=== PATIENT | female | born 1970 | race Caucasian/White ===

== ENCOUNTER 2017-09-06 17:14 | Emergency (ER) | payer BC ==
--- OUTSIDE RECORDS SUMMARY | 2017-09-06 17:16 | XMS REPORT | Summary of Care ---
:1970 Author Name INEZ MAYA D.O. Address Unavailable Unavailable , Care Team Providers Name Role Phone VALDEZ DELACRUZ, NA LY Unavailable Unavailable Functional Status Name Dates Details Functional status health issues are not documented Status: Name Dates Details Cognitive status health issues are not documented Status: Problems Name Dates Details Malabsorption due to intolerance, not elsewhere classified (579.8, K90.49) Status: Active Malnutrition (263.9, E46) Status: Active Medications Name Dates Details Medications not documented Allergies and Adverse Reactions Name Dates Details Allergy history not documented Status: Procedures Procedure Dates Details [L] Vitamin D, 25-Hydroxy, Total - [facility] Date: 22-Jul-2017 [QL] COMPREHENSIVE METABOLIC PANEL W/O eGFR Date: 22-Jul-2017 [QLH] VITAMIN A (RETINOL) Date: 22-Jul-2017 [QLH] VITAMIN E (TOCOPHEROL) Date: 22-Jul-2017 Immunization Name Dates Details Immunizations not documented Social History Name Dates Details Unknown if ever smoked Vital Signs Date Test Result Details No Known Vitals to report Results Date Description Value Details [id number] [] CBC (without differential) WBC 11.0 {K/CMM} (Above high threshold) Range: 3.7-10.4 RBC 4.89 {M/CMM} Range: 4.20-5.40 Hgb 14.6 g/dl Range: 12.0-16.0 Hct 43.2 % Range: 36.0-48.0 MCV 88.4 fL Range: 80.0-98.0 MCH 29.9 pg Range: 27.0-31.0 MCHC 33.8 g/dl Range: 32.0-36.0 RDW 13.7 % Range: 11.5-14.5 Platelet 321 {K/CMM} Range: 133-450 Mean Platelet Volume 9.6 fL Range: 7.4-10.4 [id number] [QLH] PTH, INTACT (WITHOUT CALCIUM) Parathyroid Hormone Intact 37.7 pg/ml Range: 18.4-80.1 :01 [[facility]] CMP W/EGFR Sodium Level 141 {mEq/l} Range: 135-145 Potassium Level 4.3 {mEq/l} Range: 3.5-5.1 Chloride Level 108 {mEq/l} Range: 95-109 Carbon Dioxide 24 {mEq/l} Range: 24-32 AGAP 13.3 {mEq/l} Range: 10.0-20.0 Glucose Lvl 100 mg/dl (Above high Range: 70-99 threshold) Comments: Adult reference range values reflect the clinical guidelinesof the [place] [employer]. Creatinine Lvl 0.60 mg/dl Range: 0.50-1.40 Blood Urea Nitrogen 11 mg/dl Range: 7-22 BUN/Creatinine Ratio 18 Range: 6-25 Total Protein 7.3 g/dl Range: 6.4-8.4 Albumin Lvl 4.0 g/dl Range: 3.5-5.0 Globulin 3.3 g/dl Range: 2.7-4.2 A/G Ratio 1.2 Range: 0.7-1.6 Calcium Level Total 9.3 mg/dl Range: 8.5-10.5 ALT 91 u/l (Above high Range: 0-65 threshold) AST 54 u/l (Above high Range: 0-37 threshold) Bili Total 0.4 mg/dl Range: 0.2-1.3 Alk Phos 98 u/l Range: 39-136 eGFR 110 {ML/MIN/1.7} Comments: The eGFR is calculated using the CKD-EPI formula. In most young, healthyindividuals the eGFR will be >90 mL/min/1.73m2. The eGFR declines with age. AneGFR of 60-89 may be normal in some populations, particularly the elderly, forwhom the CKD-EPI formula has not been extensively validated. Use of the eGFR isnot recommended in the following populations:Individuals with unstable creatinine concentratio ns, including patients and those with serious co-morbid conditions.Patients with extremes in muscle mass or diet.The data above are obtained from the National Kidney Disease Education Program(NK DEP) which additionally recommends that when the eGFR is used in patientswith extremes of body mass index for purposes of drug dosing, the eGFR shouldbe multiplied by the estimated BMI. [[facility]] IRON, TOTAL Iron 66 ug/dL Range: 30-160 [[facility]] TSH, 3RD GENERATION TSH 0.860 {uIU/ml} Range: 0.360-3.740 [[facility]] VITAMIN B12 Vitamin B12 Level 304 pg/ml Range: 254-1320 [[facility]] FOLATE, SERUM Folate Level 41.6 ng/ml Range: >=3.0 [[facility]] LIPID PANEL Chol 254 mg/dl (Above high Range: <=199 threshold) Trig 478 mg/dl (Above high Range: <=149 threshold) HDL Cholesterol 40 mg/dl (Below low Range: >=61 threshold) CHD Risk 6.35 (Above high threshold) Range: 3.90-5.80 LDL See Note mg/dl Range: <=99 Comments: LDL cholesterol cannot be calculated due to very high triglycerides (>400mg/dL). Recommend Direct LDL if clinically indicated. VLDL See Note Comments: VLDL - Cholesterol level cannot be accurately calculated due to very hightriglycerides (>400 mg/dL). [[facility]] HEMOGLOBIN A1c Hemoglobin A1c 5.8 % (Above high threshold) Range: <=5.6 [[facility]] VITAMIN B1, WHOLE BLOOD Vitamin B1 Level 177.6 nmol/L Range: 66.5-200.0 Comments: This test was developed and its performance characteristicsdetermined by [facility]. It has not been cleared orapproved by the Food and Drug Administration.Performed At: [address] [id number] [place], [place] [id number] Mcmillan MD Ph:[phone] [H] Vit A Vitamin A Level 43.9 ug/dL Range: 33.1-100.0 Comments: Reference intervals for vitamin A determined from NationalHealth and Nutrition Examination Survey, 4108-3360.Individuals with vitamin A less than 20 ug/dL areconsidered vitamin A deficient and those wit h serumconcentrations less than 10 ug/dL are considered severelydeficient.This test was developed and its performance characteristicsdetermined by [facility]. It has not been cleared orapproved by the Food and Drug Administration.Performed At: [address] [id number] Mcmillan MD Ph:[phone] [id number] [H] Vitamin E Lvl Alpha-Tocopherol 20.6 mg/L Range: 7.0-25.1 Gamma-Tocopherol 2.8 mg/L Range: 0.5-5.5 Comments: Reference intervals for alpha and gamma-tocopheroldetermined from National Health and Nutrition ExaminationSurvey, 8400-3913. Individuals with alpha-tocopherol levelsless than 0.5 mg/L are considered vi tamin E deficient.This test was developed and its performance characteristicsdetermined by [facility]. It has not been cleared orapproved by the Food and Drug Administration.Performed At: [facility] [place], [place] [id number] Mcmillan MD Ph: [phone] [id number] [H] [facility] COMMENT Comments: Test Ordered: [id number] 25-Hydroxyvitamin D LCMS D2+N645-Yartict, Vitamin D 33 ng/mL ESReference Range:All Ages: Target levels 30 - [id number]-[id number], Vitamin D-2 <1.0 ng/mL [id number], Vitamin D-3 33 ng/mL ESPerformed At: [address] [id number] Mcmillan MD Ph:[phone] At: [facility] [address] [place] [id number] Miller MD Ph:[phone] Plan of Care Name Dates Details Planned Observations Planned Goals not documented Instructions Name Dates Details Instructions not documented Encounters Appointment; INEZ MAYA D.O. On: 22-Jul-2017 10:00 Encounter Diagnosis: Problem not documented
--- OUTSIDE RECORDS SUMMARY | 2017-09-06 17:16 | XMS REPORT ---
:1970 Author Organization [employer] Care Team Providers Name Role Phone Garcia, Na Provider Role Unavailable Allergies, Adverse Reactions, Alerts Substance Reaction Event Type N.K.D.A. Info Not Available Non Drug Allergy Problems Problem Type Condition Code Onset Dates Condition Status Problem Nicotine dependence F17.200 Active Assessment Obesity (BMI 35.0-39.9 without E66.9 Active comorbidity) Problem Obesity E66.9 Active Assessment Vitamin D deficiency E55.9 Active Problem Encounter for screening mammogram Z12.31 Active for malignant neoplasm of breast Problem Cigarette nicotine dependence F17.210 Active without complication Problem Effusion of right ankle M25.471 Active Problem Fatty liver K76.0 Active Problem Obesity (BMI 30-39.9) E66.9 Active Assessment Pain in right ankle and joints of M25.571 Active right foot Assessment Abnormal LFTs R94.5 Active Problem Vitamin D deficiency E55.9 Active Assessment Fatty liver K76.0 Active Problem Obesity (BMI 35.0-39.9 without E66.9 Active comorbidity) Problem Abnormal LFTs R94.5 Active Problem Adult general medical exam Z00.00 Active Problem Pain in right ankle and joints of M25.571 Active right foot Assessment Hypertriglyceridemia E78.1 Active Assessment Adult general medical exam Z00.00 Active Assessment Effusion of right ankle M25.471 Active Assessment Cigarette nicotine dependence F17.210 Active without complication Problem Hypertriglyceridemia E78.1 Active Problem Influenza vaccination administered Z23 Active at current visit Problem Depression F32.9 Active Problem Polycystic ovarian syndrome E28.2 Active Medications Medication Code Code Instructions Start End Status Dosage System Date Date Chantix [facility] 97639705206 1 MG po twice a Dec 08, Active 1 tab Continuing day 2017 Month Joshua Flonase [facility] 93445097505 50 MCG/ACT Active 2 spray in Nasally Once a each day nostril Singulair ND 80089966294 10 MG Orally Active 1 tablet Once a day in the evening Fish Oil ND 55748805601 1000 MG Orally Active 1 capsule Once a day Estradiol [facility] 09705620227 1 MG Orally Active 1 tablet Daily for Three Weeks, 1 Week off Results No Known Results Summary Purpose eClinicalWorks Submission
--- OUTSIDE RECORDS SUMMARY | 2017-09-06 17:17 | XMS REPORT ---
:1970 Author Organization [employer] Care Team Providers Name Role Phone Garcia, Na Provider Role Unavailable Allergies, Adverse Reactions, Alerts Substance Reaction Event Type N.K.D.A. Info Not Available Non Drug Allergy Problems Problem Type Condition Code Onset Dates Condition Status Problem Encounter for screening mammogram Z12.31 Active for malignant neoplasm of breast Problem Cigarette nicotine dependence F17.210 Active without complication Problem Effusion of right ankle M25.471 Active Problem Fatty liver K76.0 Active Assessment Obesity (BMI 35.0-39.9 without E66.9 Active comorbidity) Problem Obesity (BMI 30-39.9) E66.9 Active Problem Vitamin D deficiency E55.9 Active Problem Obesity (BMI 35.0-39.9 without E66.9 Active comorbidity) Problem Abnormal LFTs R94.5 Active Problem Adult general medical exam Z00.00 Active Problem Pain in right ankle and joints of M25.571 Active right foot Assessment Cigarette nicotine dependence F17.210 Active without complication Assessment Hypertriglyceridemia E78.1 Active Assessment Fatty liver K76.0 Active Assessment Abnormal LFTs R94.5 Active Problem Hypertriglyceridemia E78.1 Active Problem Influenza vaccination administered Z23 Active at current visit Problem Depression F32.9 Active Problem Nicotine dependence F17.200 Active Problem Polycystic ovarian syndrome E28.2 Active Problem Obesity E66.9 Active Medications Medication Code Code Instructions Start End Status Dosage System Date Flonase [facility] 31936696737 50 MCG/ACT Active 2 spray in Nasally Once a each day nostril Fish Oil [facility] 28437115665 1000 MG Orally Active 1 capsule Once a day Zetia [facility] 30052350206 10 MG Orally August 05, Active 1 tablet Once a day 2017 Singulair [facility] 86658011832 10 MG Orally Active 1 tablet in Once a day the evening Estradiol ND 54055169748 1 MG Orally Active 1 tablet Daily for Three Weeks, 1 Week off Chantix [facility] 54925808772 1 MG Active USE Continuing DIRECTED Month Joshua Chantix [facility] 00632329872 1 MG po twice a Active 1 tab Continuing day Month Joshua Results No Known Results Summary Purpose eClinicalWorks Submission
--- OUTSIDE RECORDS SUMMARY | 2017-09-06 17:17 | XMS REPORT ---
:1970 Author Organization e[employer]Works Care Team Providers Name Role Phone Garcia, Na Provider Role Unavailable Allergies No Known Allergies Problems Problem Type Condition Code Onset Dates Condition Status Problem Encounter for screening mammogram Z12.31 Active for malignant neoplasm of breast Problem Cigarette nicotine dependence F17.210 Active without complication Problem Effusion of right ankle M25.471 Active Problem Fatty liver K76.0 Active Problem Obesity (BMI 30-39.9) E66.9 Active Problem [...] Problem Obesity E66.9 Active Medications Medication Code System Code Instructions Start End Date Status Dosage Date Chantix [facility] 46555487041 1 MG po twice a Active 1 tab Continuing day Month Joshua Results No Known Results Summary Purpose eClinicalWorks Submission
[2017-09-06] MEDS ORDERED: IBUPROFEN 200 MG TAB PO ONE (17:49)
--- NOTE | 2017-09-06 18:23 | ER ---
Nurse's Notes [facility] Name: Luana Andre Age: 46 yrs Sex: Female : 1970 Arrival Date: 09/06/2017 Time: 17:17 Bed 30 Private MD: Marge Garcia Diagnosis: Pain in right foot;Other sprain of right foot;Osteoporosis without current pathological fracture Presentation: 09/06 17:19 Presenting complaint: Patient states: right foot pain after stepping onto a chair that sv folds. Transition of care: patient was not received from another setting of care. Onset of symptoms was September 06, 2017. Care prior to arrival: None. 17:19 Method Of Arrival: Wheelchair sv 17:19 Acuity: ANA 4 sv 18:45 Risk Assessment: Do you want to hurt yourself or someone else? Patient reports no mb3 desire to harm self or others. Initial Sepsis Screen: Does the patient meet any 2 criteria? No. Patient's initial sepsis screen is negative. Does the patient have a suspected source of infection? No. Patient's initial sepsis screen is negative. 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 - Social history:: Smoking status: Patient uses tobacco products, denies chronic smoking, but will smoke occasionally. - Ebola Screening: : No symptoms or risks identified at this time. - Family history:: not pertinent. Screenin:44 Abuse screen: Denies threats or abuse. Nutritional screening: No deficits noted. mb3 Tuberculosis screening: No symptoms or risk factors identified. Fall Risk None identified. Assessment: 18:42 General: Appears in no apparent distress. comfortable, Behavior is calm, cooperative, mb3 appropriate for age. Pain: Complains of pain in right foot. Neuro: No deficits noted. Cardiovascular: No deficits noted. Respiratory: No deficits noted. GI: No deficits noted. No signs and/or symptoms were reported involving the gastrointestinal system. : No deficits noted. No signs and/or symptoms were reported regarding the genitourinary system. Musculoskeletal: Reports pain in right foot. Injury Description: Crush injury sustained to right foot. 18:47 Reassessment: pt refused crutches and boot. stated she has both at home. mb3 Vital Signs: 17:21 BP 102 / 72; Pulse 96; Resp 18; Temp 98.1; Pulse Ox 96% ; Weight 94.35 kg; Height 5 ft. sv 3 in. (160.02 cm); Pain 4/10; 18:42 BP 118 / 86; Pulse 80; Resp 16; Pulse Ox 97% on R/A; mb3 17:21 Body Mass Index 36.85 (94.35 kg, 160.02 cm) sv ED Course: 17:17 Patient arrived in ED. sb2 17:17 Marge Garcia MD is Private Physician. sb2 17:20 Triage completed. sv 17:21 Arm band placed on right wrist. sv 17:29 Russell Seaman MD is Attending Physician. [facility] [place] 17:38 Prabhakar Peña RN is Primary Nurse. mb3 18:17 Foot Right 3 View XRAY In Process Unspecified. EDMS 18:22 Marge Garcia MD is Referral Physician. [facility] [place] 18:22 Mert Christensen MD is Referral Physician. [facility] [place] 18:45 Patient has correct armband on for positive identification. mb3 18:45 No provider procedures requiring assistance completed. Patient did not have IV access mb3 during this emergency room visit. Administered Medications: 17:48 Drug: Motrin 600 mg Route: PO; mb3 18:46 Follow up: Response: No adverse reaction mb3 18:41 Drug: [place] (7.5 mg-325 mg) 1 tabs Route: PO; mb3 18:47 Follow up: Response: Medication administered at discharge. mb3 Outcome: 18:22 Discharge ordered by . [facility] [place] 18:44 Discharged to home via wheelchair, with family. mb3 18:44 Condition: stable 18:44 Discharge instructions given to patient, family, Instructed on discharge instructions, follow up and referral plans. medication usage, crutch walking, Demonstrated understanding of instructions, follow-up care, medications, crutch walking, Prescriptions given X refused, stated she had some already at home 18:47 Patient left the ED. mb3 Signatures: Dispatcher [employer] Simran Sherman RN RN Russell Seaman MD MD cha Billeau, Sheri sb2 Prabhakar Peña RN RN mb3 Corrections: (The following items were deleted from the chart) 17:22 17:21 Pulse 96bpm; Resp 18bpm; Pulse Ox 96%; Temp 98.1F; 94.35 kg; Height 5 ft. 3 in.; sv BMI: 36.8; Pain 4/10; sv
--- NOTE | 2017-09-06 18:23 | EDPHYS ---
Physician Documentation [facility] Name: Luana Andre Age: 46 yrs Sex: Female : 1970 Arrival Date: 09/06/2017 Time: 17:17 Bed 30 Private MD: Marge Garcia ED Physician Russell Seaman HPI: 09/06 18:14 This 46 yrs old Female presents to ER via Wheelchair with complaints of Foot eric Injury. 18:14 The patient presents with decreased range of motion, pain, that is acute. The eric complaints affect the right foot. Context: The problem was sustained outdoors. Onset: The symptoms/episode began/occurred just prior to arrival. Modifying factors: The symptoms are alleviated by elevation of extremity, the symptoms are aggravated by weight bearing. Associated signs and symptoms: The patient has no apparent associated signs or symptoms. Severity of symptoms: At their worst the symptoms were mild, in the emergency department the symptoms are unchanged. The patient has not experienced similar symptoms in the past. 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 - Social history:: Smoking status: Patient uses tobacco products, denies chronic smoking, but will smoke occasionally. - Ebola Screening: : No symptoms or risks identified at this time. - Family history:: not pertinent. ROS: 18:14 Constitutional: Negative for fever, chills, and weight loss, Eyes: Negative for injury, eric pain, redness, and discharge, ENT: Negative for injury, pain, and discharge, Neck: Negative for injury, pain, and swelling, Cardiovascular: Negative for chest pain, palpitations, and edema, Respiratory: Negative for shortness of breath, cough, wheezing, and pleuritic chest pain, Abdomen/GI: Negative for abdominal pain, nausea, vomiting, diarrhea, and constipation, Back: Negative for injury and pain, : Negative for injury, bleeding, discharge, and swelling, Skin: Negative for injury, rash, and discoloration, Neuro: Negative for headache, weakness, numbness, tingling, and seizure, Psych: Negative for depression, anxiety, suicide ideation, homicidal ideation, and hallucinations, Allergy/Immunology: Negative for hives, rash, and allergies, Endocrine: Negative for neck swelling, polydipsia, polyuria, polyphagia, and marked weight changes, Hematologic/Lymphatic: Negative for swollen nodes, abnormal bleeding, and unusual bruising. 18:14 MS/extremity: Positive for pain, tenderness, of the dorsum of right foot. Exam: 18:14 Constitutional: This is a well developed, well nourished patient who is awake, alert, eric and in no acute distress. Head/Face: Normocephalic, atraumatic. Eyes: Pupils equal round and reactive to light, extra-ocular motions intact. Lids and lashes normal. Conjunctiva and sclera are non-icteric and not injected. Cornea within normal limits. Periorbital areas with no swelling, redness, or edema. ENT: Nares patent. No nasal discharge, no septal abnormalities noted. Tympanic membranes are normal and external auditory canals are clear. Oropharynx with no redness, swelling, or masses, exudates, or evidence of obstruction, uvula midline. Mucous membranes moist. Neck: Trachea midline, no thyromegaly or masses palpated, and no cervical lymphadenopathy. Supple, full range of motion without nuchal rigidity, or vertebral point tenderness. No Meningismus. Chest/axilla: Normal chest wall appearance and motion. Nontender with no deformity. No lesions are appreciated. Cardiovascular: Regular rate and rhythm with a normal S1 and S2. No gallops, murmurs, or rubs. Normal PMI, no JVD. No pulse deficits. Respiratory: Lungs have equal breath sounds bilaterally, clear to auscultation and percussion. No rales, rhonchi or wheezes noted. No increased work of breathing, no retractions or nasal flaring. Abdomen/GI: Soft, non-tender, with normal bowel sounds. No distension or tympany. No guarding or rebound. No evidence of tenderness throughout. Back: No spinal tenderness. No costovertebral tenderness. Full range of motion. Female : Normal external genitalia. Skin: Warm, dry with normal turgor. Normal color with no rashes, no lesions, and no evidence of cellulitis. Neuro: Awake and alert, GCS 15, oriented to person, place, time, and situation. Cranial nerves II-XII grossly intact. Motor strength 5/5 in all extremities. Sensory grossly intact. Cerebellar exam normal. Normal gait. Psych: Awake, alert, with orientation to person, place and time. Behavior, mood, and affect are within normal limits. 18:14 Musculoskeletal/extremity: Extremities: noted in the right foot: decreased ROM, pain. Vital Signs: 17:21 BP 102 / 72; Pulse 96; Resp 18; Temp 98.1; Pulse Ox 96% ; Weight 94.35 kg; Height 5 ft. sv 3 in. (160.02 cm); Pain 4/10; 18:42 BP 118 / 86; Pulse 80; Resp 16; Pulse Ox 97% on R/A; mb3 17:21 Body Mass Index 36.85 (94.35 kg, 160.02 cm) sv MDM: 17:29 Patient medically screened. [facility] 18:22 Data reviewed: vital signs, nurses notes, radiologic studies, plain films. [facility] 09/06 17:30 Order name: Foot Right 3 View XRAY [facility] 09/06 17:30 Order name: Ice pack; Complete Time: 17:58 [facility] Administered Medications: 17:48 Drug: Motrin 600 mg Route: PO; mb3 18:46 Follow up: Response: No adverse reaction 3 18:41 Drug: [place] (7.5 mg-325 mg) 1 tabs Route: PO; mb3 18:47 Follow up: Response: Medication administered at discharge. 3 Disposition: 09/06/17 18:22 Discharged to Home. Impression: Pain in right foot, Other sprain of right foot, Osteoporosis without current pathological fracture. - Condition is Stable. - Discharge Instructions: Foot Contusion, Foot Sprain, Foot Contusion, Zwna-ai-Clac. - Prescriptions for Tylenol- Codeine #3 300-30 mg Oral Tablet - take 2 tablet by ORAL route every 6 hours As needed; 30 tablet. - Medication Reconciliation Form, Thank You Letter, Antibiotic Education, Prescription Opioid Use form. - Follow up: Marge Garcia; When: 2 - 3 days; Reason: Recheck today's complaints, Continuance of care, Re-evaluation by your physician. Follow up: Mert Christensen; When: 2 - 3 days; Reason: Recheck today's complaints, Re-evaluation by your physician. - Problem is new. - Symptoms have improved. Signatures: Dispatcher [employer] Simran Sherman, RN RN Russell Early MD MD cha Barnett, Mark, RN RN mb3 Corrections: (The following items were deleted from the chart) 18:47 18:22 09/06/2017 18:22 Discharged to Home. Impression: Pain in right foot; Other sprain mb3 of right foot; Osteoporosis without current pathological fracture. Condition is Stable. Discharge Instructions: Foot Contusion, Foot Sprain, Foot Contusion, Mtey-as-Anvj. Prescriptions for Tylenol-Codeine #3 300-30 mg Oral Tablet - take 2 tablet by ORAL route every 6 hours As needed; 30 tablet. and Forms are Medication Reconciliation Form, Thank You Letter, Antibiotic Education, Prescription Opioid Use. Follow up: Marge Garcia; When: 2 - 3 days; Reason: Recheck today's complaints, Continuance of care, Re-evaluation by your physician. Follow up: Mert Christensen; When: 2 - 3 days; Reason: Recheck today's complaints, Re-evaluation by your physician. Problem is new. Symptoms have improved. eric
[2017-09-06] MEDS ORDERED: HYDROCODONE/APAP 7.5/325 MG TAB ONE (18:36)
[2017-09-06 18:51] VITALS: TEMP 98.1
[2017-09-06 18:53] VITALS: BP 118/86; O2SAT 97
--- NOTE | 2017-09-06 20:23 | RAD REPORT ---
EXAM DESCRIPTION: RAD - Foot Right 3 View - 09/06/2017 6:20 pm CLINICAL HISTORY: Right foot pain following trauma COMPARISON: August 2016 FINDINGS: Osteopenic changes are present in the foot progressive from the prior study. An acute frac ture is not identifiable. There is a large bone screw in place fusing the talus and calcaneus. Patien t has a large plantar spur. Tibiotalar joint space is narrowed with degenerative change present. Dege nerative change and bunion formation at the first MTP joint. No pathologic bone process. No air or foreign body in the soft tissues. IMPRESSION: No fracture or acute bone process. Postsurgical, degenerative and osteopenic changes in the foot are detailed above.
== END 2017-09-06 18:47 | disposition home or self-care (01) ==
LOC: ER 17:14
DX: S93.691A Other sprain of right foot, initial encounter (principal); M81.0 Age-related osteoporosis without current pathological fracture; Z72.0 Tobacco use
CPT/HCPCS: 99284

== ENCOUNTER 2017-11-13 18:16 | Emergency (ER) | payer BC ==
--- OUTSIDE RECORDS SUMMARY | 2017-11-13 18:18 | XMS REPORT ---
[...] Start End Status Dosage System Date Flonase [facility] 26444223496 50 MCG/ACT Active 2 spray in Nasally Once a each day nostril Fish Oil [facility] 55651452273 1000 MG Orally Active 1 capsule Once a day Zetia [facility] 34447732849 10 MG Orally August 05, Active 1 tablet Once a day 2017 Singulair [facility] 23125530544 10 MG Orally Active 1 tablet in Once a day the evening Estradiol ND 74882907134 1 MG Orally Active 1 tablet Daily for Three Weeks, 1 Week off Chantix [facility] 05796508442 1 MG Active USE Continuing DIRECTED Month Joshua Chantix [facility] 63321692961 1 MG po twice a Active 1 tab Continuing day Month Joshua Results No Known Results Summary Purpose eClinicalWorks Submission
--- OUTSIDE RECORDS SUMMARY | 2017-11-13 18:18 | XMS REPORT ---
[...] End Status Dosage System Date Date Chantix [facility] 08031566010 1 MG po twice a Dec 08, Active 1 tab Continuing day 2017 Month Joshua Flonase [facility] 75133110017 50 MCG/ACT Active 2 spray in Nasally Once a each day nostril Singulair ND 55502749971 10 MG Orally Active 1 tablet Once a day in the evening Fish Oil ND 11142617973 1000 MG Orally Active 1 capsule Once a day Estradiol [facility] 11791358991 1 MG Orally Active 1 tablet Daily for Three Weeks, 1 Week off Results No Known Results Summary Purpose eClinicalWorks Submission
--- OUTSIDE RECORDS SUMMARY | 2017-11-13 18:18 | XMS REPORT ---
[...] Start End Date Status Dosage Date Chantix [facility] 20548056855 1 MG po twice a Active 1 tab Continuing day Month Joshua Results No Known Results Summary Purpose eClinicalWorks Submission
[2017-11-13] MEDS ORDERED: NA CHLORIDE 0.9% 1,000 ML ONE (18:57)
[2017-11-13] MEDS ORDERED: DICYCLOMINE HCL 10 MG CAP ONE (18:57)
[2017-11-13 19:10] LABS: Urine Blood NEGATIVE (NEG); Urine Glucose NEGATIVE (NEG); Urine Protein NEGATIVE (NEG); Urine Specific Gravity 1.025 (1.005-1.030)
[2017-11-13 19:10] LABS: Absolute Lymphocytes (CBC) 4.4 K/uL (0.7-4.9); Absolute Monocytes 0.7 K/uL (0.1-1.3); Absolute Neutrophil 7.4 K/uL (1.8-8.0); Basophils % 1.2 % (0-1.3); Eosinophils % 2.1 % (0-4.4); Hematocrit 42.4 % (36.0-45.0); MCH 30.4 pg (27.0-35.0); MCV 88.3 fL (80-100); MPV 9.1 fL (7.6-11.3); Monocytes % 5.1 % (3.3-12.3)
[2017-11-13 19:32] LABS: ALT/SGPT 71 U/L (12-78); AST/SGOT 39 U/L (15-37); Albumin 3.6 g/dL (3.4-5.0); Alkaline Phosphatase 98 U/L (45-117); BUN Blood Urea Nitrogen 14 mg/dL (7-18); Bicarbonate 28 mmol/L (21-32); Bilirubin Direct < 0.1 mg/dL (0-0.2); Bilirubin Total 0.3 mg/dL (0.2-1.0); Glucose Level 146 mg/dL (74-106); Potassium 3.7 mmol/L (3.5-5.1); Protein, Total 7.3 g/dL (6.4-8.2); Sodium Level 140 mmol/L (136-145)
[2017-11-13 21:13] LABS: Urine Bacteria 20-50 /HPF (<20); Urine Culture Reflex Order REFLEXED; Urine Mucus 1+ /HPF (NONE SEEN); Urine RBC <5 /HPF (NONE SEEN)
--- NOTE | 2017-11-13 21:54 | RAD REPORT ---
EXAM DESCRIPTION: CT - Abdomen Pelvis W Contrast - 11/13/2017 9:12 pm CLINICAL HISTORY: Abdominal pain. For 2 days COMPARISON: 2012 TECHNIQUE: Computed axial tomography of the abdomen and pelvis was obtained. 100 cc Isovue-300 is ad ministered intravenously. Oral contrast was given. All CT scans are performed using dose optimization technique as appropriate and may include automated exposure control or mA/KV adjustment according to patient size. FINDINGS: Fatty infiltration liver is present Spleen, pancreas, adrenals and kidneys appear unremarkable. The appendix is not seen. There is no evidence of diverticulitis A hysterectomy has been performed. Short segment narrowing involves proximal sigmoid colon Tiny umbilical hernia seen IMPRESSION: Short segment narrowing involving the proximal sigmoid colon may be secondary to spasm. A small mass can also have this appearance and follow up is recommended Fatty infiltration of liver
--- NOTE | 2017-11-13 21:58 | ER ---
Nurse's Notes [facility] Name: Luana Andre Age: 47 yrs Sex: Female : 1970 Arrival Date: 11/13/2017 Time: 18:17 Bed 28 Private MD: Diagnosis: Generalized abdominal pain Presentation: 11/13 18:24 Presenting complaint: Patient states: generalized abd pain x 2-3 days ago. pt reports aa5 nausea, denies vomiting, denies diarrhea. Transition of care: patient was not received from another setting of care. Onset of symptoms was October 2017. Risk Assessment: Do you want to hurt yourself or someone else? Patient reports no desire to harm self or others. Initial Sepsis Screen: Does the patient meet any 2 criteria? No. Patient's initial sepsis screen is negative. Does the patient have a suspected source of infection? No. Patient's initial sepsis screen is negative. Care prior to arrival: None. 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 - Social history:: Smoking status: Patient uses tobacco products, denies chronic smoking, but will smoke occasionally. - Ebola Screening: : No symptoms or risks identified at this time. Screenin:13 Abuse screen: Denies threats or abuse. Denies injuries from another. Nutritional mg2 screening: No deficits noted. Tuberculosis screening: No symptoms or risk factors identified. Fall Risk IV access (20 points). Assessment: 19:12 General: Appears in no apparent distress. comfortable, Behavior is calm, cooperative. mg2 Pain: Complains of pain in abdomen Pain does not radiate. Pain currently is 4 out of 10 on a pain scale. Quality of pain is described as aching, Pain began gradually. Neuro: Level of Consciousness is awake, alert, obeys commands, Oriented to person, place, time, situation. Cardiovascular: Capillary refill < 3 seconds Patient's skin is warm and dry. Respiratory: Airway is patent Respiratory effort is even, unlabored, Respiratory pattern is regular, symmetrical. GI: Abd is soft and non tender X 4 quads. : Urine is clear. EENT: No signs and/or symptoms were reported regarding the EENT system. Derm: Skin is intact, Skin is pink, warm \T\ dry. normal. Musculoskeletal: Circulation, motion, and sensation intact. 19:42 Reassessment: Patient appears in no apparent distress at this time. Patient and/or mg2 family updated on plan of care and expected duration. Pain level reassessed. Patient is alert, oriented x 3, equal unlabored respirations, skin warm/dry/pink. 21:00 Reassessment: patient is being sent to ct scan now. mg2 Vital Signs: 18:25 BP 115 / 76; Pulse 96; Resp 16 S; Temp 97.0(TE); Pulse Ox 97% on R/A; Weight 94.35 kg aa5 (R); Height 5 ft. 4 in. (162.56 cm) (R); Pain 4/10; 19:47 BP 97 / 67; Pulse 90; Resp 18; Pulse Ox 98% on R/A; mg2 21:36 BP 107 / 67; Pulse 89; Resp 18; Pulse Ox 97% ; mg2 18:25 Body Mass Index 35.70 (94.35 kg, 162.56 cm) aa5 ED Course: 18:17 Patient arrived in ED. ds1 18:25 Triage completed. aa5 18:25 Arm band placed on. aa5 18:35 Mes[facility]C [facility]. snw 18:35 Karl Bullock MD is Attending Physician. snw 18:47 Froylan Rivera RN is Primary Nurse. mg2 18:58 Inserted saline lock: 20 gauge in left antecubital area, using aseptic technique. Blood mt collected. 19:13 No provider procedures requiring assistance completed. IV discontinued, intact, mg2 bleeding controlled, No redness/swelling at site. Pressure dressing applied. 19:13 Inserted saline lock: 22 gauge in right antecubital area, using aseptic technique. mg2 19:14 Patient has correct armband on for positive identification. mg2 21:[address] via stretcher. nj 21:12 CT Abd/Pelvis - W/Contrast In Process Unspecified. EDMS 22:15 IV discontinued, intact, bleeding controlled, No redness/swelling at site. Pressure mg2 dressing applied. Administered Medications: 19:04 Drug: Bentyl 20 mg Route: PO; mg2 21:09 Follow up: Response: No adverse reaction; Marked relief of symptoms mg2 19:11 Drug: NS 0.9% 1000 ml Route: IV; Rate: 1 bolus; Site: right antecubital; mg2 21:09 Follow up: Response: No adverse reaction; IV Status: Completed infusion mg2 Outcome: 21:57 Discharge ordered by MD. melvin 22:15 Discharged to home ambulatory. mg2 22:15 Condition: stable 22:15 Discharge instructions given to patient, Instructed on discharge instructions, follow up and referral plans. medication usage, Demonstrated understanding of instructions, follow-up care, medications, Prescriptions given X 2. 22:16 Patient left the ED. mg2 Signatures: Dispatcher [employer] EDMS Mesha Amanda, BIG MACHINE CONSULTANT-C BIG MACHINE CONSULTANT-Csnw Makenna Burns ds1 Leta Charles RN RN aa5 [facility] Froylan Rivera RN RN mg2
--- NOTE | 2017-11-13 21:58 | EDPHYS ---
Physician Documentation [facility] Name: Luana Andre Age: 47 yrs Sex: Female : 1970 Arrival Date: 11/13/2017 Time: 18:17 Bed 28 Private MD: ED Physician Karl Bullock HPI: 11/13 18:47 This 47 yrs old Female presents to ER via Ambulatory with complaints of snw Abdominal Pain. 18:47 The patient presents with abdominal pain that is diffuse. Onset: The symptoms/episode snw began/occurred gradually, 3 day(s) ago, and became persistent. Associated signs and symptoms: Pertinent positives: "twisting pressure like my guts are going to fall out". The symptoms are described as crampy. Severity of pain: At its worst the pain was moderate. The patient has not experienced similar symptoms in the past. The patient has not recently seen a physician. 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 - Social history:: Smoking status: Patient uses tobacco products, denies chronic smoking, but will smoke occasionally. - Ebola Screening: : No symptoms or risks identified at this time. ROS: 18:46 Constitutional: Negative for fever, chills, and weight loss, Eyes: Negative for injury, snw pain, redness, and discharge, ENT: Negative for injury, pain, and discharge, Neck: Negative for injury, pain, and swelling, Cardiovascular: Negative for chest pain, palpitations, and edema, Respiratory: Negative for shortness of breath, cough, wheezing, and pleuritic chest pain, Back: Negative for injury and pain, : Negative for injury, bleeding, discharge, and swelling, MS/Extremity: Negative for injury and deformity, Skin: Negative for injury, rash, and discoloration, Neuro: Negative for headache, weakness, numbness, tingling, and seizure. 18:46 Abdomen/GI: Positive for abdominal pain, Negative for nausea, vomiting, and diarrhea. Exam: 18:46 Constitutional: This is a well developed, well nourished patient who is awake, alert, snw and in no acute distress. Head/Face: Normocephalic, atraumatic. Eyes: Pupils equal round and reactive to light, extra-ocular motions intact. Lids and lashes normal. Conjunctiva and sclera are non-icteric and not injected. Cornea within normal limits. Periorbital areas with no swelling, redness, or edema. ENT: Nares patent. No nasal discharge, no septal abnormalities noted. Tympanic membranes are normal and external auditory canals are clear. Oropharynx with no redness, swelling, or masses, exudates, or evidence of obstruction, uvula midline. Mucous membranes moist. Neck: Trachea midline, no thyromegaly or masses palpated, and no cervical lymphadenopathy. Supple, full range of motion without nuchal rigidity, or vertebral point tenderness. No Meningismus. Chest/axilla: Normal chest wall appearance and motion. Nontender with no deformity. No lesions are appreciated. Cardiovascular: Regular rate and rhythm with a normal S1 and S2. No gallops, murmurs, or rubs. Normal PMI, no JVD. No pulse deficits. Respiratory: Lungs have equal breath sounds bilaterally, clear to auscultation and percussion. No rales, rhonchi or wheezes noted. No increased work of breathing, no retractions or nasal flaring. Back: No spinal tenderness. No costovertebral tenderness. Full range of motion. Skin: Warm, dry with normal turgor. Normal color with no rashes, no lesions, and no evidence of cellulitis. MS/ Extremity: Pulses equal, no cyanosis. Neurovascular intact. Full, normal range of motion. Neuro: Awake and alert, GCS 15, oriented to person, place, time, and situation. Cranial nerves II-XII grossly intact. Motor strength 5/5 in all extremities. Sensory grossly intact. Cerebellar exam normal. Normal gait. Psych: Awake, alert, with orientation to person, place and time. Behavior, mood, and affect are within normal limits. 18:46 Abdomen/GI: Inspection: abdomen appears normal, Bowel sounds: normal, Palpation: nontender, in all quadrants. Vital Signs: 18:25 BP 115 / 76; Pulse 96; Resp 16 S; Temp 97.0(TE); Pulse Ox 97% on R/A; Weight 94.35 kg aa5 (R); Height 5 ft. 4 in. (162.56 cm) (R); Pain 4/10; 19:47 BP 97 / 67; Pulse 90; Resp 18; Pulse Ox 98% on R/A; mg2 21:36 BP 107 / 67; Pulse 89; Resp 18; Pulse Ox 97% ; mg2 18:25 Body Mass Index 35.70 (94.35 kg, 162.56 cm) aa5 MDM: 18:35 Patient medically screened. snw 22:04 Data reviewed: vital signs, nurses notes. Data interpreted: Pulse oximetry: on room air snw is 97 %. Interpretation: normal. Counseling: I had a detailed discussion with the patient and/or guardian regarding: the historical points, exam findings, and any diagnostic results supporting the discharge/admit diagnosis, lab results, radiology results, to return to the emergency department if symptoms worsen or persist or if there are any questions or concerns that arise at home. Special discussion: Based on the history and exam findings, there is no indication for further emergent testing or inpatient evaluation. I discussed with the patient/guardian the need to see the maintenance controller for further evaluation of the symptoms. I discussed with the patient/guardian the need to see the primary care provider for further evaluation of the symptoms. ED course: discussed with pt the need to f/u GI and impression of CT per Dr. Kay. She voices understanding and states she will definitely follow up. 11/13 18:38 Order name: Urine Dipstick--Ancillary (enter results); Complete Time: 19:12 eb 11/13 18:38 Order name: Urine --Ancillary (enter results); Complete Time: 19:12 eb 11/13 18:40 Order name: Urine Microscopic Only; Complete Time: 21:20 snw 11/13 18:46 Order name: Basic Metabolic Panel; Complete Time: 19:49 snw 11/13 18:46 Order name: CBC with Diff; Complete Time: 19:22 snw 11/13 18:46 Order name: Hepatic Function; Complete Time: 19:49 snw 11/13 18:46 Order name: Labs collected and sent; Complete Time: 18:58 snw 11/13 19:23 Order name: CT Abd/Pelvis - W/Contrast; Complete Time: 21:57 snw 11/13 21:14 Order name: Urine Culture EDOH Administered Medications: 19:04 Drug: Bentyl 20 mg Route: PO; mg2 21:09 Follow up: Response: No adverse reaction; Marked relief of symptoms mg2 19:11 Drug: NS 0.9% 1000 ml Route: IV; Rate: 1 bolus; Site: right antecubital; mg2 21:09 Follow up: Response: No adverse reaction; IV Status: Completed infusion mg2 Disposition: 11/14 09:21 Co-signature as Attending Physician, Karl Bullock MD I agree with the assessment and kdr plan of care. Disposition: 11/13/17 21:57 Discharged to Home. Impression: Generalized abdominal pain. - Condition is Stable. - Discharge Instructions: Abdominal Pain, Adult, Constipation, Adult, Rehydration, Adult. - Prescriptions for Bentyl 20 mg Oral Tablet - take 1 tablet by ORAL route every 6 hours As needed; 20 tablet. Miralax 17 gram/dose Oral - take 1 packet by ORAL route once daily dilute powder in 8 ounces of water or juice; 1 box. - Medication Reconciliation Form, Thank You Letter, Antibiotic Education, Prescription Opioid Use form. - Follow up: Private Physician; When: 2 - 3 days; Reason: Recheck today's complaints, Continuance of care, Re-evaluation by your physician. Follow up: Emergency Department; When: As needed; Reason: Worsening of condition. Signatures: Dispatcher [employer] [facility] Karl Bullock MD MD [facility] Mesha Amanda, CARTON MAKING MACHINE OPERATOR-C CARTON MAKING MACHINE OPERATOR-Csnw Leta Charles, RN RN aa5 Froylan Rivera RN RN mg2 Corrections: (The following items were deleted from the chart) 11/13 22:16 21:57 11/13/2017 21:57 Discharged to Home. Impression: Generalized abdominal pain. mg2 Condition is Stable. Forms are Medication Reconciliation Form, Thank You Letter, Antibiotic Education, Prescription Opioid Use. Follow up: Private Physician; When: 2 - 3 days; Reason: Recheck today's complaints, Continuance of care, Re-evaluation by your physician. Follow up: Emergency Department; When: As needed; Reason: Worsening of condition. snw
[2017-11-13 22:23] VITALS: TEMP 97
[2017-11-13 22:26] VITALS: BP 107/67; O2SAT 97
== END 2017-11-13 22:16 | disposition home or self-care (01) ==
LOC: ER 18:16
DX: R10.84 Generalized abdominal pain (principal); Z72.0 Tobacco use; Z88.5 Allergy status to narcotic agent
CPT/HCPCS: 36415; 74177; 80048; 80076; 81003; 81015; 81025; 85025; 87086; 87088; 96360; 96361; 99284; J7030; Q9967

== ENCOUNTER 2018-04-03 13:59 | Emergency (ER) | payer BC ==
--- OUTSIDE RECORDS SUMMARY | 2018-04-03 14:02 | XMS REPORT ---
[...] End Status Dosage System Date Date Chantix [facility] 28199624523 1 MG po twice a Dec 08, Active 1 tab Continuing day 2017 Month Joshua Flonase [facility] 11831123025 50 MCG/ACT Active 2 spray in Nasally Once a each day nostril Singulair ND 01235835378 10 MG Orally Active 1 tablet Once a day in the evening Fish Oil ND 32760194068 1000 MG Orally Active 1 capsule Once a day Estradiol [facility] 99746180977 1 MG Orally Active 1 tablet Daily for Three Weeks, 1 Week off Results No Known Results Summary Purpose eClinicalWorks Submission
--- OUTSIDE RECORDS SUMMARY | 2018-04-03 14:03 | XMS REPORT ---
[...] Start End Date Status Dosage Date Chantix [facility] 08197706026 1 MG po twice a Active 1 tab Continuing day Month Joshua Results No Known Results Summary Purpose eClinicalWorks Submission
--- OUTSIDE RECORDS SUMMARY | 2018-04-03 14:03 | XMS REPORT ---
[...] Start End Status Dosage System Date Flonase [facility] 33191773275 50 MCG/ACT Active 2 spray in Nasally Once a each day nostril Fish Oil [facility] 93161683212 1000 MG Orally Active 1 capsule Once a day Zetia [facility] 20451768367 10 MG Orally August 05, Active 1 tablet Once a day [address] [facility] 30535904429 10 MG Orally Active 1 tablet in Once a day the evening Estradiol ND 39385224705 1 MG Orally Active 1 tablet Daily for Three Weeks, 1 Week off Chantix [facility] 38188191197 1 MG Active USE Continuing DIRECTED Month Joshua Chantix [facility] 00678643925 1 MG po twice a Active 1 tab Continuing day Month Joshua Results No Known Results Summary Purpose eClinicalWorks Submission
--- NOTE | 2018-04-03 15:13 | RAD REPORT ---
EXAM DESCRIPTION: US - Extremity Venous Uni Ltd - 04/03/2018 2:59 pm CLINICAL HISTORY: Left leg pain COMPARISON: None. TECHNIQUE: Real-time sonographic evaluation of the left lower extremity deep venous system was perfo rmed. FINDINGS: Normal compressibility, flow augmentation, phasic flow and spontaneous flow are identified in the left lower extremity common femoral, superficial femoral, popliteal and posterior tibial vein s. No intraluminal filling defects seen. IMPRESSION: No DVT in the left lower extremity.
--- NOTE | 2018-04-03 15:55 | ER ---
Nurse's Notes [facility] Name: Luana Andre Age: 47 yrs Sex: Female : 1970 Arrival Date: 04/03/2018 Time: 14:03 Bed 25 Private MD: Marge Garcia Diagnosis: Paresthesia of skin Presentation: 04/03 14:27 Presenting complaint: Patient states: left thigh pain x 3 weeks, recent gastric sleeve sv sx on 02/20/19. Transition of care: patient was not received from another setting of care. Onset of symptoms was February 2018. Care prior to arrival: None. 14:27 Method Of Arrival: Ambulatory sv 14:27 Acuity: ANA 3 sv 15:00 Risk Assessment: Do you want to hurt yourself or someone else? Patient reports no ca1 desire to harm self or others. 15:00 Initial Sepsis Screen: Does the patient meet any 2 criteria? No. Patient's initial ca1 sepsis screen is negative. Does the patient have a suspected source of infection? No. Patient's initial sepsis screen is negative. Triage Assessment: 14:29 General: Appears in no apparent distress. uncomfortable, Behavior is calm, cooperative, sv appropriate for age. Pain: Complains of pain in left leg Pain currently is 7 out of 10 on a pain scale. Neuro: Level of Consciousness is awake, alert, obeys commands, Oriented to person, place, time, situation, Gait is steady. Respiratory: Respiratory effort is even, unlabored, Respiratory pattern is regular, symmetrical. 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 - Social history:: Smoking status: Patient uses tobacco products, smokes one-half pack cigarettes per day. - Ebola Screening: : No symptoms or risks identified at this time. Screenin:00 Abuse screen: Denies threats or abuse. Denies injuries from another. Nutritional ca1 screening: No deficits noted. Tuberculosis screening: No symptoms or risk factors identified. Fall Risk None identified. Assessment: 15:00 General: Appears in no apparent distress. comfortable, Behavior is calm, cooperative, ca1 appropriate for age. Pain: Complains of pain in left leg Pain currently is 6 out of 10 on a pain scale. Neuro: Level of Consciousness is awake, alert, obeys commands, Oriented to person, place, time, situation. Cardiovascular: Heart tones S1 S2 Capillary refill < 3 seconds Patient's skin is warm and dry. Respiratory: Airway is patent Trachea midline Respiratory effort is even, unlabored, Respiratory pattern is regular, symmetrical, Breath sounds are clear bilaterally. GI: No signs and/or symptoms were reported involving the gastrointestinal system. : No signs and/or symptoms were reported regarding the genitourinary system. EENT: No signs and/or symptoms were reported regarding the EENT system. Derm: Skin is intact, is healthy with good turgor, Skin is pink, warm \T\ dry. Musculoskeletal: Circulation, motion, and sensation intact. Range of motion: limited in left leg. 15:50 Reassessment: Patient appears in no apparent distress at this time. Patient and/or ca1 family updated on plan of care and expected duration. Pain level reassessed. Patient is alert, oriented x 3, equal unlabored respirations, skin warm/dry/pink. Dr. Bullock at bedside. Vital Signs: 14:29 BP 120 / 68; Pulse 79; Resp 18; Temp 97.5; Pulse Ox 98% ; Weight 83.91 kg; Height 5 ft. sv 3 in. (160.02 cm); Pain 7/10; 15:00 BP 122 / 71; Pulse 81; Resp 18; Pulse Ox 100% on R/A; ca1 15:50 BP 121 / 75; Pulse 78; Resp 18; Pulse Ox 99% on R/A; ca1 14:29 Body Mass Index 32.77 (83.91 kg, 160.02 cm) sv ED Course: 14:03 Patient arrived in ED. sb2 14:04 Marge Garcia MD is Private Physician. sb2 14:28 Triage completed. sv 14:29 Arm band placed on Patient placed in waiting room, Patient notified of wait time. sv 14:59 US Extremity Venous Unilateral Ltd In Process Unspecified. EDMS 15:00 Patient has correct armband on for positive identification. Placed in gown. Bed in low ca1 position. Call light in reach. Side rails up X 1. Pulse ox on. NIBP on. Warm blanket given. 15:05 Karl Bullock MD is Attending Physician. kdr 15:25 Francie Walker, RN is Primary Nurse. ca1 15:53 Marge Garcia MD is Referral Physician. kdr 16:13 No provider procedures requiring assistance completed. Patient did not have IV access ca1 during this emergency room visit. Administered Medications: 16:01 Not Given (Physician Discretion): Neurontin 300 mg PO once ca1 16:03 Drug: neurontin 400 mg PO 1 caps Route: PO; ca1 16:05 Follow up: Response: Medication administered at discharge. ca1 Outcome: 15:53 Discharge ordered by . kdr 16:13 Discharged to home ambulatory. ca1 16:13 Condition: stable 16:13 Discharge instructions given to patient, Instructed on discharge instructions, follow up and referral plans. medication usage, Demonstrated understanding of instructions, follow-up care, medications, Prescriptions given X 1. 16:14 Patient left the ED. ca1 Signatures: Dispatcher [employer] Simran Sherman RN RN Karl Bullock MD MD [facility] Cherry Dominguez sb2 Francie Walker RN RN ca1
--- NOTE | 2018-04-03 15:55 | EDPHYS ---
Physician Documentation [facility] Name: Luana Andre Age: 47 yrs Sex: Female : 1970 Arrival Date: 04/03/2018 Time: 14:03 Bed 25 Private MD: Marge Garcia ED Physician Karl Bullock HPI: 04/03 15:43 This 47 yrs old Female presents to ER via Ambulatory with complaints of Thigh kdr Pain - surgery on 02/20. 15:43 The patient presents with pain, that is chronic. The complaints affect the lateral kdr aspect of left thigh. Context: The problem was sustained at home, resulted from an unknown cause, the patient can fully bear weight, the patient is able to ambulate, Problem is a result from a previous injury: No. Onset: The symptoms/episode began/occurred gradually, 3 week(s) ago. Modifying factors: The symptoms are alleviated by nothing. the symptoms are aggravated by nothing. Associated signs and symptoms: The patient has no apparent associated signs or symptoms. Treatment prior to arrival includes: no previous treatment. Severity of symptoms: At their worst the symptoms were moderate, in the emergency department the symptoms are unchanged. The patient has not experienced similar symptoms in the past. Had gastric sleeve placed a short time ago - pain has developed since then. 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 - Social history:: Smoking status: Patient uses tobacco products, smokes one-half pack cigarettes per day. - Ebola Screening: : No symptoms or risks identified at this time. ROS: 15:43 Constitutional: Negative for fever, chills, and weight loss, Eyes: Negative for injury, kdr pain, redness, and discharge, Neck: Negative for injury, pain, and swelling, Cardiovascular: Negative for chest pain, palpitations, and edema, Respiratory: Negative for shortness of breath, cough, wheezing, and pleuritic chest pain, Abdomen/GI: Negative for abdominal pain, nausea, vomiting, diarrhea, and constipation, Back: Negative for injury and pain, : Negative for injury, bleeding, discharge, and swelling, MS/Extremity: Negative for injury and deformity, Skin: Negative for injury, rash, and discoloration - has subjective pain to the lateral aspect of the left thigh from hip to knee. Started as a much smaller area in the same general location Neuro: Negative for headache, weakness, numbness, tingling, and seizure activity. Psych: Negative for depression, anxiety, suicide ideation, homicidal ideation, and hallucinations, Allergy/Immunology: Negative for hives, rash, and allergies, Endocrine: Negative for neck swelling, polydipsia, polyuria, polyphagia, and marked weight changes, Hematologic/Lymphatic: Negative for swollen nodes, abnormal bleeding, and unusual bruising. Exam: 15:43 Constitutional: This is a well developed, well nourished patient who is awake, alert, kdr and in no acute distress. Head/Face: Normocephalic, atraumatic. Eyes: Pupils equal round and reactive to light, extra-ocular motions intact. Lids and lashes normal. Conjunctiva and sclera are non-icteric and not injected. Cornea within normal limits. Periorbital areas with no swelling, redness, or edema. Neck: Trachea midline, no thyromegaly or masses palpated, and no cervical lymphadenopathy. Supple, full range of motion without nuchal rigidity, or vertebral point tenderness. No Meningismus. Chest/axilla: Normal chest wall appearance and motion. Nontender with no deformity. No lesions are appreciated. Cardiovascular: Regular rate and rhythm with a normal S1 and S2. No gallops, murmurs, or rubs. Normal PMI, no JVD. No pulse deficits. Respiratory: Lungs have equal breath sounds bilaterally, clear to auscultation and percussion. No rales, rhonchi or wheezes noted. No increased work of breathing, no retractions or nasal flaring. Abdomen/GI: Soft, non-tender, with normal bowel sounds. No distension or tympany. No guarding or rebound. No evidence of tenderness throughout. Back: No spinal tenderness. No costovertebral tenderness. Full range of motion. Skin: Warm, dry with normal turgor. Normal color with no rashes, no lesions, and no evidence of cellulitis. MS/ Extremity: Pulses equal, no cyanosis. Neurovascular intact. Full, normal range of motion. Neuro: Awake and alert, GCS 15, oriented to person, place, time, and situation. Cranial nerves II-XII grossly intact. Motor strength 5/5 in all extremities. Sensory grossly intact. Cerebellar exam normal. Normal gait. Psych: Awake, alert, with orientation to person, place and time. Behavior, mood, and affect are within normal limits. 15:43 Musculoskeletal/extremity: Subjective pain to the left lateral thigh. No physical sign of an abnormality. Vital Signs: 14:29 BP 120 / 68; Pulse 79; Resp 18; Temp 97.5; Pulse Ox 98% ; Weight 83.91 kg; Height 5 ft. sv 3 in. (160.02 cm); Pain 7/10; 15:00 BP 122 / 71; Pulse 81; Resp 18; Pulse Ox 100% on R/A; ca1 15:50 BP 121 / 75; Pulse 78; Resp 18; Pulse Ox 99% on R/A; ca1 14:29 Body Mass Index 32.77 (83.91 kg, 160.02 cm) sv MDM: 15:43 Data reviewed: vital signs, nurses notes, radiologic studies. Counseling: I had a kdr detailed discussion with the patient and/or guardian regarding: the historical points, exam findings, and any diagnostic results supporting the discharge/admit diagnosis, radiology results, the need for outpatient follow up. 15:53 Patient medically screened. kdr 04/03 14:30 Order name: US Extremity Venous Unilateral Ltd sv Administered Medications: 16:01 Not Given (Physician Discretion): Neurontin 300 mg PO once ca1 16:03 Drug: neurontin 400 mg PO 1 caps Route: PO; ca1 16:05 Follow up: Response: Medication administered at discharge. ca1 Disposition: 04/03/18 15:53 Discharged to Home. Impression: Paresthesia of skin. - Condition is Stable. - Discharge Instructions: Paresthesia, Nhal-mo-Gsmw. - Prescriptions for Neurontin 300 mg Oral Capsule - take 1 capsule by ORAL route every 8 hours; 30 capsule. - Medication Reconciliation Form, Thank You Letter form. - Follow up: Marge Garcia MD; When: 2 - 3 days; Reason: If symptoms return, Further diagnostic work-up, Recheck today's complaints, Continuance of care, Re-evaluation by your physician. - Problem is an ongoing problem. - Symptoms are unchanged. Signatures: Dispatcher [employer] Simran Sherman RN RN Karl Bullock MD MD kdr Francie Walker RN RN ca1 Corrections: (The following items were deleted from the chart) 16:14 15:53 04/03/2018 15:53 Discharged to Home. Impression: Paresthesia of skin. Condition ca1 is Stable. Forms are Medication Reconciliation Form, Thank You Letter, Antibiotic Education, Prescription Opioid Use. Follow up: Marge Garcia; When: 2 - 3 days; Reason: If symptoms return, Further diagnostic work-up, Recheck today's complaints, Continuance of care, Re-evaluation by your physician. Problem is an ongoing problem. Symptoms are unchanged. kdr
[2018-04-03] MEDS ORDERED: GABAPENTIN 400 MG CAP ONE (16:08)
[2018-04-03 16:24] VITALS: TEMP 97.5
[2018-04-03 16:33] VITALS: BP 121/75; O2SAT 99
== END 2018-04-03 16:14 | disposition home or self-care (01) ==
LOC: ER 13:59
DX: R20.2 Paresthesia of skin (principal); F17.210 Nicotine dependence, cigarettes, uncomplicated; Z88.5 Allergy status to narcotic agent
CPT/HCPCS: 93971; 99284

== ENCOUNTER 2018-04-09 16:08 | Emergency (ER) | payer BC ==
--- OUTSIDE RECORDS SUMMARY | 2018-04-09 16:11 | XMS REPORT ---
[...] End Date Status Dosage Date Chantix [facility] 60558020588 1 MG po twice a Active 1 tab Continuing day Month Joshua Results No Known Results Summary Purpose eClinicalWorks Submission
--- OUTSIDE RECORDS SUMMARY | 2018-04-09 16:11 | XMS REPORT ---
[...] End Status Dosage System Date Flonase [facility] 40019062619 50 MCG/ACT Active 2 spray in Nasally Once a each day nostril Fish Oil [facility] 85469035564 1000 MG Orally Active 1 capsule Once a day Zetia [facility] 06679368984 10 MG Orally August 05, Active 1 tablet Once a day 2017 Singulair [facility] 54259995633 10 MG Orally Active 1 tablet in Once a day the evening Estradiol ND 52433633957 1 MG Orally Active 1 tablet Daily for Three Weeks, 1 Week off Chantix [facility] 19844126192 1 MG Active USE Continuing DIRECTED Month Joshua Chantix [facility] 60962330338 1 MG po twice a Active 1 tab Continuing day Month Joshua Results No Known Results Summary Purpose eClinicalWorks Submission
--- OUTSIDE RECORDS SUMMARY | 2018-04-09 16:11 | XMS REPORT ---
[...] End Status Dosage System Date Date Chantix [facility] 21730940897 1 MG po twice a Dec 08, Active 1 tab Continuing day 2017 Month Johsua Flonase [facility] 11676133854 50 MCG/ACT Active 2 spray in Nasally Once a each day nostril Singulair ND 10235453637 10 MG Orally Active 1 tablet Once a day in the evening Fish Oil ND 01764854338 1000 MG Orally Active 1 capsule Once a day Estradiol [facility] 59249146939 1 MG Orally Active 1 tablet Daily for Three Weeks, 1 Week off Results No Known Results Summary Purpose eClinicalWorks Submission
[2018-04-09 17:22] LABS: Urine Blood NEGATIVE (NEG); Urine Glucose NEGATIVE (NEG); Urine Protein NEGATIVE (NEG); Urine Specific Gravity 1.025 (1.005-1.030)
[2018-04-09] MEDS ORDERED: KETOROLAC 30 MG/ML INJ ONE (17:39)
[2018-04-09] MEDS ORDERED: CYCLOBENZAPRINE 10 MG TAB ONE (17:39)
--- NOTE | 2018-04-09 18:20 | EDPHYS ---
Physician Documentation [facility] Name: Luana Andre Age: 47 yrs Sex: Female : 1970 Arrival Date: 04/09/2018 Time: 16:10 Bed 13 Private MD: Marge Garcia ED Physician Karl Bullock HPI: 04/09 17:00 This 47 yrs old Female presents to ER via Ambulatory with complaints of Left pm1 Leg Pain. 17:00 The patient presents with pain. pm1 17:00 The complaints affect the lateral aspect of left thigh. Context: The problem was pm1 sustained at home, resulted from an unknown cause, the patient can fully bear weight, the patient is able to ambulate, Problem is a result from a previous injury: No. Associated signs and symptoms: Pertinent negatives calf tenderness, fever, numbness, swelling, tingling. Treatment prior to arrival includes: prescription medications, gabapentin. Severity of symptoms: in the emergency department the symptoms are unchanged. The patient has been recently seen at the [facility] Emergency Department, last week, for similar complaints an ultrasound was performed, was given a prescription for pain medications. Patient with surgery on 02/20 for gastric sleeve. Patient reports complaints of left leg pain. Seen here last week and had ultrasound of LE and R/O DVT. Patient discharged to home with gabapentin for possible sciatica. Patient reports no improvement with medication. 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 - Social history:: Smoking status: Patient uses tobacco products, smokes one-half pack cigarettes per day. - Ebola Screening: : Patient denies travel to an Ebola-affected area in the 21 days before illness onset. ROS: 17:00 Constitutional: Negative for fever, chills, and weight loss, Eyes: Negative for injury, pm1 pain, redness, and discharge, ENT: Negative for injury, pain, and discharge, Neck: Negative for injury, pain, and swelling, Cardiovascular: Negative for chest pain, palpitations, and edema, Respiratory: Negative for shortness of breath, cough, wheezing, and pleuritic chest pain, Abdomen/GI: Negative for abdominal pain, nausea, vomiting, diarrhea, and constipation, Back: Negative for injury and pain, : Negative for injury, bleeding, discharge, and swelling. 17:00 Skin: Negative for injury, rash, and discoloration, Neuro: Negative for headache, weakness, numbness, tingling, and seizure. 17:00 MS/extremity: Positive for pain, of the lateral aspect of left thigh, Negative for decreased range of motion, deformity. Exam: 17:00 Constitutional: This is a well developed, well nourished patient who is awake, alert, pm1 and in no acute distress. Head/Face: Normocephalic, atraumatic. Neck: Trachea midline, no thyromegaly or masses palpated, and no cervical lymphadenopathy. Supple, full range of motion without nuchal rigidity, or vertebral point tenderness. No Meningismus. Chest/axilla: Normal chest wall appearance and motion. Nontender with no deformity. No lesions are appreciated. Cardiovascular: Regular rate and rhythm with a normal S1 and S2. No gallops, murmurs, or rubs. Normal PMI, no JVD. No pulse deficits. Respiratory: Lungs have equal breath sounds bilaterally, clear to auscultation and percussion. No rales, rhonchi or wheezes noted. No increased work of breathing, no retractions or nasal flaring. Abdomen/GI: Soft, non-tender, with normal bowel sounds. No distension or tympany. No guarding or rebound. No evidence of tenderness throughout. Back: No spinal tenderness. No costovertebral tenderness. Full range of motion. Skin: Warm, dry with normal turgor. Normal color with no rashes, no lesions, and no evidence of cellulitis. 17:00 Musculoskeletal/extremity: Extremities: grossly normal except: noted in the distal lateral aspect of left thigh: muscle spasm, ROM: intact in all extremities, Circulation is intact in all extremities. Pulses: Sensation intact. DVT Exam: no swelling, negative Homans' sign noted on exam, no appreciated bluish discoloration, no erythema, no increased warmth. Vital Signs: 16:14 BP 90 / 61; Pulse 97; Resp 17; Temp 98.0(O); Pulse Ox 98% on R/A; Pain 7/10; tw2 17:12 BP 101 / 63; Pulse 89; Resp 18; Pulse Ox 100% on R/A; rb1 18:10 BP 103 / 64; Pulse 88; Resp 19; Pulse Ox 99% on R/A; Pain 5/10; rb1 16:14 "if touched" tw2 MDM: 16:36 Patient medically screened. pm1 18:19 Data reviewed: vital signs. Data interpreted: Pulse oximetry: on room air is 98 %. pm1 Interpretation: normal. Counseling: I had a detailed discussion with the patient and/or guardian regarding: the historical points, exam findings, and any diagnostic results supporting the discharge/admit diagnosis, the need for outpatient follow up, to return to the emergency department if symptoms worsen or persist or if there are any questions or concerns that arise at home. 04/09 16:52 Order name: Urine Dipstick--Ancillary (enter results); Complete Time: 17:24 em1 04/09 16:52 Order name: Urine --Ancillary (enter results); Complete Time: 17:24 em1 04/09 16:52 Order name: Urine Dipstick-Ancillary (obtain specimen); Complete Time: 16:53 em1 04/09 16:52 Order name: Urine Test (obtain specimen); Complete Time: 16:53 em1 Administered Medications: 17:34 Drug: Flexeril 10 mg Route: PO; rb1 18:10 Follow up: Response: No adverse reaction; Pain is decreased rb1 17:34 Drug: TORadol 60 mg Route: IM; Site: left gluteus; rb1 18:00 Follow up: Response: No adverse reaction; Pain is decreased rb1 Disposition: 04/10 07:00 Co-signature as Attending Physician, Karl Bullock MD I agree with the assessment and kdr plan of care. Disposition: 04/09/18 18:19 Discharged to Home. Impression: Other muscle spasm. - Condition is Stable. - Discharge Instructions: Muscle Cramps and Spasms, Heat Therapy. - Prescriptions for Cyclobenzaprine 10 mg Oral Tablet - take 1 tablet by ORAL route every 8 hours As needed; 30 tablet. Diclofenac Sodium 75 mg Oral Tablet Sustained Release - take 1 tablet by ORAL route 2 times per day; 30 tablet. - Medication Reconciliation Form, Thank You Letter, Antibiotic Education, Prescription Opioid Use form. - Follow up: Emergency Department; When: As needed; Reason: Worsening of condition. Follow up: Private Physician; When: 2 - 3 days; Reason: Recheck today's complaints, Continuance of care, Re-evaluation by your physician. - Problem is new. - Symptoms have improved. Signatures: Dispatcher [employer] EDMS Karl Bullock MD MD kdr Martinez, Eric em1 Itzel Temple, RN RN rb1 Triston Whatley NP SCRAP CARRIER pm1 Katey Lozano RN RN tw2 Corrections: (The following items were deleted from the chart) 04/09 18:44 18:19 04/09/2018 18:19 Discharged to Home. Impression: Other muscle spasm. Condition is rb1 Stable. Forms are Medication Reconciliation Form, Thank You Letter, Antibiotic Education, Prescription Opioid Use. Follow up: Emergency Department; When: As needed; Reason: Worsening of condition. Follow up: Private Physician; When: 2 - 3 days; Reason: Recheck today's complaints, Continuance of care, Re-evaluation by your physician. Problem is new. Symptoms have improved. pm1
--- NOTE | 2018-04-09 18:20 | ER ---
Nurse's Notes [facility] Name: Luana Andre Age: 47 yrs Sex: Female : 1970 Arrival Date: 04/09/2018 Time: 16:10 Bed 13 Private MD: Marge Garcia Diagnosis: Other muscle spasm Presentation: 04/09 16:12 Presenting complaint: Patient states: i came in last week ago with LEFT leg pain, i had tw2 surgery end of January a gastric bypass so they want to see if i had blood clots, i did not have blood clots, i got nerve medication it hasnt helped, i have a throbbing pain mostly on the outside of my LEFT thigh, some sore spots and some. Transition of care: patient was not received from another setting of care. Onset of symptoms was April 09, 2018. Risk Assessment: Do you want to hurt yourself or someone else? Patient reports no desire to harm self or others. Initial Sepsis Screen: Does the patient meet any 2 criteria? No. Patient's initial sepsis screen is negative. Does the patient have a suspected source of infection? No. Patient's initial sepsis screen is negative. Care prior to arrival: None. 16:12 Method Of Arrival: Ambulatory tw2 16:12 Acuity: ANA 3 tw2 Triage Assessment: 16:16 General: Appears in no apparent distress. Behavior is calm, cooperative, appropriate tw2 for age. Pain: Complains of pain in left leg. 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 - Social history:: Smoking status: Patient uses tobacco products, smokes one-half pack cigarettes per day. - Ebola Screening: : Patient denies travel to an Ebola-affected area in the 21 days before illness onset. Screenin:35 Abuse screen: Denies threats or abuse. Nutritional screening: No deficits noted. rb1 Tuberculosis screening: No symptoms or risk factors identified. Fall Risk None identified. Assessment: 16:35 General: Appears in no apparent distress. comfortable, Behavior is calm, cooperative. rb1 Pain: Complains of pain in lateral aspect of left thigh Pain currently is 4 out of 10 on a pain scale. Pain began x 1 week. Neuro: Level of Consciousness is awake, alert, obeys commands, Oriented to person, place, time, situation. Neuro: Reports numbness in lateral aspect of left thigh thigh feels bruised, but no visible bruising noted.. Cardiovascular: Capillary refill < 3 seconds is brisk in bilateral toes. Respiratory: Airway is patent Respiratory effort is even, unlabored, Respiratory pattern is regular, symmetrical. GI: No signs and/or symptoms were reported involving the gastrointestinal system. : No signs and/or symptoms were reported regarding the genitourinary system. Derm: Skin is pink, warm \\T\\ dry. Musculoskeletal: Range of motion: intact in all extremities. 17:30 Reassessment: Patient appears in no apparent distress at this time. No changes from rb1 previously documented assessment. 18:15 Reassessment: Patient appears in no apparent distress at this time. Patient and/or rb1 family updated on plan of care and expected duration. Pain level reassessed. Patient is alert, oriented x 3, equal unlabored respirations, skin warm/dry/pink. Vital Signs: 16:14 BP 90 / 61; Pulse 97; Resp 17; Temp 98.0(O); Pulse Ox 98% on R/A; Pain 7/10; tw2 17:12 BP 101 / 63; Pulse 89; Resp 18; Pulse Ox 100% on R/A; rb1 18:10 BP 103 / 64; Pulse 88; Resp 19; Pulse Ox 99% on R/A; Pain 5/10; rb1 16:14 "if touched" tw2 ED Course: 16:10 Patient arrived in ED. sb2 16:11 Marge Garcia MD is Private Physician. sb2 16:14 Triage completed. tw2 16:16 Arm band placed on. tw2 16:35 [facility] pm1 16:35 Karl Bullock MD is Attending Physician. pm1 16:44 Itzel Temple, DYANA is Primary Nurse. rb1 16:50 Patient has correct armband on for positive identification. Bed in low position. Call mh5 light in reach. Side rails up X 1. Warm blanket given. Pulse ox on. NIBP on. 16:50 Urine collected: clean catch specimen, cloudy. 5 18:25 No provider procedures requiring assistance completed. Patient did not have IV access rb1 during this emergency room visit. Administered Medications: 17:34 Drug: Flexeril 10 mg Route: PO; rb1 18:10 Follow up: Response: No adverse reaction; Pain is decreased rb1 17:34 Drug: TORadol 60 mg Route: IM; Site: left gluteus; rb1 18:00 Follow up: Response: No adverse reaction; Pain is decreased [facility] Outcome: 18:19 Discharge ordered by MD. pm1 18:25 Discharged to home ambulatory. rb1 18:25 Condition: stable 18:25 Discharge instructions given to patient, Instructed on discharge instructions, follow up and referral plans. medication usage, Demonstrated understanding of instructions, follow-up care, medications, Prescriptions given X 2. 18:25 Patient left the ED. rb1 Signatures: Itzel Temple RN RN rb1 Triston Whatley, [employer] pm1 Katey Lozano RN RN 2 Erica De La O 5 Cherry Dominguez 2 Corrections: (The following items were deleted from the chart) 19:16 18:44 Patient left the ED. rb1 rb1
[2018-04-09 20:40] VITALS: TEMP 98
[2018-04-09 20:43] VITALS: BP 103/64; O2SAT 99
== END 2018-04-09 18:44 | disposition home or self-care (01) ==
LOC: ER 16:08
DX: M62.838 Other muscle spasm (principal); F17.210 Nicotine dependence, cigarettes, uncomplicated; Z88.5 Allergy status to narcotic agent
CPT/HCPCS: 81003; 81025; 96372; 99284

== ENCOUNTER 2021-04-16 09:48 | Emergency (ER) | payer BC ==
--- OUTSIDE RECORDS SUMMARY | 2021-04-16 09:53 | XMS REPORT | Continuity of Care Document ---
:1970 Author Organization [facility] t Address [address] [place] [address] Care Team Providers Name Role Phone Pcp, Does Not Have A Primary Care Physician Zach Garcia Attending Clinician Unavailable FELIPE Attending Clinician Unavailable Nurse, Db Urgent Care Attending Clinician Unavailable Felipe NOLAN Attending Clinician Doctor Unassigned, Name Attending Clinician Unavailable Ezequiel TURPIN, T Attending Clinician Unavailable Only, Db Test Attending Clinician Unavailable Ebrahim RAMIRO Attending Clinician EBRAHIM Attending Clinician Unavailable ZULMA Attending Clinician Unavailable TARA Attending Clinician Unavailable ALAYNA Attending Clinician Unavailable Payers Payer Name Policy Type Policy Number Effective Date Expiration Date S malcom [facility] - [id number] 2012 00:00:00 OUT OF STATE Problems Condition Condition Condition Status Onset Resolution Last Treating Co mments Source Name Details Category Date Date Treatment Clinician Date History of History of Problem Resolve Univers gastroesop gastroesop d it y of hageal hageal [place] reflux reflux Physici (GERD) (GERD) ans Malabsorpt Malabsorpt Problem Active U nivers ion due to ion due to [place] of intoler[place], not e, not Physici elsewhere elsewhere ans classified classified History of History of Problem Resolve Univers malnutriti malnutriti d it y of on on [place] Physici ans Leg pain Leg pain Problem Active Unive rs ity of [place] Physici ans GERD GERD Problem Active Univers (gastroeso (gastroeso it y of phageal phageal [place] reflux reflux Physici disease) disease) ans Follow up Follow up Problem Active Uni vers ity of [place] Physici ans Abdominal Abdominal Problem Active Uni vers pain pain ity of [place] Physic ans Malnutriti Malnutriti Problem Active U nivers on on ity of [place] Physic ans Vitamin D Vitamin D Problem Active Uni vers deficiency deficiency it y of [place] Physici ans Allergies, Adverse Reactions, Alerts Allergy Allergy Status Severity Reaction(s) Onset Inactive Treating Comm ents Source Name Type Date Date Clinician CODEINE DRUG Active Unknown-Cmnt Uni vers INGREDI 2-21 ity of 00:00: [place] 00 Medical Branch ROBITUSS DRUG Active Unknown-Cmnt Un meri IN COUGH 2- ity of CALMERS 00:00: [place] 00 Medical Branch Codeine Propensi Active Unknown - Univ ers ty to See comments 2-21 ity of adverse 00:00: [place] reaction 00 Medical s Branch Robituss Propensi Active Unknown - Uni vers in Cough ty to See comments 2-21 it y of Cal[place] adverse 00:00: [place] reaction 00 Medical s Branch NO KNOWN Drug Active Univers ALLERGIE Class ity of S [facility] Social History Social Habit Start Date Stop Date Quantity Comments Source Exposure to Yes [facility] SARS-CoV-2 (event) Medica l Branch Tobacco use and 2021-04-16 2021-04-16 Never used [facility] exposure 00:00:00 00:00:00 [facility] Sex Ass[birth year] At [birth year] [facility] 00:00:00 00:00:00 [facility] Smoking Status Start Date Stop Date Source Unknown if ever smoked [facility] Never smoker [facility] Medications Ordered Filled Start Stop Current Ordering Indication Dosage Frequency Signature Comments Components Source Medication Medication Date Date Medication? Clinician (SIG) Name Name No known No Univers medications 2- ity of 09:24: [place] 52 Medical Branch No known No Univers medications - ity of 17:53: [place] 19 [facility] Branch No known No Univers medications - ity of 17:53: [place] 19 [facility] No known No Univers medications 2- ity of 17:53: [place] 19 [facility] Branch Pantoprazol Pantoprazol Yes INEZ 1 QD TAKE 1 Univers e Sodium 40 e Sodium 40 2-14 FELINSKI TABLET ity of MG Oral MG Oral 00:00: D.O. DAILY [place] Tablet Tablet 00 Physici Delayed Delayed ans Release Release Pantoprazol Pantoprazol Yes INEZ 1 QD TAKE 1 Univers e Sodium 40 e Sodium 40 7-05 FELINSKI TABLET ity of MG Oral MG Oral 00:00: D.O. DAILY. [place] Tablet Tablet Physici Delayed Delayed ans Release Release Gabapentin Gabapentin Yes INEZ Q0.3333D TAKE 1 Univers 300 MG Oral 300 MG Oral 2-12 FELINSKI CAPSULE 3 ity of Capsule Capsule 00:00: D.O. TIMES [place] 00 DAILY. Physici ans Pantoprazol Pantoprazol Yes INEZ 1 QD TAKE 1 Univers e Sodium 40 e Sodium 40 1-28 FELINSKI TABLET ity of MG Oral MG Oral 00:00: D.O. DAILY. [place] Tablet Tablet Physici Delayed Delayed ans Release Release Ketoconazol Ketoconazol 2017-02 Yes Na Garcia as [facility] Fluticasone Fluticasone Yes Na Garcia [address] [facility] Propionate Propionate EACH Luisa es - NOSTRIL Memoria ONCE A DAY l NASALLY [facility] Singulair Singulair Yes Na Garcia [address] [facility] Fish Oil Fish Oil Yes Na Garcia [address] [facility] Estradiol Estradiol Yes Na Garcia [address] [facility] Pantoprazol Pantoprazol Yes Na Garcia [address] [facility] e Sodium e Sodium [facility] Chantix Chantix 2018- No Na Garcia [address] Continuing Continuing 10-15 Lisa kes - Month Joshua Month Joshua 00:00 Gerber kayy :00 l [facility] Immunizations Ordered Filled Immunization Date Status Comments Sour e Immunization Name Name Tdap Tdap 2019-07-[address] [facility] Vital Signs Vital Name Observation Time Observation Value Comments Source Systolic blood 2021-04-16 15:22:00 100 mm[Hg] Univer sity of pressure [facility] Branch Diastolic blood 2021-04-16 15:22:00 69 mm[Hg] Unive rsity of pressure [facility] Branch Heart rate 2021-04-16 15:22:00 82 /min Universi ty of [facility] Body temperature 2021-04-16 15:22:00 36.78 [facility] Univ ersity of [facility] Branch Respiratory rate 2021-04-16 15:22:00 17 /min Univ ersity of [facility] Body height 2021-04-16 15:22:00 160 cm Universi ty of [facility] Body weight 2021-04-16 15:22:00 75.496 kg Universi ty of [facility] Branch BMI 2021-04-16 15:22:00 29.48 kg/m2 Universi ty of [facility] Oxygen saturation in 2021-04-16 15:22:00 99 /min University of Arterial blood by [facility] Pulse oximetry Branch Systolic blood 2019-04-09 09:32:00 99 mm[Hg] Univer sity of pressure [place] Physician s Diastolic blood 2019-04-09 09:32:00 60 mm[Hg] Unive rsity of pressure [place] Physician s Body height 2019-04-09 09:32:00 63 [in_us] Universi ty of [place] Physician s Weight 2019-04-09 09:32:00 158.9 [lb_av] Univers ity of [place] Physician s Body mass index 2019-04-09 09:32:00 28.15 kg/m2 Unive rsity of (BMI) [Ratio] [place] Physicia ns Body temperature 2019-04-09 09:32:00 97.9 [degF] Univ ersity of [place] Physician s Heart Rate 2019-04-09 09:32:00 70 /min Universi ty of [place] Physician s BP Systolic 2017-10-31 13:40:00 114 mm[Hg] Universi ty of [place] Physician s BP Diastolic 2017-10-31 13:40:00 67 mm[Hg] Universi ty of [place] Physician s Height 2017-10-31 13:40:00 63 [in_us] Universi ty of [place] Physician s Weight 2017-10-31 13:40:00 210.4 [lb_av] Univers ity of [place] Physician s Body Mass Index 2017-10-31 13:40:00 37.27 [facility]/m[facility] 2017-10-31 13:40:00 98.2 [degF] [facility] Physician s Heart Rate 2017-10-31 13:40:00 104 /min [facility] Physician s Procedures Procedure Date / Time Performing Clinician Source Performed CONSENT/REFUSAL FOR 2021-04-16 15:11:52 Doctor Unassigned, Unive [facility] [place] [facility] DIAGNOSIS AND TREATMENT [facility] ASSIGNMENT OF BENEFITS 2021-04-16 15:11:43 Doctor Unassigned, [facility] [place] [facility] COVID-19 (MOLECULAR 2021-03-28 23:53:00 [facility] TESTING Medical Branch NUCLEIC ACID AMPLIFICATION) LAB ONLY COVID 2021-03-28 23:53:00 Tristen [facility] INTERPRETATION Medical Branch [Q] QUESTASSURED 25-OH 2019-08-02 00:00:00 Unive [facility] [place] [facility] VIT D, (D2,D3), LC/MS/MS Physici ans [QL] CBC (INCLUDES 2019-08-02 00:00:00 [facility] DIFF/PLT) Physicians [QL] CMP W/EGFR 2019-08-02 00:00:00 [facility] Physicians [QL] FOLATE, SERUM 2019-08-02 00:00:00 [facility] Physicians [QL] HEMOGLOBIN A1c 2019-08-02 00:00:00 [facility] Physicians [QL] IRON AND TOTAL IRON 2019-08-02 00:00:00 Uni [facility] BINDING CAPACITY Physicians [QL] LIPID PANEL 2019-08-02 00:00:00 [facility] Physicians [QL] PTH, INTACT (WITHOUT 2019-08-02 00:[facility] [QL] TSH, 3RD GENERATION 2019-08-02 00:00:00 Uni [facility] Physicians [QL] VITAMIN A (RETINOL) 2019-08-02 00:00:00 Uni [facility] Physicians [QL] VITAMIN B1, WHOLE 2019-08-02 00:00:00 Unive [facility] [place] [facility] BLOOD Physicians [QL] VITAMIN B12 2019-08-02 00:00:00 [facility] Physicians [QL] VITAMIN E 2019-08-02 00:00:00 [place] [facility] (TOCOPHEROL) Physicians NM Gallbladder scan HIDA 2019-05-26 00:00:00 Uni [facility] with meds [id number] Physicians [LH] CBC (without 2019-04-14 00:00:00 [facility] differential) Physicians [QL] COMPREHENSIVE 2019-04-14 00:00:00 [facility] METABOLIC PANEL W/O eGFR Physici ans [QLH] FOLATE, SERUM 2019-04-14 00:00:00 [facility] Physicians [QLH] HEMOGLOBIN A1c 2019-04-14 00:00:00 Univers ity [facility] Physicians [QLH] IRON AND TOTAL IRON 2019-04-14 00:00:00 Un [facility] BINDING CAPACITY Physicians [QLH] LIPID PANEL 2019-04-14 00:00:00 [facility] Physicians [QLH] PTH, INTACT 2019-04-14 00:00:00 [facility] (WITHOUT CALCIUM) Physicians [QLH] TSH, 3RD GENERATION 2019-04-14 00:00:00 Un [facility] Physicians [QLH] VITAMIN A (RETINOL) 2019-04-14 00:00:00 Un [facility] Physicians [QLH] VITAMIN B1, WHOLE 2019-04-14 00:00:00 [facility] BLOOD Physicians [QLH] VITAMIN B12 2019-04-14 00:00:00 [facility] Physicians [QLH] VITAMIN D, 2019-04-14 00:00:00 [facility] 25-HYDROXY, LC/MS/MS Physicians [QLH] VITAMIN E 2019-04-14 00:00:00 [facility] (TOCOPHEROL) Physicians [L] CBC (without 2019-04-14 00:00:00 [facility] differential) Physicians [QL] FOLATE, SERUM 2019-04-14 00:00:00 [facility] Physicians [QL] HEMOGLOBIN A1c 2019-04-14 00:00:00 [facility] Physicians [QL] IRON AND TOTAL IRON 2019-04-14 00:00:00 Uni [facility] BINDING CAPACITY Physicians [QL] LIPID PANEL 2019-04-14 00:00:00 [facility] Physicians [QL] PTH, INTACT (WITHOUT 2019-04-14 00:00:00 Un [facility] CALCIUM) Physicians [QL] TSH, 3RD GENERATION 2019-04-14 00:00[facility]00 [facility] [[facility]] VITAMIN A (RETINOL) 2019-04-14 00:00:00 [facility] [QL] VITAMIN B1, WHOLE 2019-04-14 00:00:00 [facility] BLO[facility] [QL] VITAMIN B12 2019-04-14 00:00:00 [facility] Physicians [QL] VITAMIN D, 2019-04-14 00:00:00 [facility] 25-HYDROXY, LC/MS/MS Physicians [QL] VITAMIN E 2019-04-14 00:00:00 [facility] (TOCOPHEROL) Physicians US Abdomen RUQ [id number] 2019-04-09 00:00:00 [facility] GI Stomach UGI w/KUB air 2018-08-28 00:00:00 Uni [facility] cont and Esophagus Ba Physicians swallow [id number] [LH] CBC (without 2018-06-26 00:00:00 [facility] differential) Physicians [QL] COMPREHENSIVE 2018-06-26 00:00:00 [facility] METABOLIC PANEL W/O eGFR Physici ans [QLH] FOLATE, SERUM 2018-06-26 00:00:00 [facility] Physicians [QLH] HEMOGLOBIN A1c 2018-06-26 00:00:00 [facility] Physicians [QLH] IRON AND TOTAL IRON 2018-06-26 00:00:00 Un [facility] BINDING CAPACITY Physicians [QLH] LIPID PANEL 2018-06-26 00:00:00 [facility] Physicians [QLH] PTH, INTACT 2018-06-26 00:00:00 [facility] (WITHOUT CALCIUM) Physicians [QLH] TSH, 3RD GENERATION 2018-06-26 00:00:00 Un [facility] Physicians [QLH] VITAMIN A (RETINOL) 2018-06-26 00:00:00 [facility] [QL[facility]] VITAMIN B1, WHOLE 2018-06-26 00:00:00 [facility]LO[facility] [QLH] VITAMIN B12 2018-06-26 00:00:00 [facility] Physicians [QLH] VITAMIN D, 2018-06-26 00:00:00 [facility] 25-HYDROXY, LC/MS/MS Physicians [QLH] VITAMIN E 2018-06-26 00:00:00 [facility] (TOCOPHEROL) Physicians [QLH] Helicobacter pylori 2017-08-29 00:00:00 Un [facility] Breath Test Physicians [L] Vitamin D, 2017-07-22 00:00:00 [facility] 25-Hydroxy, Total - Physicians Esoterix [LH] CBC (without 2017-07-22 00:00:00 [facility] differential) Physicians [QL] COMPREHENSIVE 2017-07-22 00:00:00 [facility] METABOLIC PANEL W/O eGFR Physici ans [QLH] FOLATE, SERUM 2017-07-22 00:00:00 [facility] Physicians [QLH] HEMOGLOBIN A1c 2017-07-22 00:00:00 [facility] Physicians [QL] IRON, TOTAL 2017-07-22 00:00:00 [facility] Physicians [QL] LIPID PANEL 2017-07-22 00:00:00 [facility] Physicians [QL] PTH, INTACT 2017-07-22 00:00:00 [facility] (WITHOUT CALCIUM) Physicians [QL] TSH, 3RD GENERATION 2017-07-22 00:00:00 Un [facility] Physicians [QL] VITAMIN A (RETINOL) 2017-07-22 00:00:00 [facility] Physicians [QL] VITAMIN B1, WHOLE 2017-07-22 00:00:00 [facility] BLOOD Physicians [QL] VITAMIN B12 2017-07-22 00:00:00 [facility] Physicians [QL] VITAMIN E 2017-07-22 00:00:00 [facility] (TOCOPHEROL) Physicians Plan of Care Planned Activity Planned Date Details Comments Source Diagnostic Test 2019-08-02 [Q] QUESTASSURED 25-OH Un [facility] Pending 00:00:00 VIT D, (D2,D3), Physicians LC/MS/MS [code = [Q] QUESTASSURED 25-OH VIT D, (D2,D3), LC/MS/MS] Diagnostic Test 2019-08-02 [QL] CBC (INCLUDES [facility] Pending 00:00:00 DIFF/PLT) [code = [QL] Physi cians CBC (INCLUDES DIFF/PLT)] Diagnostic Test 2019-08-02 [QL] CMP W/EGFR [code [facility] 00:00[facility]00 = [QL] CMP W/EGFR] Physician s Diagnostic Test 2019-08-02 [QL] FOLATE, SERUM [facility] Pending 00:00:00 [code = [QL] FOLATE, Physici ans SERUM] Diagnostic Test 2019-08-02 [QL] HEMOGLOBIN A1c Unive [facility] Pending 00:00:00 [code = [QL] Physicians HEMOGLOBIN A1c] Diagnostic Test 2019-08-02 [QL] IRON AND TOTAL Unive [facility] Pending 00:00:00 IRON BINDING CAPACITY Physic ians [code = [QL] IRON AND TOTAL IRON BINDING CAPACITY] Diagnostic Test 2019-08-02 [QL] LIPID PANEL [code Un [facility] Pending 00:00:00 = [QL] LIPID PANEL] Physicia ns Diagnostic Test 2019-08-02 [QL] PTH, INTACT [facility] Pending 00:00:00 (WITHOUT CALCIUM) Physicians [code = [QL] PTH, INTACT (WITHOUT CALCIUM)] Diagnostic Test 2019-08-02 [QL] TSH, 3RD [facility] Pending 00:00:00 GENERATION [code = Physician s [QL] TSH, 3RD GENERATION] Diagnostic Test 2019-08-02 [QL] VITAMIN A [facility] Pending 00:00:00 (RETINOL) [code = [QL] Physi cians VITAMIN A (RETINOL)] Diagnostic Test 2019-08-02 [QL] VITAMIN B1, WHOLE Un [facility] Pending 00:00:00 BLOOD [code = [QL] Physician s VITAMIN B1, WHOLE BLOOD] Diagnostic Test 2019-08-02 [QL] VITAMIN B12 [code Un [facility] Pending 00:00:00 = [QL] VITAMIN B12] Physicia ns Diagnostic Test 2019-08-02 [QL] VITAMIN E [facility] Pending 00:00:00 (TOCOPHEROL) [code = Physici ans [QL] VITAMIN E (TOCOPHEROL)] Diagnostic Test 2019-04-14 [LH] CBC (without [facility] 00:00:00 differential) [code = Physic ians [LH] CBC (without differential)] Diagnostic Test 2019-04-14 [QL] COMPREHENSIVE [facility] Pending 00:00:00 METABOLIC PANEL W/O Physicia ns eGFR [code = [QL] COMPREHENSIVE METABOLIC PANEL W/O eGFR] Diagnostic Test 2019-04-14 [QLH] FOLATE, SERUM Unive [facility] Pending 00:00:00 [code = [QLH] FOLATE, Physic ians SERUM] Diagnostic Test 2019-04-14 [QLH] HEMOGLOBIN A1c Univ [facility] Pending 00:00:00 [code = [QLH] Physicians HEMOGLOBIN A1c] Diagnostic Test 2019-04-14 [QLH] IRON AND TOTAL Univ [facility] Pending 00:00:00 IRON BINDING CAPACITY Physic ians [code = [QLH] IRON AND TOTAL IRON BINDING CAPACITY] Diagnostic Test 2019-04-14 [QLH] LIPID PANEL [facility] Pending 00:00:00 [code = [QLH] LIPID Physicia ns PANEL] Diagnostic Test 2019-04-14 [QLH] PTH, INTACT [facility] Pending 00:00:00 (WITHOUT CALCIUM) Physicians [code = [QLH] PTH, INTACT (WITHOUT CALCIUM)] Diagnostic Test 2019-04-14 [QLH] TSH, [address] [place] [address] Pending 00:00:00 GENERATION [code = Physician s [QLH] TSH, 3RD GENERATION] Diagnostic Test 2019-04-14 [QLH] VITAMIN A [facility] Pending 00:00:00 (RETINOL) [code = Physicians [QLH] VITAMIN A (RETINOL)] Diagnostic Test 2019-04-14 [QLH] VITAMIN B1, [facility] Pending 00:00:00 WHOLE BLOOD [code = Physicia ns [QLH] VITAMIN B1, WHOLE BLOOD] Diagnostic Test 2019-04-14 [QLH] VITAMIN B12 [facility] Pending 00:00:00 [code = [QLH] VITAMIN Physic ians B12] Diagnostic Test 2019-04-14 [QLH] VITAMIN D, [facility] Pending 00:00:00 25-HYDROXY, LC/MS/MS Physici ans [code = [QLH] VITAMIN D, 25-HYDROXY, LC/MS/MS] Diagnostic Test 2019-04-14 [QLH] VITAMIN E [facility] Pending 00:00:00 (TOCOPHEROL) [code = Physici ans [QLH] VITAMIN E (TOCOPHEROL)] Encounters Start End Encounter Admission Attending Care Care Encounter Source Date/Time Date/Time Type Type Clinicians Facility Department ID 2021-03-21 Outpatient Garcia, Na STLMLC STLC [id number] 13:28:15 [id number] 2021-03-21 Outpatient Garcia, Na STLMLC STLMLC [id number] 13:27:43 [id number] [facility] 2021-03-21 Outpatient Garcia, Na STLMLC STLMLC [id number] 12:18:30 [id number] [facility] 2021-03-21 Outpatient Garcia, Na STLMLC STLMLC [id number] 11:39:28 [id number] [facility] 2021-03-21 Outpatient Garcia, Na STLMLC STLC [id number] 11:38:53 [id number] [facility] 2021-03-21 Outpatient Garcia, Na STLC STLC [id number] 11:18:32 [id number] [facility] 2021-04-16 2021-04-16 [facility] [id number] Univers 09:15:00 09:25:09 [facility] 2021-04-16 2021-04-16 Nurse Nurse, [facility] [id number] Univers 09:15:00 09:25:09 [id number] [id number] Zheng as NBA?BLEA [phone] [address] MEDICAL OFFICE BUILDING 2021-04-16 2021-04-16 Outpatient R [facility] [id number] Univers 09:15:00 09:15:00 [id number] ity [facility] 2021-04-16 2021-04-16 Orders Doctor HANNA [id number] Univers 00:00:00 00:00:00 Only Unassigned, GONZÁLEZ [id number] ity of [place] [id number] Zheng as [phone] [facility] 009 Branch 2021-03-29 2021-03-29 Letter HANNA Nieves [id number] Univers 00:00:00 00:00:00 (Out) Lida Ruffin GONZÁLEZ [id number] it y of [facility] [id number] Zheng as [id number] [facility] 019 Branch 2021-03-28 2021-03-28 Laboratory Only, Ang Db Test [facility] 1.2.8 40.114 [id number] Univers 17:30:00 17:45:02 Only [facility] [id number] ity of [place] [id number] Zheng as NBA?BLEA [phone] [address] MEDICAL OFFICE BUILDING 2021-03-28 2021-03-28 Outpatient R TRISTEN [facility] [id number] Univers 17:30:00 17:45:02 RANMARIA T ity [facility] 2021-03-28 2021-03-28 Outpatient R [facility] [id number] Univers 17:30:00 17:30:00 [id number] ity [facility] 2021-03-28 2021-03-28 Letter Doctor FERREIRA [id number] Univers 00:00:00 00:00:00 (Out) Unassigned, GONZÁLEZ [id number] ity of [place] [facility] [id number] Zheng as [phone] [facility] 044 Branch 2020-09-20 2020-09-20 Outpatient STLMLC [facility]LMLC [id number] [facility] 00[facility]:00 kes - [facility] l Outpati ent Clinics 2019-10-15 2019-10-15 [facility] [id number] 09:40:00 09:40:00 [facility] Medicine l Medicine Outpati ent Clinics 2019-09-29 2019-09-29 [facility] [id number] 04:03:00 04:03:[address] [facility] ent [employer] 2019-09-22 2019-09-22 [facility] [id number] 17:16:00 17:16:[address] [facility] [employer] 2019-07-30 2019-07-30 [facility] [id number] 10:40:00 10:40:[address] [facility] [employer] 2019-04-09 2019-04-09 Staci MAYA, TIA General [id number] Univers 09:15:00 09:15:00 t; INEZ, Surgery - Vivek D.O. [facility] Medical Physici D.O. [facility] 2019-03-05 2019-03-05 Staci MAYA, TIA UTP [id number] Univers 09:15:00 09:15:00 t; araceli WILEY D.O. [place] INEZ Physici D.O. [facility] 2018-11-27 2018-11-27 Staci MAYA, TIA UTP [id number] Univers 09:15:00 09:15:00 t; araceli WILEY D.O. [place] Sindi WILEY.O. [facility] 2018-11-13 2018-11-13 Outpatient [facility] ALEX [id number] [facility] 10:55:00 10:55:00 2018-11-13 2018-11-13 Staci MAYA, TIA UTP [id number] Univers 08:00:00 08:00:00 t; INEZaraceli D.O. [place] INEZ Physicjack Gallo.OLon ans 2018-08-28 2018-08-28 Staci MAYA, TIA Minimally [id number] Univers 09:15:00 09:15:00 t; INEZ, Invasive jajay barry MAYA D.O. [facility] Physici D.OLon ([facility]) ans 2018-06-26 2018-06-26 Staci MAYA, TIA [place] [id number] Univers 09:00:00 09:00:00 t; INEZ, Surgery araceli MAYA D.O. Specialty [facility] INEZ, Physici D.O. ans 2018-04-10 2018-04-10 Appointevelyn MAYA, [facility] General [id number] Univers 09:30:00 09:30:00 t; INEZ, Surgery araceli o Sabino Le.O. [place] INEZ, Physici D.O. ans 2018-03-06 2018-03-06 Staci MAYA, UTP UTP [id number] Univers 09:00:00 09:00:00 t; INEZaraceli D.O. [place] INEZ, Physici D.O. ans 2018-02-20 2018-02-20 Staci MAYA, UTP UTP [id number] Univers 08:00:00 08:00:00 t; INEZaraceli D.O. [place] INEZ, Physici D.O. ans 2018-02-06 2018-02-06 Staci MAYA, UTP UTP [id number] Univers 07:30:00 07:30:00 t; INEZaraceli D.O. [place] INEZ, Physici D.O. ans 2018-01-02 2018-01-02 Staci MAYA, UTP UTP [id number] Univers 09:00:00 09:00:00 t; INEZaraceli D.O. [place] INEZ, Physici D.O. ans 2017-11-28 2017-11-28 Staci MAYA, UTP UTP [id number] Univers 09:30:00 09:30:00 t; INEZaraceli D.O. [place] INEZ, Physici D.O. ans 2017-10-31 2017-10-31 AppointTIA Andersone [id number] Univers 13:30:00 13:30:00 t; ASHLEY PACHECO, Surgery ity of ASHLEY, FURNITURE INSTALLER Specialty [place] FURNITURE INSTALLER Physici ans 2017-10-10 2017-10-10 Appointevelyn [facility] UTP [id number] Univers 10:30:00 10:30:00 t; NASIR Saini, ity of [place], NASIR, Physi ci RD ans 2017-09-26 2017-09-26 Staci MAYA, [facility] [id number] Univers 10:00:00 10:00:00 t; araceli WILEY D.O. [place] INEZ Physicjack HolguinOLon ans 2017-09-04 2017-09-04 Outpatient Yann Pacekellyargelia [id number] [facility] [address] 12:58:00 12:58:00 t [facility] 2017-08-29 2017-08-29 Staci MAYA [facility] General [id number] Univers 10:00:00 10:00:00 t; INEZ, Surgery Sabino Moralez.O. [place] Sindi WILEYOLon ans 2017-08-05 2017-08-05 Outpatient Yann Yannt [id number] 09:30:00 09:30:00 [facility] 2017-08-01 2017-08-01 Staci MAYA [facility] [id number] Univers 10:30:00 10:30:00 t; araceli WILEY D.O. [place] INEZ Physicjack Gallo.O. ans 2017-07-22 2017-07-22 Appointevelyn MAYA, [facility] General [id number] Univers 10:00:00 10:00:00 t; INEZ, Surgery Sabino Moralez.O. [place] INEZ Physicjack D.O. ans 2017-06-11 2017-06-11 Outpatient Yann Yannt [id number] 08:30:00 08:30:00 [facility] Results Test Description Test Time Test Comments Results Result Sour e Comments NM Gallbladder 2019-06-26 NUCLEAR MEDICINE [facility] with 9 [place] [id number] 12:21:00 R10.9 - Physicians R10.9COMPARISON: Right upper quadrant ultrasound 04/16/2019TECHNIQUE: Following the intravenous administration of 5.3 mCi ofTechnetium-99m Choletec, dynamic images of the abdomen were obtained in theanterior projection for 60 minutes. Next, after intravenous administration of1.5 mcg of CCK, dynamic images were obtained of the abdomen for additional 30minutes. A region of interest was drawn around the gallbladder and ejectionfraction was calculated.FINDINGS:T here is normal extraction of radiotracer by the hepatic parenchyma with normalclearance. The intrahepatic biliary duct, common bile duct, gallbladder andsmall bowel are all visualized within first 60 minutes.Gallbladder ejection fraction is normal at 30minutes, measuring 55%. (Normal isgreater than 35%)During the CCK injection/meal, the patient experienced no symptoms.IMPRESSION: Normal HIDA scan and gallbladder ejection fraction.--Read by: Juan José Flynn MDDictated Date/time: 07/23/19 12:20Electronically Signed by: Juna José Flynn MD 07/23/2011:22FINAL REPORT GI Esophagus 2018-09-25 EXAM: Upper GI series [facility] barium swallow 3 air [place] [id number] 08:47:00 DX, Barium swallow Physic ians DXDATE: 10/16/2018 8:47 CDT.INDICATION: K21.9 Gastro-esophageal reflux disease without esophagitis.COMPARISO N: None available.TECHNIQUE: Upper GI and barium swallow were performed using double contrasttechnique orally.FLUOROSCOPY:Ti me: 2.7 min.Exposures: 2.FINDINGS:Preliminar y radiograph: Pain, curvilinear surgical material outlines theexpected level of the stomach, compatible with history of sleeve gastrectomy.Swallowin g: Normal. No penetration or aspiration.Esophagus: * Motility: Normal.* Anatomy: No filling defects, mucosal irregularities, obstructions orextrinsic compressions identified.Hiatal hernia: A small hiatal hernia spontaneously reduces during the exam(image 55).Gastroesophageal reflux: Esophageal reflux is mild in degree but at leastmoderate in extent, migrating is far superior as at least the arnol.Stomach: Unremarkable postoperative appearance.Duodenum: Normal.IMPRESSION:1. Status post sleeve gastrectomy.2. A small hiatal hernia spontaneously reduces during the exam.3. Esophageal reflux is mild in degree but at least moderate in extent.--Read by: Chelsea Almodovar MDDictated Date/time: 10/16/18 11:40Electronically Signed by: Chelsea Almodovar MD 10/17/1911:50FINAL REPORT GI Stomach UGI 2018-09-25 EXAM: Upper GI series [facility] of air contrast 3 air contrast w ANMOL figueroa (barium) with 08:47:00 DX, Barium swallow Kaminiy deniz KUB [id number] DXDATE: 10/16/2018 8:47 CDT.INDICATION: K21.9 Gastro-esophageal reflux disease without esophagitis.COMPARISO N: None available.TECHNIQUE: Upper GI and barium swallow were performed using double contrasttechnique orally.FLUOROSCOPY:Ti me: 2.7 min.Exposures: 2.FINDINGS:Preliminar y radiograph: Pain, curvilinear surgical material outlines theexpected level of the stomach, compatible with history of sleeve gastrectomy.Swallowin g: Normal. No penetration or aspiration.Esophagus: * Motility: Normal.* Anatomy: No filling defects, mucosal irregularities, obstructions orextrinsic compressions identified.Hiatal hernia: A small hiatal hernia spontaneously reduces during the exam(image 55).Gastroesophageal reflux: Esophageal reflux is mild in degree but at leastmoderate in extent, migrating is far superior as at least the arnol.Stomach: Unremarkable postoperative appearance.Duodenum: Normal.IMPRESSION:1. Status post sleeve gastrectomy.2. A small hiatal hernia spontaneously reduces during the exam.3. Esophageal reflux is mild in degree but at least moderate in extent.--Read by: Chelsea Almodovar MDDictated Date/time: 10/16/18 11:40Electronically Signed by: Chelsea Almodovar MD 10/17/1911:50FINAL REPORT [LH] CBC (without differential) 2018-06-26 09:44:01 Test Item Value Reference Range Interpretation Comme nts WBC (test code = 6690-2) 9.8 {K/CMM} 3.7-10.4 RBC (test code = 789-8) 4.72 {M/CMM} 4.20-5.40 Hgb (test code = 718-7) 14.7 g/dl 12.0-16.0 Hct (test code = 75070-7) 43.5 % 36.0-48.0 MCV (test code = 787-2) 92.1 fL 80.0-98.0 MCH; Above High Threshold (test code = 785-6) 31.1 pg 27.0-31. 0 MCHC (test code = 786-4) 33.8 g/dl 32.0-36.0 RDW (test code = 788-0) 13.6 % 11.5-14.5 Platelet (test code = 39028-0) 243 {K/CMM} 133-450 Mean Platelet Volume (test code = 99815-1) 10.0 fL 7.4-10.4 [facility]] HEMOGLOBIN [id number] 09:44:01 Test Item Value Reference Range Interpretation Comments Hemoglobin A1c; Above High Threshold 5.7 % <=5.6 (test code = 4548-4) [facility]] PTH, INTACT (WITHOUT CALCIUM)2018-06-26 09:44:01 Test Item Value Reference Range Interpretation Comments Parathyroid Hormone Intact (test 25.9 pg/ml 18.4-80.1 code = 2731-8) [facility]] CMP [id number] 09:44:01 Test Item Value Reference Range Interpretation Comments Sodium Level 143 {mEq/l} 135-145 (test code = 2951-2) Potassium Level 4.2 {mEq/l} 3.5-5.1 (test code = 2823-3) Chloride Level; 110 {mEq/l} 95-109 Above High Threshold (test code = 5-0) Carbon Dioxide 25 {mEq/l} 24-32 (test code = 2027-9) AGAP (test code = 12.2 {mEq/l} 10.0-20.0 32058-8) Glucose Lvl (test 79 mg/dl 70-99 Adult refe rence range code = 2345-7) values reflec t the clinical guidel inesof the [place] Diabet es Association. Creatinine Lvl 0.70 mg/dl 0.50-1.40 (test code = 2160-0) Blood Urea 13 mg/dl 7-22 Nitrogen (test code = 3094-0) BUN/Creatinine 19 6-25 Ratio (test code = 3097-3) Total Protein 6.9 g/dl 6.4-8.4 (test code = 2885-2) Albumin Lvl (test 3.8 g/dl 3.5-5.0 code = 1751-7) Globulin (test 3.1 g/dl 2.7-4.2 code = 00006-8) A/G Ratio (test 1.2 0.7-1.6 code = 1759-0) Calcium Level 9.2 mg/dl 8.5-10.5 Total (test code = 03156-9) ALT (test code = 28 u/l 0-65 1743-4) AST (test code = 15 u/l 0-37 11657-2) Alk Phos (test 94 u/l 39-136 code = 1783-0) Bili Total (test 0.4 mg/dl 0.2-1.3 code = 1975-2) eGFR (test code = 104 The eGFR i s calculated 30285-9) {ML/MIN/1.7} using the CKD-E PI formula. In mos t young, healthyindividu als the eGFR will be >9 0 mL/min/1.73m2. The eGFR declines with a ge. AneGFR of 60-89 may be normal in some population s, particularly th e elderly, forwhom the CKD -EPI formula has not been extensively teodora idated. Use of the eGFR isnot recommended in the following populations:Ind ividuals with unstable c reatinine concentrations, including patient s and those with seri ous co-morbid conditions.Patsy ents with extremes in mus lina mass or diet.The berta a above are obtained fr om the National Kidney Disease Education Progr am(NKDEP) which nate lilly recommends that when the eGFR is used in patientswith ex tremes of body mass index for purposes of maddy g dosing, the eGFR should be multiplied by t he estimated BMI. [facility]] IRON AND TOTAL IRON BINDING CAPACITY 2018-06-26 09:44:01 Test Item Value Reference Range Interpretation Comments Iron (test code = 2498-4) 105 ug/dL 30-160 % Satur Fe (test code = 2502-3) 31 % 12-57 TIBC (test code = 2500-7) 344 ug/dL 228-428 UIBC (test code = UIBC) 239 ug/dL 110-370 [facility]] LIPID [id number] 09:44:01 Test Item Value Reference Range Interpretation Comments Chol; Above High Threshold (test 226 mg/dl <=199 code = 2093-3) Trig; Above High Threshold (test 350 mg/dl <=149 code = 2571-8) HDL Cholesterol; Below Low 43 mg/dl >=61 Threshold (test code = 2085-9) LDL; Above High Threshold (test 113 mg/dl <=99 code = 12432-8) CHD Risk (test code = 02098-3) 5.26 3.90-5.80 VLDL (test code = VLDL) 70 [facility]] TSH, 3RD [id number] 09:44:01 Test Item Value Reference Range Interpretation Comments TSH (test code = 73269-2) 0.693 {uIU/ml} 0.360-3.740 [facility]] VITAMIN [id number] 09:44:01 Test Item Value Reference Range Interpretation Comments Vitamin B12 Level (test code = 288 pg/ml 254-1320 2132-9) [facility]] FOLATE, [id number] 09:44:01 Test Item Value Reference Range Interpretation Comments Folate Level (test code = 2284-8) 36.5 ng/ml >=3.0 [facility]] VITAMIN D, 25-HYDROXY, LC/[id number] 09:44:01 Test Item Value Reference Range Interpretation Comments Vitamin D, 25-OH, 43.9 ng/ml 30.0-100.0 Reference range is based Total (test code on recommen dations in the = Vitamin D, EndocrineSociet y Clinical 25-OH, Total) Practice Guide line (J Clin Endocrinol Nqccp4236;96:19 11-1930) [facility][] Vit [id number] 09:44:01 Test Item Value Reference Range Interpretation Comments Vitamin A 65.0 ug/dL 20.1-62.0 Reference inter vals for vitamin Level (test A determined fr om code = LabCorpinternal studies. Vitamin A Individuals wit h vitamin A less Level) than 20ug/dL ar e considered vitamin A defic ient and those withserum dorinda ntrations less than 10 ug/dL a re consideredsever naomie deficient.This test was developed and i ts performance characteristics determined by [facility]. It has not been cleared orappro candace by the Food and Drug Administration. Performed At: [facility] [id number] ra Stuart NOLAN Ph:[phone] [facility][H] Vitamin E [id number] 09:44:01 Test Item Value Reference Range Interpretation Comments Alpha-Tocoph 18.8 mg/L 7.0-25.1 This test was d eveloped and its servando (test performance code = characteristics determined by Alpha-Tocoph [facility]. It has not been cleared servando) orapproved by [facility] Food and Drug Administration. Gamma-Tocoph 1.7 mg/L 0.5-5.5 This test was d eveloped and its servando (test performance code = characteristics determined by Gamma-Tocoph [facility]. It has not been cleared servando) orapproved by [facility] Food and Drug Administration. Reference intervals for a lpha and gamma-tocophero ldetermined from National Health and Nutrition ExaminationSurv ey, 8591-0517. Individuals wit h alpha-tocophero l levelsless than 5.0 mg/L are co nsidered vitamin E deficient.Per formed At: [facility] [id number] ra Stuart NOLAN Ph:[phone] [facility]] VITAMIN B1, WHOLE [id number] 09:44:01 Test Item Value Reference Range Interpretation Comments Vitamin B1 153.5 66.5-200.0 This test was d eveloped and its Level (test nmol/L performance code = characteristics determined by Vitamin B1 [facility]. It has not been Level) cleared orappro candace by the Food and Drug Administration. Performed At: [facility] [id number] ra Stuart NOLAN Ph:[phone] [facility][H] [facility] [id number] 12:50:01 Test Item Value Reference Range Interpretation Comments [facility] (test COMMENT Test Orde red: 161608 code = [facility]) 25-Hydr oxyvitamin D LCMS D2+E818-Glrhnvq , Vitamin D 33 ng/mL ESRe ference Range:All Ages: Target levels 30 - 70994-Rzhfnbz, Vitamin D-2 <1.0 ng/mL ES25 -Hydroxy, Vitamin D-3 33 ng/mL ESPerformed At: BN [facility] [id number] [facility] [place], [place] [id number] k Timothy Mcmillan MD Ph:[phone] rformed At: ES [facility] Tbytvtwonirss[address] [place] [id number] tabitha Miller MD Ph:[phone] [facility][] CBC (without differential)2017-07-22 12:01:01 Test Item Value Reference Range Interpretation Comments WBC; Above High Threshold (test 11.0 {K/CMM} 3.7-10.4 code = 6690-2) RBC (test code = 789-8) 4.89 {M/CMM} 4.20-5.40 Hgb (test code = 718-7) 14.6 g/dl 12.0-16.0 Hct (test code = 49552-8) 43.2 % 36.0-48.0 MCV (test code = 787-2) 88.4 fL 80.0-98.0 MCH (test code = 785-6) 29.9 pg 27.0-31.0 MCHC (test code = 786-4) 33.8 g/dl 32.0-36.0 RDW (test code = 788-0) 13.7 % 11.5-14.5 Platelet (test code = 09630-8) 321 {K/CMM} 133-450 Mean Platelet Volume (test code 9.6 fL 7.4-10.4 = 20166-0) [facility]] PTH, INTACT (WITHOUT CALCIUM)2017-07-22 12:01:01 Test Item Value Reference Range Interpretation Comments Parathyroid Hormone Intact (test 37.7 pg/ml 18.4-80.1 code = 2731-8) [facility]] CMP [id number] 12:01:01 Test Item Value Reference Range Interpretation Comments Sodium Level 141 {mEq/l} 135-145 (test code = 2951-2) Potassium Level 4.3 {mEq/l} 3.5-5.1 (test code = 2823-3) Chloride Level 108 {mEq/l} 95-109 (test code = 5-0) Carbon Dioxide 24 {mEq/l} 24-32 (test code = 2027-9) AGAP (test code = 13.3 {mEq/l} 10.0-20.0 72644-4) Glucose Lvl; 100 mg/dl 70-99 Adult reference range Above High values reflect the Threshold (test clinical khalif delinesof the code = 2345-7) [place] Diab etes Association. Creatinine Lvl 0.60 mg/dl 0.50-1.40 (test code = 2160-0) Blood Urea 11 mg/dl 7-22 Nitrogen (test code = 3094-0) BUN/Creatinine 18 6-25 Ratio (test code = 3097-3) Total Protein 7.3 g/dl 6.4-8.4 (test code = 2885-2) Albumin Lvl (test 4.0 g/dl 3.5-5.0 code = 1751-7) Globulin (test 3.3 g/dl 2.7-4.2 code = 47471-9) A/G Ratio (test 1.2 0.7-1.6 code = 1759-0) Calcium Level 9.3 mg/dl 8.5-10.5 Total (test code = 92132-7) ALT; Above High 91 u/l 0-65 Threshold (test code = 1743-4) AST; Above High 54 u/l 0-37 Threshold (test code = 67229-4) Bili Total (test 0.4 mg/dl 0.2-1.3 code = 1974-) Alk Phos (test 98 u/l 39-136 code = 1783-0) eGFR (test code = 110 The eGFR i s calculated 58418-4) {ML/MIN/1.7} using the CKD-E PI formula. In mos t young, healthyindividu als the eGFR will be >9 0 mL/min/1.73m2. The eGFR declines with a ge. AneGFR of 60-89 may be normal in some population s, particularly th e elderly, forwhom the CKD -EPI formula has not been extensively teodora idated. Use of the eGFR isnot recommended in the following populations:Ind ividuals with unstable c reatinine concentrations, including patient s and those with seri ous co-morbid conditions.Patsy ents with extremes in mus lina mass or diet.The berta a above are obtained fr om the National Kidney Disease Education Progr am(NKDEP) which nate lilly recommends that when the eGFR is used in patientswith ex tremes of body mass index for purposes of maddy g dosing, the eGFR should be multiplied by t he estimated BMI. [facility]] IRON, [id number] 12:01:01 Test Item Value Reference Range Interpretation Comments Iron (test code = 2498-4) 66 ug/dL 30-160 [facility]] TSH, 3RD [id number] 12:01:01 Test Item Value Reference Range Interpretation Comments TSH (test code = 33777-5) 0.860 {uIU/ml} 0.360-3.740 [facility]] VITAMIN [id number] 12:01:01 Test Item Value Reference Range Interpretation Comments Vitamin B12 Level (test code = 304 pg/ml 254-1320 2132-9) [facility]] FOLATE, [id number] 12:01:01 Test Item Value Reference Range Interpretation Comments Folate Level (test code = 2284-8) 41.6 ng/ml >=3.0 [facility]] LIPID [id number] 12:01:01 Test Item Value Reference Range Interpretation Comments Chol; Above High 254 mg/dl <=199 Threshold (test code = 2093-3) Trig; Above High 478 mg/dl <=149 Threshold (test code = 2571-8) HDL Cholesterol; 40 mg/dl >=61 Below Low Threshold (test code = 2085-9) CHD Risk; Above 6.35 3.90-5.80 High Threshold (test code = 64409-6) LDL (test code = See Note <=99 [place] [address]-8) calculated due to very high triglyceri jorge luis (>400mg/dL). Re commend Direct LDL if c linically indicated. VLDL (test code = See Note VLDL - Cho lesterol level VLDL) cannot be accur ately calculated due to very hightriglycerid es (>400 mg/dL). [facility] HEMOGLOBIN [id number] 12:01:01 Test Item Value Reference Range Interpretation Comments Hemoglobin A1c; Above High Threshold 5.8 % <=5.6 (test code = 4548-4) [facility]] VITAMIN B1, WHOLE [id number] 12:01:01 Test Item Value Reference Range Interpretation Comments Vitamin B1 177.6 66.5-200.0 This test was d eveloped and its Level (test nmol/L performance code = characteristics determined by Vitamin B1 [facility]. It has not been Level) cleared orappro candace by the Food and Drug Administration. Performed At: [facility] [id number] marisol Mcmillan MD Ph:[phone] [facility][] Vit [id number] 12:01:01 Test Item Value Reference Range Interpretation Comments Vitamin A 43.9 ug/dL 33.1-100.0 Reference inter vals for vitamin Level (test A determined fr om code = NationalHealth and Nutrition Vitamin A Examination Alex vey, Level) .Indiv iduals with vitamin A less than 20 ug/dL areconsidered v itamin A deficient and t hose with serumconcentrat ions less than 10 ug/dL are co nsidered severelydeficie nt.This test was developed and i ts performance characteristics determined by [facility]. It has not been cleared orappro candace by the Food and Drug Administration. Performed At: [address] [id number] marisol Mcmillan MD Ph:[phone] [facility][H] Vitamin E [id number] 12:01:01 Test Item Value Reference Range Interpretation Comments Alpha-Tocoph 20.6 mg/L 7.0-25.1 servando (test code = Alpha-Tocoph servando) Gamma-Tocoph 2.8 mg/L 0.5-5.5 Reference inter vals for alpha servando (test and gamma-tocop heroldetermined code = from National ealth and Gamma-Tocoph Nutrition Exami nationSurvey, servando) . Sammi viduals with alpha-tocophero l levelsless than 0.5 mg/L are co nsidered vitamin E deficient.Thi s test was developed and i ts performance characteristics determined by [employer]. It has not been cleared orapproved by [facility] Food and Drug Administration. Performed At: [facility] [id number] [place], [place] [id number] marisol Mcmillan MD Ph:[phone] [facility]
[2021-04-16 10:40] LABS: Hematocrit 38.4 % (36.0-45.0); Lymphocytes % 31.5 % (15.3-44.8); RBC Red Blood Cell Count 4.29 M/uL (3.86-4.86)
[2021-04-16 10:45] LABS: Protime INR 0.9
[2021-04-16 11:03] LABS: ALT/SGPT 23 U/L (12-78); AST/SGOT 16 U/L (15-37); Albumin 3.7 g/dL (3.4-5.0); Alkaline Phosphatase 75 U/L (45-117); BUN Blood Urea Nitrogen 15 mg/dL (7-18); Bicarbonate 25 mmol/L (21-32); Bilirubin Direct 0.1 mg/dL (0-0.2); Bilirubin Total 0.4 mg/dL (0.2-1.0); Glucose Level 95 mg/dL (74-106); Magnesium 2.4 mg/dL (1.8-2.4); NT PRO-BNP 85 pg/mL (<125); Potassium 3.7 mmol/L (3.5-5.1); Protein, Total 7.1 g/dL (6.4-8.2); Sodium Level 140 mmol/L (136-145)
--- NOTE | 2021-04-16 11:13 | RAD REPORT ---
EXAM DESCRIPTION: RAD - Chest Single View - 04/16/2021 11:00 am CLINICAL HISTORY: chest tightness COMPARISON: Two view chest June 2012 TECHNIQUE: AP portable chest image was obtained 04/16/2021 11:00 am . FINDINGS: Lungs are clear. Heart and vasculature are normal. No measurable pleural effusion and no p neumothorax. No acute bony abnormality seen. No acute aortic findings suspected. IMPRESSION: No acute cardiopulmonary process.
--- NOTE | 2021-04-16 11:23 | RAD REPORT ---
EXAM DESCRIPTION: CT - Head Brain Wo Cont - 04/16/2021 11:14 am CLINICAL HISTORY: DIZZINESS COMPARISON: No comparisons TECHNIQUE: Axial 5 mm thick images of the head were obtained without IV contrast. All CT scans are performed using dose optimization technique as appropriate and may include automated exposure control or mA/KV adjustment according to patient size. FINDINGS: No intracranial hemorrhage, mass, edema or shift of mid-line structures. No acute infarcti on changes seen. No abnormal extra-axial fluid collections. Ventricles are normal. No cortical edema or sulcal effacement. Mastoid air cells and visualized portions of the paranasal sinuses are clear. No acute bony findings. IMPRESSION: Negative non-contrast CT head examination.
[2021-04-16 11:32] LABS: Urine Blood Negative (Negative); Urine Glucose Negative (Negative); Urine Protein Negative (Negative); Urine pH 7.5 (5.0-7.0)
--- NOTE | 2021-04-16 11:42 | EDPHYS ---
Physician Documentation [facility] Name: Luana Andre Age: 50 yrs Sex: Female : 1970 Arrival Date: 04/16/2021 Time: 09:51 Bed 25 Private MD: Marge Garcia ED Physician Russell Seaman HPI: 04/16 10:25 This 50 yrs old Female presents to ER via Ambulatory with complaints of Chest cp Tightness, Dizziness. 10:25 The patient or guardian reports chest pain that is located primarily in the anterior cp chest wall. 10:25 Onset: 1 week(s) ago. The pain does not radiate. Associated signs and symptoms: cp Pertinent positives: dizziness, shortness of breath, Pertinent negatives: abdominal pain, cough, lower extremity pain, lower extremity swelling, syncope, vomiting. The chest pain is described as sharp. Duration: The patient or guardian reports a single episode, that is still ongoing, and unchanged. Modifying factors: The symptoms are alleviated by nothing. the symptoms are aggravated by nothing. Historical: - Allergies: 10:00 Codeine (Vomiting); ph 10:00 Robitussin Cough \T\ Cold CF; ph - Home Meds: 10:00 Dexilant 60 mg oral CpDB 1 cap once daily [Active]; ph - PSHx: 10:00 ankle; hysterectomy; ph - Immunization history:: Client reports having NOT received the Covid vaccine. - Social history:: Smoking status: Patient reports the use of cigarette tobacco products, smokes one-half pack cigarettes per day. ROS: 10:25 Constitutional: Negative for body aches, chills, fever, poor PO intake. cp 10:25 Cardiovascular: Positive for chest tightness, Negative for edema, palpitations. cp 10:25 Respiratory: Positive for shortness of breath, Negative for cough, wheezing. 10:25 Neuro: Positive for dizziness, Negative for altered mental status, headache, syncope, weakness. Exam: 10:25 ECG was reviewed by the Attending Physician. cp 10:30 Constitutional: The patient appears in no acute distress, alert, awake, comfortable, cp non-diaphoretic, non-toxic, well developed, well nourished. 10:30 Head/Face: Normocephalic, atraumatic. cp 10:30 Eyes: Periorbital structures: appear normal, Pupils: equal, round, and reactive to light and accomodation, Extraocular movements: intact throughout, Conjunctiva: normal, no exudate, no injection, Sclera: no appreciated abnormality, Lids and lashes: appear normal, bilaterally. 10:30 ENT: External ear(s): are unremarkable, Nose: is normal, Mouth: Lips: moist, Oral mucosa: pink and intact, moist, Posterior pharynx: Airway: no evidence of obstruction, patent. 10:30 Neck: ROM/movement: is normal, is supple, without pain, no range of motions limitations. 10:30 Chest/axilla: Inspection: normal. 10:30 Cardiovascular: Rate: normal, Rhythm: regular, Edema: is not appreciated, JVD: is not appreciated. 10:30 Respiratory: the patient does not display signs of respiratory distress, Respirations: normal, no use of accessory muscles, no retractions, labored breathing, is not present, Breath sounds: are clear throughout, no decreased breath sounds, no stridor, no wheezing. 10:30 Abdomen/GI: Exam negative for discomfort, distension, guarding, Inspection: abdomen appears normal. 10:30 Back: pain, is absent, ROM is normal. 10:30 Neuro: Orientation: to person, place \T\ time. Mentation: is normal, Motor: moves all fours, strength is normal, Sensation: is normal. Vital Signs: 09:57 BP 113 / 76; Pulse 80; Resp 18; Temp 98.4(TE); Pulse Ox 100% on R/A; Weight 74.84 kg; ph Height 5 ft. 3 in. (160.02 cm); 09:57 Body Mass Index 29.23 (74.84 kg, 160.02 cm) ph MDM: 10:17 Patient medically screened. eric 11:00 Differential diagnosis: acute myocardial infarction, pericarditis, pleurisy, pneumonia, cp pneumothorax, stable angina, unstable angina, CVA. 11:42 Data reviewed: vital signs, nurses notes, lab test result(s), EKG, radiologic studies, cp CT scan, plain films. 11:42 Test interpretation: by ED physician or midlevel provider: ECG, plain radiologic cp studies. 11:42 Special discussion: Based on the patient's history, exam, and Dx evaluation, there is cp no indication for emergent intervention or inpatient Tx. It is understood by the patient/guardian that if the Sx's persist or worsen they need to return immediately for re-evaluation. 11:42 ED course: VSS. Low suspicion for cardiac cause of chest pain. Patient reports she was cp diagnosed with COVID-19 at the beginning of March 2021. Will discharge to home and recommend f/u with pcp. 04/16 10:22 Order name: Basic Metabolic Panel; Complete Time: 11:04 04/16 11:04 Interpretation: Normal except: CL 109. 04/16 10:22 Order name: CBC with Diff; Complete Time: 11:04 04/16 11:26 Interpretation: Reviewed. 04/16 10:22 Order name: LFT's; Complete Time: 11:04 04/16 10:22 Order name: Magnesium; Complete Time: 11:04 04/16 10:22 Order name: NT PRO-BNP; Complete Time: 11:04 04/16 10:22 Order name: PT-INR; Complete Time: 11:04 04/16 10:22 Order name: Troponin HS; Complete Time: 11:04 04/16 10:22 Order name: XRAY Chest (1 view); Complete Time: 11:25 04/16 11:26 Interpretation: Report reviewed. 04/16 10:22 Order name: Urine Microscopic Only 04/16 10:22 Order name: D-Dimer; Complete Time: 11:04 04/16 11:05 Order name: CT Head Brain wo Cont; Complete Time: 11:25 04/16 11:26 Interpretation: Report reviewed. 04/16 11:32 Order name: Urine Dipstick-Ancillary [facility] 04/16 11:51 Order name: Urine Culture [facility] 04/16 10:22 Order name: Cardiac monitoring; Complete Time: 10:25 04/16 10:22 Order name: EKG - Nurse/Tech; Complete Time: 10:25 04/16 10:22 Order name: IV Saline Lock; Complete Time: 10:25 04/16 10:22 Order name: Labs collected and sent; Complete Time: 10:25 04/16 10:22 Order name: O2 Per Protocol; Complete Time: 10:25 04/16 10:22 Order name: O2 Sat Monitoring; Complete Time: 10:25 04/16 10:22 Order name: Urine Dipstick-Ancillary (obtain specimen); Complete Time: 11:44 cp EC:25 Rate is 73 beats/min. Rhythm is regular. SD interval is normal. QRS interval is normal. cp QT interval is normal. T waves are Inverted in lead aVR. Interpreted by me. Reviewed by me. Administered Medications: No medications were administered Disposition Summary: 04/16/21 11:42 Discharge Ordered Location: Home cp Problem: new cp Symptoms: have improved cp Condition: Stable cp Diagnosis - Shortness of breath cp - Chest pain, unspecified cp - Dizziness and giddiness cp Followup: cp - With: Private Physician - When: 2 - 3 days - Reason: Recheck today's complaints Discharge Instructions: - Discharge Summary Sheet cp - Nonspecific Chest Pain, Adult cp - Dizziness cp - Shortness of Breath, Adult cp - Aspirin and Your Heart cp Forms: - Medication Reconciliation Form cp - Thank You Letter cp - Antibiotic Education cp - Prescription Opioid Use cp Prescriptions: - albuterol sulfate 90 mcg/actuation Inhalation HFA aerosol inhaler - inhale 1 puff by INHALATION route every 4-6 hours; 1 Inhaler; Refills: 0, cp Product Selection Permitted - Meclizine 25 mg Oral Tablet - take 1 tablet by ORAL route every 8 hours As needed; 30 tablet; Refills: 0, cp Product Selection Permitted Signatures: Dispatcher [employer] EDRussell Andrade MD MD cha Hall, Patricia, RN RN Russell Bernard, ADDISON PA Shiela Bello, RN RN vg1 Corrections: (The following items were deleted from the chart) 21:40 21:38 Special discussion: Based on the patient's history, exam, and Dx evaluation, cp there is no indication for emergent intervention or inpatient Tx. It is understood by the patient/guardian that if the Sx's persist or worsen they need to return immediately for re-evaluation. cp
--- NOTE | 2021-04-16 11:42 | ER ---
Nurse's Notes [facility] Name: Luana Andre Age: 50 yrs Sex: Female : 1970 Arrival Date: 04/16/2021 Time: 09:51 Bed 25 Private MD: Marge Garcia Diagnosis: Shortness of breath;Chest pain, unspecified;Dizziness and giddiness Presentation: 04/16 09:57 Chief complaint: Patient states: Mid-sternal chest tightness x approx 1 week, also ph reports "dizzy spells" when standing. States, " I had covid recently and thought it was just left over from that." Also reports L shoulder pain yesterday, denies N/V or SOB. Coronavirus screen: Vaccine status: Patient reports having had a previously documented Covid positive illness. Ebola Screen: No symptoms or risks identified at this time. Initial Sepsis Screen: Does the patient meet any 2 criteria? No. Patient's initial sepsis screen is negative. Does the patient have a suspected source of infection? No. Patient's initial sepsis screen is negative. Risk Assessment: Do you want to hurt yourself or someone else? Patient reports no desire to harm self or others. Onset of symptoms was April 16, 2021. 09:57 Method Of Arrival: Ambulatory 09:57 Acuity: ANA 3 ph Historical: - Allergies: 10:00 Codeine (Vomiting); ph 10:00 Robitussin Cough \\T\\ Cold CF; ph - Home Meds: 10:00 Dexilant 60 mg oral CpDB 1 cap once daily [Active]; ph - PSHx: 10:00 ankle; hysterectomy; ph - Immunization history:: Client reports having NOT received the Covid vaccine. - Social history:: Smoking status: Patient reports the use of cigarette tobacco products, smokes one-half pack cigarettes per day. Screenin:37 Abuse screen: Denies threats or abuse. Nutritional screening: No deficits noted. vg1 Tuberculosis screening: No symptoms or risk factors identified. Fall Risk No fall in past 12 months (0 pts). No secondary diagnosis (0 pts). IV access (20 points). Ambulatory Aid- None/Bed Rest/Nurse Assist (0 pts). Gait- Normal/Bed Rest/Wheelchair (0 pts) Mental Status- Oriented to own ability (0 pts). Total Spencer Fall Scale indicates No Risk (0-24 pts). Assessment: 10:05 General: Appears in no apparent distress. comfortable, Behavior is calm, cooperative. vg1 Pain: Denies pain. Complains of pain in chest Pain does not radiate. Pain currently is 0 out of 10 on a pain scale. Quality of pain is described as tightness Pain began x 2 weeks ago Is intermittent. Neuro: Level of Consciousness is awake, alert, obeys commands, Oriented to person, place, time, situation. Cardiovascular: Patient's skin is warm and dry. Rhythm is sinus rhythm. Respiratory: Reports cough that is dry, Airway is patent Respiratory effort is even, unlabored, Denies shortness of breath. GI: Abdomen is flat, non-distended, Patient currently denies nausea, vomiting. : No signs and/or symptoms were reported regarding the genitourinary system. EENT: No signs and/or symptoms were reported regarding the EENT system. Derm: Skin is intact, is healthy with good turgor. Musculoskeletal: Circulation, motion, and sensation intact. Vital Signs: 09:57 BP 113 / 76; Pulse 80; Resp 18; Temp 98.4(TE); Pulse Ox 100% on R/A; Weight 74.84 kg; ph Height 5 ft. 3 in. (160.02 cm); 09:57 Body Mass Index 29.23 (74.84 kg, 160.02 cm) ph ED Course: 09:51 Patient arrived in ED. mr 09:51 Marge Garcia MD is Private Physician. mr 10:00 Triage completed. ph 10:00 Arm band placed on Patient placed. ph 10:02 Shiela Vasques RN is Primary Nurse. vg1 10:15 Russell Burgess PA is PHCP. cp 10:15 Russell Seaman MD is Attending Physician. cp 10:15 Initial lab(s) drawn, by ok, sent to lab. Inserted saline lock: 20 gauge in right vg1 antecubital area, using aseptic technique. Blood collected. 10:15 Patient maintains SpO2 saturation greater than 95% on room air. vg1 10:37 Patient has correct armband on for positive identification. Placed in gown. Bed in low vg1 position. Call light in reach. Side rails up X 1. quality assurance monitor body on. Pulse ox on. NIBP on. 10:37 No provider procedures requiring assistance completed. vg1 11:00 XRAY Chest (1 view) In Process Unspecified. EDMS 11:15 CT Head Brain wo Cont In Process Unspecified. EDMS 12:05 IV discontinued, intact, bleeding controlled, No redness/swelling at site. Pressure vg1 dressing applied. Administered Medications: No medications were administered Outcome: 11:42 Discharge ordered by . ivet 12:05 Discharged to home ambulatory. vg1 12:05 Condition: good 12:05 Discharge instructions given to patient, Instructed on discharge instructions, follow up and referral plans. medication usage, Demonstrated understanding of instructions, follow-up care, medications, Prescriptions given X 2. 12:05 Patient left the ED. vg1 Signatures: Dispatcher [employer] BRITNIOK Lizeth Pacheco Patricia, RN RN Russell Bernard, Shiela Chavira cp, RN RN vg1
[2021-04-16 11:50] LABS: Urine Bacteria <20 /HPF (<20); Urine Mucus 1+ /HPF (NONE SEEN); Urine RBC <5 /HPF (NONE SEEN)
[2021-04-16 12:43] VITALS: BP 113/76; TEMP 98.4; O2SAT 100
--- NOTE | 2021-04-17 16:11 | EKG ---
Test Date: 2021-04-16 Test Time: 10:19:14 Agent Telegrapher: MYKEL MEASUREMENT RESULTS: Intervals: Rate: 73 IA: 130 QRSD: 82 QT: 374 QTc: 412 [place]: P: 58 IA: 130 QRS: 86 T: 63 INTERPRETIVE STATEMENTS: Normal sinus rhythm with sinus arrhythmia Normal ECG No previous ECG available for comparison Electronically Signed On 04-17-21 16:10:44 [employer] by Sergio Yeboah
== END 2021-04-16 12:05 | disposition home or self-care (01) ==
LOC: ER 09:48
DX: R07.9 Chest pain, unspecified (principal); R42 Dizziness and giddiness; R06.02 Shortness of breath; F17.210 Nicotine dependence, cigarettes, uncomplicated; Z88.5 Allergy status to narcotic agent; Z88.8 Allergy status to other drugs, medicaments and biological substances
CPT/HCPCS: 36415; 70450; 71045; 80048; 80076; 81003; 81015; 83735; 83880; 84484; 85025; 85379; 85610; 87086; 87088; 93005; 99285

== ENCOUNTER 2022-11-28 13:32 | Emergency (ER) | payer BC ==
--- OUTSIDE RECORDS SUMMARY | 2022-11-28 13:37 | XMS REPORT | Continuity of Care Document ---
:1970 Author Organization [facility] Address [address] [facility] [address] [place] [address] Care Team Providers Name Role Phone PCP, PATIENT DOES NOT HAVE A Primary Care Physician Unavaila Marge Mendoza Attending Clinician Unavailable Nitin Berrios Attending Clinician Unknown, Attending Attending Clinician Unavailable NITIN RAMON Attending Clinician Unavailable RICHARDSON ROBLEDO III Attending Clinician Unavailable JHON WANG Attending Clinician Unavailable Nurse, [facility] Attending Clinician Unavailable Jhon Wang MD Attending Clinician Doctor Unassigned, [place] Attending Clinician Unavailable Lida Nieves RN Attending Clinician Unavailable Only, [facility] Test Attending Clinician Unavailable INEZ MAYA D.O. Attending Clinician Unavailable ASHLEY PACHECO APRN Attending Clinician Unavailable NASIR CATALAN RD Attending Clinician Unavailable Payers Payer Name Policy Type Policy Number Effective Date Expiration Date S malcom Blue Cross 6 [id number] [facility] Blue [facility] Problems Condition Condition Condition Status Onset Resolution Last Treating Co mments Source Name Details Category Date Date Treatment Clinician Date Obesity Obesity Problem Active Common [facility] Screening Encounter Problem Active Com mon for for Spirit malignant screening - CH I neoplasm mammogram St of breast for [facility] malignant Medical neoplasm Center of breast Polycystic Polycystic Problem Active C ommon ovarian ovarian Spirit syndrome syndrome - [facility] Depression Depression Problem Active C ommon [facility] [id number] Obesity Problem Active Commo n (BMI [facility] 35.0-39.9 - [facility] without [facility] y) Medical Center Hypertrigl Hypertrigl Problem Active C ommon yceridemia yceridemia reji [facility] Vitamin D Vitamin D Problem Active Com mon deficiency deficiency Sp reji disease - [facility] Fatty Fatty Problem Active Common liver liver [facility] Nicotine Nicotine Problem Active Commo n dependence dependence Sp reji [facility] Liver Abnormal Problem Active Common function LFTs [facility] tests - [facility] abnormal [facility] [id number] Pain in Problem Active Commo n right Spirit ankle and - [facility] joints of right foot [facility] [id number] Gastroesop Problem Active Co mmon hageal Spirit reflux - [facility] disease, esophagiti [facility] s presence Medica l not Center specified [id number] Effusion Problem Active Comm on of right Spirit ankle - [facility] Influenza Influenza Problem Active Com mon vaccinatio vaccinatio Sp [facility] n n - [facility] administer St ed at [facility] current Medical visit Center Adult Adult Problem Active Common health general Spirit examinatio medical - [facility] n exam [facility] [id number] Fungal Problem Active Common scalp [facility] infection [facility] [id number] Seasonal Problem Active Comm on allergies [facility] [id number] Personal Problem Active Comm on history of Spirit colonic - [facility] polyps [facility] History of History of Problem Resolve UT gastroesop gastroesop d Ph ysici hageal hageal ans reflux reflux (GERD) (GERD) Malabsorpt Malabsorpt Problem Active U T ion due to ion due to Ph ysici intoleranc intoleranc an s e, not e, not elsewhere elsewhere classified classified History of History of Problem Resolve UT malnutriti malnutriti d Ph ysici on on ans Leg pain Leg pain Problem Active [facility] Phys[facility] ans GERD GERD Problem Active UT (gastroeso (gastroeso Ph ysici phageal phageal ans reflux reflux disease) disease) Follow up Follow up Problem Active [facility] Phys[facility] ans Abdominal Abdominal Problem Active UT pain pain Physici ans Malnutriti Malnutriti Problem Active U T on on Physici ans Vitamin D Vitamin D Problem Active UT deficiency deficiency Ph ysici ans No known No known Disease Unive rs active active ity of problems problems [facility] Allergies, Adverse Reactions, Alerts Allergy Allergy Status Severity Reaction(s) Onset Inactive Treating Comm ents Source Name Type Date Date Clinician CODEINE DRUG Active Unknown-Cmnt Uni vers INGREDI 2-21 ity of 00:00: [place] 00 Medical Branch ROBITUSS DRUG Active Unknown-Cmnt 0 Un meri IN COUGH - ity of CALMERS 00:00: [place] 00 Medical Branch Codeine Propensi Active Unknown - Univ ers ty to See comments 2- ity of adverse 00:00: [place] reaction 00 Medical s Branch Robituss Propensi Active Unknown - Uni vers in Cough ty to See comments 2-21 it y of [place] adverse 00:00: [place] reaction 00 Medical s Branch NO KNOWN Drug Active Univers ALLERGIE Class ity of S [facility] Social History Social Habit Start Date Stop Date Quantity Comments Source Sex Assigned At Common Sp reji - [facility] History of tobacco Cigarette Smoker University of use [facility] Exposure to 2022-01-20 2022-01-30 Not sure University SARS-CoV-2 (event) 00:00:00 16:45:00 [facility] Tobacco use and 2022-01-30 2022-01-30 User of Universit y of exposure 00:00:00 00:00:[address] [facility] tobacco [place] Cigarettes smoked 2022-01-30 2022-01-30 Univers ity of current (pack per 00:00:00 00:00:00 ) - Reported Branch Cigarette 2022-01-30 2022-01-30 University of pack-years 00:00:00 00:00:00 [facility] Alcohol intake 2022-01-30 2022-01-30 Lifetime University of 00:00:00 00:00:[address] non-drinker [facility] (finding) Branch Tobacco Comment 2022-01-30 2022-01-30 Vape Universit y of 00:00:00 00:00:00 [facility] Smoking Status Start Date Stop Date Source Unknown if ever smoked Universit y of [facility] Smokes tobacco daily 2022-01-30 00:00:00 Univers ity of [facility] Never smoker [facility] [place] [facility] Medications Ordered Filled Start Stop Current Ordering Indication Dosage Frequency Signature Comments Components Source Medication Medication Date Date Medication? Clinician (SIG) Name Name Dexlansopra 2021-02 Yes 1{capsu Take 1 U nivers zole 60 mg 04-02 le} capsule by ity of capsule 16:51: mouth in [place] 39 the Medical morning. Branch fluocinolon 2021-02 Yes [id number] Apply to Univers e 04-02 area(s) 3 ity of (DERMA-SMOO 00:00: (three) Zheng as THE/FS BODY 00 times Medical OIL) 0.01 % daily. Branch body oil predniSONE 2021-02- No [id number] 40mg Take 2 Univers 20 mg 04-02 tablets by ity of tablet 00:00: 05:59 mouth in [place] 00 :00 the Medical morning Branch for 5 days. Ketoconazol 2021-02- No [id number] Apply to Univers e 1 % 04-02 area(s) 2 ity of shampoo 00:00: 05:59 (two) [place] 00 :00 times Medical daily for Branch 5 days. nitrofurant Yes [id number] 100mg Take 1 Univers oin 100 mg 3-02 capsule by ity of capsule 00:00: mouth 2 [place] 00 (two) Medical times Branch daily. phenazopyri Yes [id number] 200mg Take 1 Univers dine 3-02 tablet by ity of (PYRIDIUM) 00:00[place] 200 [place] 00 (three) Medical tablet times Branch daily after meals. No known No Univers medications 2-21 ity of 09:24: [address] No known No Univers medications 2- ity of 17:53: [address] No known No Univers medications 2- ity of 17:53: [address] No known No Univers medications 2- ity of 17:53: [address] Pantoprazol Pantoprazol Yes INEZ 1 QD TAKE 1 UT e Sodium 40 e Sodium 40 2-14 FELINSKI TABLET Physici MG Oral MG Oral 00:00: D.O. DAILY ans Tablet Tablet 00 Delayed Delayed Release Release Pantoprazol Pantoprazol 2019-0 Yes INEZ 1 QD TAKE 1 UT e Sodium 40 e Sodium 40 7-05 FELINSKI TABLET Physici MG Oral MG Oral 00:00: D.O. DAILY. ans Tablet Tablet 00 Delayed Delayed Release Release Gabapentin Gabapentin 2018- Yes INEZ Q0.3333D TAKE 1 UT 300 MG Oral 300 MG Oral 2-12 FELINSKI CAPSULE 3 Physici Capsule Capsule 00:00: D.O. TIMES ans 00 DAILY. Pantoprazol Pantoprazol 2018- Yes INEZ 1 QD TAKE 1 UT e Sodium 40 e Sodium 40 1-28 FELINSKI TABLET Physici MG Oral MG Oral 00:00: D.O. DAILY. ans Tablet Tablet 00 Delayed Delayed Release Release Ketoconazol Ketoconazol 2017-02 Yes Na Garcia as Common e e 02-25 directed Spirit 00:00: [facility] Ketoconazol Ketoconazol 2017-02 No Ketoconazo Common e 2 % e 2 % 02-25 le 2 % Spirit 00:00: [facility] Ketoconazol Ketoconazol 2017-02 No Ketoconazo e 2 % e 2 % 02-25 le 2 % 00:00: 00 Ketoconazol Ketoconazol 2017-02 No Ketoconazo e 2 % e 2 % 02-25 le 2 % 00:00: 00 Fluticasone Fluticasone Yes Na Garcia 2 SPRAY IN Common Propionate Propionate EACH Spi rit NOSTRIL - CHI ONCE A DAY [address] Singulair Singulair Yes Na Garcia 1 tablet Common in the [facility] evening [facility] Fish Oil Fish Oil Yes Na Garcia 1 capsule Common [facility] Estradiol Estradiol Yes Na Garcia 1 tablet Common [facility] Pantoprazol Pantoprazol Yes Na Garcia 1 tablet Common e Sodium e Sodium [facility] Chantix Chantix No BID Chantix Common Continuing Continuing Continuing [facility] Month Joshua 1 Month Joshua 1 Month Joshua - CHI MG MG 1 MG [facility] Fish Oil Fish Oil No 1{capsu QD Fish Oil Common 1000 MG 1000 MG le} 1000 MG [facility] Fluticasone Fluticasone No Fluticason Common Propionate Propionate e Spi rit 50 MCG/ACT 50 MCG/ACT Propionate - CHI 50 MCG/ACT [facility] Flonase 50 Flonase 50 No 2{spray QD Flonase 50 Common MCG/ACT MCG/ACT _in_eac MCG/ACT Spi rit h_nostr - CHI il} [facility] Estradiol 1 Estradiol 1 No 1{table Estradiol Common MG MG t} 1 MG Spirit - CHI [facility] Chantix Chantix No Chantix Common Continuing Continuing Continuing Spirit Month Joshua 1 Month Joshua 1 Month Joshua - CHI MG MG 1 MG [facility] Singulair Singulair No 1{table QD Singulair Common 10 MG 10 MG t_in_th 10 MG Spirit e_eveni - CHI ng} [facility] Pantoprazol Pantoprazol No 1{table QD Pantoprazo Common e Sodium 40 e Sodium 40 t} le Sodium Spirit MG MG 40 MG - CHI [facility] Fluticasone Fluticasone No Fluticason Propionate Propionate e 50 MCG/ACT 50 MCG/ACT Propionate 50 MCG/ACT Chantix Chantix No Chantix Continuing Continuing Continuing Month Joshua 1 Month Joshua 1 Month Joshua MG MG 1 MG Pantoprazol Pantoprazol No 1{table QD Pantoprazo e Sodium 40 e Sodium 40 t} le Sodium MG MG 40 MG Fish Oil Fish Oil No 1{capsu QD Fish Oil 1000 MG 1000 MG le} 1000 MG Chantix Chantix No BID Chantix Continuing Continuing Continuing Month Joshua 1 Month Joshua 1 Month Joshua MG MG 1 MG Flonase 50 Flonase 50 No 2{spray QD Flonase 50 MCG/ACT MCG/ACT _in_eac MCG/ACT h_nostr il} Singulair Singulair No 1{table QD Singulair 10 MG 10 MG t_in_th 10 MG e_eveni ng} Estradiol 1 Estradiol 1 No 1{table Estradiol MG MG t} 1 MG Fluticasone Fluticasone No Fluticason Propionate Propionate e 50 MCG/ACT 50 MCG/ACT Propionate 50 MCG/ACT Chantix Chantix No Chantix Continuing Continuing Continuing Month Joshua 1 Month Joshua 1 Month Joshua MG MG 1 MG Pantoprazol Pantoprazol No 1{table QD Pantoprazo e Sodium 40 e Sodium 40 t} le Sodium MG MG 40 MG Fish Oil Fish Oil No 1{capsu QD Fish Oil 1000 MG 1000 MG le} 1000 MG Chantix Chantix No BID Chantix Continuing Continuing Continuing Month Joshua 1 Month Joshua 1 Month Joshua MG MG 1 MG Flonase 50 Flonase 50 No 2{spray QD Flonase 50 MCG/ACT MCG/ACT _in_eac MCG/ACT h_nostr il} Singulair Singulair No 1{table QD Singulair 10 MG 10 MG t_in_th 10 MG e_eveni ng} Estradiol 1 Estradiol 1 No 1{table Estradiol MG MG t} 1 MG Chantix Chantix 2018- No Na Garcia 1 tab Comm on Continuing Continuing -15 Sp reji Month Joshua Month Joshua 00:00 - CH I :00 [facility] Vital Signs Vital Name Observation Time Observation Value Comments Source Systolic blood 2022-01-30 22:50:00 118 mm[Hg] Univer sity [facility] Diastolic blood 2022-01-30 22:50:00 78 mm[Hg] Unive [facility] Heart rate 2022-01-30 22:50:00 85 /min [facility] Body temperature 2022-01-30 22:50:00 37 [facility] Respiratory rate 2022-01-30 22:50:00 16 /min [facility] Body height 2022-01-30 22:50:00 160 cm [facility] Body weight 2022-01-30 22:50:00 76.658 kg [facility] BMI 2022-01-30 22:50:00 29.94 kg/m2 [facility] Oxygen saturation in 2022-01-30 22:50:00 98 /min [facility] Arterial blood by [facility] Pulse oximetry Branch height 2021-04-18 08:40:00 64 [in_i] [facility] weight 2021-04-18 08:40:00 165 [lb_av] [facility] temperature 2021-04-18 08:40:00 98 [degF] [facility] bmi 2021-04-18 08:40:00 28.32 kg/m2 [facility] Systolic blood 2021-04-16 15:22:00 100 mm[Hg] Univer sity of pressure [facility] Diastolic blood 2021-04-16 15:22:00 69 mm[Hg] Unive rsity of pressure [facility] Heart rate 2021-04-16 15:22:00 82 /min Universi ty [facility] Body temperature 2021-04-16 15:22:00 36.78 [facility] Univ ersity of [facility] Respiratory rate 2021-04-16 15:22:00 17 /min [facility] Body height 2021-04-16 15:22:00 160 cm Universi ty [facility] Body weight 2021-04-16 15:22:00 75.496 kg Universi [facility] BMI 2021-04-16 15:22:00 29.48 kg/m2 [facility] Oxygen saturation in 2021-04-16 15:22:00 99 /min [facility] Arterial blood by [facility] Pulse oximetry Branch Systolic blood 2019-04-09 09:32:00 99 mm[Hg] [facility] pressure Diastolic blood 2019-04-09 09:32:00 60 mm[Hg] [facility] pressure Body height 2019-04-09 09:32:00 63 [in_us] [facility] Weight 2019-04-09 09:32:00 158.9 [lb_av] [facility] Body mass index 2019-04-09 09:32:00 28.15 kg/m2 [facility] (BMI) [Ratio] Body temperature 2019-04-09 09:32:00 97.9 [degF] [facility] Heart Rate 2019-04-09 09:32:00 70 /min [facility] BP Systolic 2017-10-31 13:40:00 114 mm[Hg] [facility] BP Diastolic 2017-10-31 13:40:00 67 mm[Hg] [facility] Height 2017-10-31 13:40:00 63 [in_us] [facility] Weight 2017-10-31 13:40:00 210.4 [lb_av] [facility] Body Mass Index 2017-10-31 13:40:00 37.27 kg/m2 [facility] Calculated Temperature 2017-10-31 13:40:00 98.2 [degF] [facility] Heart Rate 2017-10-31 13:40:00 104 /min [facility] Procedures Procedure Date / Time Performing Clinician Source Performed CONSENT/REFUSAL FOR 2021-04-16 15:11:52 Doctor Unassigned, Unive [facility] DIAGNOSIS AND TREATMENT [place] [facility] ASSIGNMENT OF BENEFITS 2021-04-16 15:11:43 Doctor Unassigned, Un [facility] [place] [facility] COVID-19 (MOLECULAR 2021-03-28 23:53:00 Nitin Ramon [facility] TESTING Medical Branch NUCLEIC ACID AMPLIFICATION) LAB ONLY COVID 2021-03-28 23:53:00 srini [facility] [place] INTERPRETATION Medical Branch [Q] QUESTASSURED 25-[place] 2019-08-02 00:00:00 [facility] VIT D, (D2,D3), LC/MS/MS [QL] CBC (INCLUDES 2019-08-02 00:00:00 [facility] DIFF/PLT) [QL] CMP W/EGFR 2019-08-02 00:00:00 [facility] [QL] FOLATE, SERUM 2019-08-02 00:00:00 [facility] [QL] HEMOGLOBIN A1c 2019-08-02 00:00:00 [facility] [QL] IRON AND TOTAL IRON 2019-08-02 00:00:00 [facility] BINDING CAPACITY [QL] LIPID PANEL 2019-08-02 00:00:00 [facility] [QL] PTH, INTACT (WITHOUT 2019-08-02 00:00:00 [facility] CALCIUM) [QL] TSH, 3RD GENERATION 2019-08-02 00:00:00 [facility] [QL] VITAMIN A (RETINOL) 2019-08-02 00:00:00 [facility] [QL] VITAMIN B1, WHOLE 2019-08-02 00:00:00 [facility] BLOOD [QL] VITAMIN B12 2019-08-02 00:00:00 [facility] [QL] VITAMIN E 2019-08-02 00:00:00 [facility] (TOCOPHEROL) NM Gallbladder scan HIDA 2019-05-26 00:00:00 [facility] with meds [id number] [LH] CBC (without 2019-04-14 00:00:00 [facility] differential) [QL] COMPREHENSIVE 2019-04-14 00:00:00 [facility] METABOLIC PANEL W/O eGFR [QLH] FOLATE, SERUM 2019-04-14 00:00:00 [facility] [QLH] HEMOGLOBIN A1c 2019-04-14 00:00:00 [facility] [QLH] IRON AND TOTAL IRON 2019-04-14 00:00:00 [facility] BINDING CAPACITY [QLH] LIPID PANEL 2019-04-14 00:00:00 [facility] [QLH] PTH, INTACT 2019-04-14 00:00:00 [facility] (WITHOUT CALCIUM) [QLH] TSH, 3RD GENERATION 2019-04-14 00:00:00 [facility] [QLH] VITAMIN A (RETINOL) 2019-04-14 00:00:00 [facility] [QLH] VITAMIN B1, WHOLE 2019-04-14 00:00:00 [facility] BLOOD [QLH] VITAMIN B12 2019-04-14 00:00:00 [facility] [QLH] VITAMIN D, 2019-04-14 00:00:00 [facility] 25-HYDROXY, LC/MS/MS [QLH] VITAMIN E 2019-04-14 00:00:00 [facility] (TOCOPHEROL) [L] CBC (without 2019-04-14 00:00:00 [facility] differential) [QL] FOLATE, SERUM 2019-04-14 00:00:00 [facility] [QL] HEMOGLOBIN A1c 2019-04-14 00:00:00 [facility] [QL] IRON AND TOTAL IRON 2019-04-14 00:00:00 [facility] BINDING CAPACITY [QL] LIPID PANEL 2019-04-14 00:00:00 [facility] [QL] PTH, INTACT (WITHOUT 2019-04-14 00:00:00 [facility] CALCIUM) [QL] TSH, 3RD GENERATION 2019-04-14 00:00:00 [facility] [QL] VITAMIN A (RETINOL) 2019-04-14 00:00:00 [facility] [QL] VITAMIN B1, WHOLE 2019-04-14 00:00:00 [facility] BLOOD [QL] VITAMIN B12 2019-04-14 00:00:00 [facility] [QL] VITAMIN D, 2019-04-14 00:00:00 [facility] 25-HYDROXY, LC/MS/MS [QL] VITAMIN E 2019-04-14 00:00:00 [facility] (TOCOPHEROL) US Abdomen RUQ [id number] 2019-04-09 00:00:00 [facility] GI Stomach UGI w/KUB air 2018-08-28 00:00:00 [facility] cont and Esophagus Ba swallow [id number] [LH] CBC (without 2018-06-26 00:00:00 [facility] differential) [QL] COMPREHENSIVE 2018-06-26 00:00:00 [facility] METABOLIC PANEL W/O eGFR [QLH] FOLATE, SERUM 2018-06-26 00:00:00 [facility] [QLH] HEMOGLOBIN A1c 2018-06-26 00:00:00 [facility] [QLH] IRON AND TOTAL IRON 2018-06-26 00:00:00 [facility] BINDING CAPACITY [QLH] LIPID PANEL 2018-06-26 00:00:00 [facility] [QLH] PTH, INTACT 2018-06-26 00:00:00 [facility] (WITHOUT CALCIUM) [QLH] TSH, 3RD GENERATION 2018-06-26 00:00:00 [facility] [QLH] VITAMIN A (RETINOL) 2018-06-26 00:00:00 [facility] [QLH] VITAMIN B1, WHOLE 2018-06-26 00:00:00 [facility] BLOOD [QLH] VITAMIN B12 2018-06-26 00:00:00 [facility] [QLH] VITAMIN D, 2018-06-26 00:00:00 [facility] 25-HYDROXY, LC/MS/MS [QLH] VITAMIN E 2018-06-26 00:00:00 [facility] (TOCOPHEROL) [QLH] Helicobacter pylori 2017-08-29 00:00:00 [facility] Breath Test [L] Vitamin D, 2017-07-22 00:00:00 [facility] 25-Hydroxy, Total - Esoterix [LH] CBC (without 2017-07-22 00:00:00 [facility] differential) [QL] COMPREHENSIVE 2017-07-22 00:00:00 [facility] METABOLIC PANEL W/O eGFR [QLH] FOLATE, SERUM 2017-07-22 00:00:00 [facility] [QLH] HEMOGLOBIN A1c 2017-07-22 00:00:00 [facility] [QLH] IRON, TOTAL 2017-07-22 00:00:00 [facility] [QLH] LIPID PANEL 2017-07-22 00:00:00 [facility] [QLH] PTH, INTACT 2017-07-22 00:00:00 [facility] (WITHOUT CALCIUM) [QLH] TSH, 3RD GENERATION 2017-07-22 00:00:00 [facility] [QLH] VITAMIN A (RETINOL) 2017-07-22 00:00:00 [facility] [QLH] VITAMIN B1, WHOLE 2017-07-22 00:00:00 [facility] BLOOD [QLH] VITAMIN B12 2017-07-22 00:00:00 [facility] [QLH] VITAMIN E 2017-07-22 00:00:00 [facility] (TOCOPHEROL) Plan of Care Planned Activity Planned Date Details Comments Source Diagnostic Test 2019-08-02 [Q] QUESTASSURED 25-[place] [facility] Pending 00:00:00 VIT D, (D2,D3), LC/MS/MS [code = [Q] QUESTASSURED 25-[place] VIT D, (D2,D3), LC/MS/MS] Diagnostic Test 2019-08-02 [QL] CBC (INCLUDES [facility] Pending 00:00:00 DIFF/PLT) [code = [QL] CBC (INCLUDES DIFF/PLT)] Diagnostic Test 2019-08-02 [QL] CMP W/EGFR [code = [facility] Pending 00:00:00 [QL] CMP W/EGFR] Diagnostic Test 2019-08-02 [QL] FOLATE, SERUM [facility] Pending 00:00:00 [code = [QL] FOLATE, SERUM] Diagnostic Test 2019-08-02 [QL] HEMOGLOBIN A1c [facility] Pending 00:00:00 [code = [QL] HEMOGLOBIN A1c] Diagnostic Test 2019-08-02 [QL] IRON AND TOTAL [facility] Pending 00:00:00 IRON BINDING CAPACITY [code = [QL] IRON AND TOTAL IRON BINDING CAPACITY] Diagnostic Test 2019-08-02 [QL] LIPID PANEL [code [facility] Pending 00:00:00 = [QL] LIPID PANEL] Diagnostic Test 2019-08-02 [QL] PTH, INTACT [facility] Pending 00:00:00 (WITHOUT CALCIUM) [code = [QL] PTH, INTACT (WITHOUT CALCIUM)] Diagnostic Test 2019-08-02 [QL] TSH, 3RD [facility] Pending 00:00:00 GENERATION [code = [QL] TSH, 3RD GENERATION] Diagnostic Test 2019-08-02 [QL] VITAMIN A [facility] Pending 00:00:00 (RETINOL) [code = [QL] VITAMIN A (RETINOL)] Diagnostic Test 2019-08-02 [QL] VITAMIN B1, WHOLE [facility] Pending 00:00:00 BLOOD [code = [QL] VITAMIN B1, WHOLE BLOOD] Diagnostic Test 2019-08-02 [QL] VITAMIN B12 [code [facility] Pending 00:00:00 = [QL] VITAMIN B12] Diagnostic Test 2019-08-02 [QL] VITAMIN E [facility] Pending 00:00:00 (TOCOPHEROL) [code = [QL] VITAMIN E (TOCOPHEROL)] Diagnostic Test 2019-04-14 [LH] CBC (without [facility] Pending 00:00:00 differential) [code = [LH] CBC (without differential)] Diagnostic Test 2019-04-14 [QL] COMPREHENSIVE [facility] Pending 00:00:00 METABOLIC PANEL W/O eGFR [code = [QL] COMPREHENSIVE METABOLIC PANEL W/O eGFR] Diagnostic Test 2019-04-14 [QLH] FOLATE, SERUM [facility] Pending 00:00:00 [code = [QLH] FOLATE, SERUM] Diagnostic Test 2019-04-14 [QLH] HEMOGLOBIN A1c [facility] Pending 00:00:00 [code = [QLH] HEMOGLOBIN A1c] Diagnostic Test 2019-04-14 [QLH] IRON AND TOTAL [facility] Pending 00:00:00 IRON BINDING CAPACITY [code = [QLH] IRON AND TOTAL IRON BINDING CAPACITY] Diagnostic Test 2019-04-14 [QLH] LIPID PANEL [code [facility] Pending 00:00:00 = [QLH] LIPID PANEL] Diagnostic Test 2019-04-14 [QLH] PTH, INTACT [facility] Pending 00:00:00 (WITHOUT CALCIUM) [code = [QLH] PTH, INTACT (WITHOUT CALCIUM)] Diagnostic Test 2019-04-14 [QLH] TSH, 3RD [facility] Pending 00:00:00 GENERATION [code = [QLH] TSH, 3RD GENERATION] Diagnostic Test 2019-04-14 [QLH] VITAMIN A [facility] Pending 00:00:00 (RETINOL) [code = [QLH] VITAMIN A (RETINOL)] Diagnostic Test 2019-04-14 [QLH] VITAMIN B1, WHOLE [facility] Pending 00:00:00 BLOOD [code = [QLH] VITAMIN B1, WHOLE BLOOD] Diagnostic Test 2019-04-14 [QLH] VITAMIN B12 [code [facility] Pending 00:00:00 = [QLH] VITAMIN B12] Diagnostic Test 2019-04-14 [QLH] VITAMIN D, [facility] Pending 00:00:00 25-HYDROXY, LC/MS/MS [code = [QLH] VITAMIN D, 25-HYDROXY, LC/MS/MS] Diagnostic Test 2019-04-14 [QLH] VITAMIN E [facility] Pending 00:00:00 (TOCOPHEROL) [code = [QLH] VITAMIN E (TOCOPHEROL)] Encounters Start End Encounter Admission Attending Care Care Encounter Source Date/Time Date/Time Type Type Clinicians Facility Department ID 2021-03-21 Outpatient Garcia, Na STLMLC STLMLC [id number] 2 Common 13:28:15 [id number] [facility] 2021-03-21 Outpatient Garcia, Na STLMLC STLMLC [id number] 2 Common 13:27:43 [id number] [place] [facility] 2021-03-21 Outpatient Garcia, Na STLMLC STLMLC [id number] 2 Common 12:18:30 [id number] [facility] 2021-03-21 Outpatient Garcia, Na STLMLC STLMLC [id number] 2 Common 11:39:28 [id number] [facility] 2021-03-21 Outpatient Garcia, Na STLMLC STLMLC [id number] 2 Common 11:38:53 [id number] [facility] 2021-03-21 Outpatient Garcia, Na STLMLC STLMLC [id number] 2 Common 11:18:32 [id number] [facility] 2022-01-30 2022-01-30 Urgent Nitin Ramon [facility] [id number] [facility] 16:30:00 16:50:00 Care Unknown, Attending HEALTH 350.1.13.10 ity of [place] 4.2.7.2.686 Zheng as NBA?BLEA [id number] [address] MEDICAL OFFICE [facility] 2022-01-30 2022-01-30 Outpatient R EUGENIO [facility] [id number] Univers 16:30:00 16:30:00 NITIN ity [facility] 2021-04-25 2021-04-25 Outpatient R KING SAMANTHA, [facility] [id number] Univers 10:20:00 10:49:46 RICHARDSON ity [facility] 2021-04-18 2021-04-18 OFFICE STLMLC STLMLC [id number] Co mmon 00:00:00 00:00:00 VISIT EST Spir it PT LEVEL 3 - [facility] 2021-04-18 2021-04-18 (TEL) STLMLC STLMLC [id number] Co mmon 00:00:00 00:00:00 [facility] 2021-04-16 2021-04-16 [facility] [id number] Univers 09:15:00 09:25:09 [facility] 2021-04-16 2021-04-16 Nurse Nurse, [facility] 1.2.840.114 [id number] Univers 09:15:00 09:25:09 Visit [facility] 350.1.13.10 ity of [place] 4.2.7.2.686 Zheng as NBA?BLEA [phone] [address] MEDICAL OFFICE [facility] 2021-04-16 2021-04-16 Orders Doctor FERREIRA 1.2.840.114 [id number] Univers 00:00:00 00:00:00 Only Unassigned, GONZÁLEZ 350.1.13.10 ity of [place] [facility] 4.2.7.2.686 Zheng as [phone] [address] 2021-03-29 2021-03-29 Letter HANNA Nieves 1.2.840.114 [id number] Univers 00:00:00 00:00:00 (Out) Lida CLAUDIO 350.1.13.10 it y of HOSPITAL 4.2.7.2.686 Zheng as [phone] [facility] [address] Branch 2021-03-28 2021-03-28 Laboratory Only, Ang Db Test [facility] 1.2.8 40.114 [id number] Univers 17:30:00 17:45:02 Only Nitin Ramon [facility] 350.1.13.10 ity of [place] 4.2.7.2.686 Zheng as NBA?BLEA [phone] Co dical [address] MEDICAL OFFICE BUILDING 2021-03-28 2021-03-28 Outpatient R EUGENIO [facility] [id number] Univers 17:30:00 17:45:02 RANIA ity of [facility] 2021-03-28 2021-03-28 Letter Doctor HANNA 1.2.840.114 [id number] 00:00:00 00:00:00 (Out) Unassigned, GONZÁLEZ 350.1.13.10 ity of [place] [facility] 4.2.7.2.686 Zheng as [phone] [facility] 0[address] Branch 2020-09-20 2020-09-20 OL DIG E/M STLMLC STLMLC [id number] Common 00:00:00 00:00:00 [facility] 11-20 Spir it MIN [facility] 2019-10-15 2019-10-15 Out[facility] [id number] Common 09:40:00 09:40:[address] Sp[address] Family [facility] 2019-09-29 2019-09-29 Outpatient [facility] [id number] Common 04:03:00 04:03:[address] Sp[address] Family [facility] 2019-09-22 2019-09-22 Outpatient [facility] [id number] Common 17:16:00 17:16:[address] Sp[address] Family [facility] 2019-07-30 2019-07-30 Outpatient [facility] [id number] Common 10:40:00 10:40:[address] Sp[address] Drive Family [facility] 2019-04-09 2019-04-09 Staci [facility] [id number] [place] 09:15:00 09:15:00 t; INEZ, Surgery - Bharati MAYA D.O. [facility] INEZ Medical D.O. [place] 2019-03-05 2019-03-05 Staci MAYA, TIA [facility] [id number] [place] 09:15:00 09:15:00 t; INEZ, Physi ci Ezio MAYAOEzio ParkerOLon 2018-11-27 2018-11-27 Staci MAYA, [facility] [id number] [place] 09:15:00 09:15:00 t; INEZ, Physi ci Sabino MAYA.OSabino Parker.OLon 2018-11-13 2018-11-13 Outpatient [facility] MELISSA [id number] [facility] 10:55:00 10:55:00 2018-11-13 2018-11-13 Staci MAYA, TIA [facility] [id number] [place] 08:00:00 08:00:00 t; INEZ, Physi ci Sabino MAYA.OEzio ParkerOLon 2018-08-28 2018-08-28 Staci MAYA, [facility] [id number] [place] 09:15:00 09:15:00 t; INEZ, Invasive Phys [place] MAY[facility] 2018-06-26 2018-06-26 Staci MAYA, TIA [place] [id number] [place] 09:00:00 09:00:00 t; INEZ, Surgery Physi Ezio MiddletonOLon Specialty ans Ezio WILEYOLon 2018-04-10 2018-04-10 Staci MAYA, [facility] [id number] [place] 09:30:00 09:30:00 t; INEZ, Surgery Physi ci Ezio MAYAOEzio ParkerOLon 2018-03-06 2018-03-06 Staci MAYA, TIA [facility] [id number] [place] 09:00:00 09:00:00 t; NIEZ, Physi ci Sabino MAYA.OSabino Parker.OLon 2018-02-20 2018-02-20 Staci MAYA, TIA [facility] [id number] [place] 08:00:00 08:00:00 t; INEZ, Physi ci FELINSKI, D.OLon ans Ezio WILEYO. 2018-02-06 2018-02-06 Appointevelyn MAYA, [facility] UTP [id number] [place] 07:30:00 07:30:00 t; INEZ, Physi ci Ezio MAYAO. ans Ezio WILEYO. 2018-01-02 2018-01-02 Appointevelyn MAYA, UTP UTP [id number] [place] 09:00:00 09:00:00 t; INEZ, Physi ci Ezio MAYAO. ans Ezio WILEYO. 2017-11-28 2017-11-28 Appointevelyn MAYA, [facility] UTP [id number] [place] 09:30:00 09:30:00 t; INEZ, Physi ci Ezio MAYAO. ans Ezio WILEYO. 2017-10-31 2017-10-31 [facility] [id number] [place] 13:30:00 13:30:00 t; ASHLEY PACHECO, Surgery Phys ici ASHLEY, [employer] Specialty ans [employer] EXPERT 2017-10-10 2017-10-10 Appointevelyn ARIASI [facility] [id number] [place] 10:30:00 10:30:00 t; N, NASIR, Phys ici [address] ans [place], NASIR, RD 2017-09-26 2017-09-26 Staci MAYA, [facility] [id number] [place] 10:00:00 10:00:00 t; INEZ, Physi ci Radha MAYA ans Ezio WILEYOLon 2017-09-04 2017-09-04 Outpatient [facility] [id number] Common 12:58:00 12:58:[address] [employer] [facility] 2017-08-29 2017-08-29 Appointevelyn MAYA, [facility] General [id number] [place] 10:00:00 10:00:00 t; INEZ, Surgery Physi ci Ezio MAYAO. ans Ezio WILEYO. 2017-08-05 2017-08-05 Outpatient [facility] [id number] Common 09:30:00 09:30:[address] [facility] 2017-08-01 2017-08-01 Staci MAYA, UTP [facility] [id number] [place] 10:30:00 10:30:00 t; INEZ, Physi Radha Middleton D.O. 2017-07-22 2017-07-22 AppointTIA [facility] [id number] [place] 10:00:00 10:00:00 t; INEZ, Surgery Physi Radha Middleton D.O. 2017-06-11 2017-06-11 Outpatient Yann Alva 13 [id number] Common 08:30:00 08:30:00 t [employer] [facility] [employer] [facility] Results Test Description Test Time Test Comments Results Result Sour e Comments NM Gallbladder 2019-06-26 NUCLEAR MEDICINE [place] [facility] scan HIDA with 9 SCAN INDICATION: meds [id number] 12:21:00 R10.9 - R10.9COMPARISON: Right upper quadrant ultrasound 04/16/2019TECHNIQUE: Following [...] Flynn MDDictated Date/time: 07/23/19 12:20Electronically Signed by: Juan José Flynn MD 07/23/2011:22FINAL REPORT GI Esophagus 2018-09-25 EXAM: Upper GI series [facility] barium swallow 3 air contrast w KUB [id number] 08:47:00 DX, Barium swallow DXDATE: 10/16/2018 8:47 CDT.INDICATION: K21.9 Gastro-esophageal reflux [...] Stomach UGI 2018-09-25 EXAM: Upper GI series [facility] air contrast 3 air contrast w KUB (barium) with 08:47:00 DX, Barium swallow KUB [id number] DXDATE: 10/16/2018 8:47 CDT.INDICATION: K21.9 Gastro-esophageal reflux [...] 14.7 g/dl 12.0-16.0 Hct (test code = 70451-9) 43.5 % 36.0-48.0 MCV (test code = 787-2) 92.1 fL 80.0-98.0 MCH; Above High Threshold (test code = 785-6) 31.1 pg 27.0-31. 0 MCHC (test code = 786-4) 33.8 g/dl 32.0-36.0 RDW (test code = 788-0) 13.6 % 11.5-14.5 Platelet (test code = 43863-5) 243 {K/CMM} 133-450 Mean Platelet Volume (test code = 76170-3) 10.0 fL 7.4-10.4 [facility][QL] HEMOGLOBIN [id number] 09:44:01 Test Item Value Reference Range Interpretation Comments Hemoglobin A1c; Above High Threshold 5.7 % <=5.6 (test code = 4548-4) [facility][QL] PTH, INTACT (WITHOUT CALCIUM)2018-06-26 09:44:01 Test Item Value Reference Range Interpretation Comments Parathyroid Hormone Intact (test 25.9 pg/ml 18.4-80.1 code = 2731-8) [facility][QL] CMP [id number] 09:44:01 Test Item Value Reference Range Interpretation Comments Sodium Level 143 {mEq/l} 135-145 (test code = 2951-2) Potassium Level 4.2 {mEq/l} 3.5-5.1 (test code = 2823-3) Chloride Level; 110 {mEq/l} 95-109 Above High Threshold (test code = 2074-0) Carbon Dioxide 25 {mEq/l} 24-32 (test code = 2027-9) AGAP (test code = 12.2 {mEq/l} 10.0-20.0 44072-9) Glucose Lvl (test 79 mg/dl 70-99 Adult refe rence range code = 2345-7) values reflec t the clinical guidel inesof the [place] Diabet es Association. Creatinine Lvl 0.70 mg/dl 0.50-1.40 (test code = 2160-0) Blood Urea 13 mg/dl 7-22 Nitrogen (test code = 3094-0) BUN/Creatinine 19 6-25 Ratio (test code = 3097-3) Total Protein 6.9 g/dl 6.4-8.4 (test code = 2885-2) Albumin Lvl (test 3.8 g/dl 3.5-5.0 code = 1751-7) Globulin (test 3.1 g/dl 2.7-4.2 code = 82605-1) A/G Ratio (test 1.2 0.7-1.6 code = 1759-0) Calcium Level 9.2 mg/dl 8.5-10.5 Total (test code = 32918-6) ALT (test code = 28 u/l 0-65 1743-4) AST (test code = 15 u/l 0-37 82177-1) Alk Phos (test 94 u/l 39-136 code = 1783-0) Bili Total (test 0.4 mg/dl 0.2-1.3 code = 1974-) eGFR (test code = 104 The eGFR i s calculated 03697-9) {ML/MIN/1.7} using the CKD-E PI formula. In [...] be multiplied by t he estimated BMI. [facility][QL] IRON AND TOTAL IRON BINDING [id number] 09:44:01 Test Item Value Reference Range Interpretation Comments Iron (test code = 2498-4) 105 ug/dL 30-160 % Satur Fe (test code = 2502-3) 31 % 12-57 TIBC (test code = 2500-7) 344 ug/dL 228-428 UIBC (test code = UIBC) 239 ug/dL 110-370 [facility]] LIPID [id number] 09:44:01 Test Item Value Reference Range Interpretation Comments Chol; Above High Threshold (test 226 mg/dl <=199 code = 2093-3) Trig; Above High Threshold (test 350 mg/dl <=149 code = 2571-8) HDL Cholesterol; Below Low 43 mg/dl >=61 Threshold (test code = 2085-9) LDL; Above High Threshold (test 113 mg/dl <=99 code = 97608-1) CHD Risk (test code = 72934-5) 5.26 3.90-5.80 VLDL (test code = VLDL) 70 [facility][QL] TSH, 3RD [id number] 09:44:01 Test Item Value Reference Range Interpretation Comments TSH (test code = 32288-3) 0.693 {uIU/ml} 0.360-3.740 [facility]] VITAMIN [id number] 09:44:01 Test Item Value Reference Range Interpretation Comments Vitamin B12 Level (test code = 288 pg/ml 254-1320 2132-9) [facility]] FOLATE, [id number] 09:44:01 Test Item Value Reference Range Interpretation Comments Folate Level (test code = 2284-8) 36.5 ng/ml >=3.0 [facility][QLH] VITAMIN D, 25-HYDROXY, [id number] 09:44:01 Test Item Value Reference Range Interpretation Comments Vitamin D, 25-OH, 43.9 ng/ml 30.0-100.0 Reference range is based Total (test code on recommen dations in the = Vitamin D, EndocrineSociet y Clinical 25-OH, Total) Practice Guide line (J Clin Endocrinol Xeuok1792;96:19 11-1930) [facility][H] Vit [id number] 09:44:01 Test Item Value Reference Range Interpretation [...] and i ts performance characteristics determined by [employer] It has not been cleared orappro candace by the Food and Drug Administration. Performed At: [facility] [address] [id number] ra Stuart NOLAN Ph:[phone] [facility][H] Vitamin E [id number] 09:44:01 Test Item Value Reference Range Interpretation Comments Alpha-Tocoph 18.8 mg/L 7.0-25.1 This test was d eveloped and its servando (test performance code = characteristics determined by [employer]. It has not been cleared servando) orapproved by [facility] Food and Drug Administration. Gamma-Tocoph 1.7 mg/L 0.5-5.5 This test was d eveloped and its servando (test performance code = characteristics determined by Gamma[employer]Tocoph [facility]. It has not been cleared servando) orapproved by t Food and Drug Administration. Reference intervals for a lpha and gamma-tocophero ldetermined from National Health and Nutrition ExaminationSurv , 0757-9547. Individuals wit h alpha-tocophero l levelsless than 5.0 mg/L are co nsidered vitamin E deficient.Per formed At: [facility] [address] [id number] ra Stuart NOLAN Ph:[phone] [facility]] VITAMIN B1, WHOLE [id number] 09:44:01 Test Item Value Reference Range Interpretation Comments Vitamin B1 153.5 66.5-200.0 This test was d eveloped and its Level (test nmol/L performance code = characteristics determined by Vitamin B1 [facility]. It has not been Level) cleared orappro candace by the Food and Drug Administration. Performed At: [facility] [address] [id number] ra Stuart NOLAN Ph:[phone] [facility][H] [facility] [id number] 12:50:01 Test Item Value Reference Range Interpretation Comments [facility] (test COMMENT Test Orde red: 421218 code = [facility]) 25-Hydr oxyvitamin D LCMS D2+E257-Tblovtw , Vitamin D 33 ng/mL ESR eference Range:All Ages: Target levels 30 - 67804-Uqzgvod, Vitamin D-2 <1.0 ng/mL LF50-Hjxnzwk, V itamin D-3 33 ng/mL ESPerf ormed At: [facility] [address] [id number] marisol Mcmillan MD Ph:[phone] rformed At: [facility] [employer] Lvjuykmleycwp[address] [place] [address] [id number] tabitha Leroy Miller MD Ph:[phone] [facility][] CBC (without differential)2017-07-22 12:01:01 Test Item Value Reference Range Interpretation Comments WBC; Above High Threshold (test 11.0 {K/CMM} 3.7-10.4 code = 6690-2) RBC (test code = 789-8) 4.89 {M/CMM} 4.20-5.40 Hgb (test code = 718-7) 14.6 g/dl 12.0-16.0 Hct (test code = 33758-3) 43.2 % 36.0-48.0 MCV (test code = 787-2) 88.4 fL 80.0-98.0 MCH (test code = 785-6) 29.9 pg 27.0-31.0 MCHC (test code = 786-4) 33.8 g/dl 32.0-36.0 RDW (test code = 788-0) 13.7 % 11.5-14.5 Platelet (test code = 36362-4) 321 {K/CMM} 133-450 Mean Platelet Volume (test code 9.6 fL 7.4-10.4 = 23491-1) [facility][QL] PTH, INTACT (WITHOUT CALCIUM)2017-07-22 12:01:01 Test Item Value Reference Range Interpretation Comments Parathyroid Hormone Intact (test 37.7 pg/ml 18.4-80.1 code = 2731-8) [facility][QL] CMP [id number] 12:01:01 Test Item Value Reference Range Interpretation Comments Sodium Level 141 {mEq/l} 135-145 (test code = 2951-2) Potassium Level 4.3 {mEq/l} 3.5-5.1 (test code = 2823-3) Chloride Level 108 {mEq/l} 95-109 (test code = 5-0) Carbon Dioxide 24 {mEq/l} 24-32 (test code = 8-9) AGAP (test code = 13.3 {mEq/l} 10.0-20.0 32294-0) Glucose Lvl; 100 mg/dl 70-99 Adult reference range Above High values reflect the Threshold (test clinical khalif delinesof the code = 2345-7) [place]er Diab etes Association. Creatinine Lvl 0.60 mg/dl 0.50-1.40 (test code = 2160-0) Blood Urea 11 mg/dl 7-22 Nitrogen (test code = 3094-0) BUN/Creatinine 18 6-25 Ratio (test code = 3097-3) Total Protein 7.3 g/dl 6.4-8.4 (test code = 2885-2) Albumin Lvl (test 4.0 g/dl 3.5-5.0 code = 1751-7) Globulin (test 3.3 g/dl 2.7-4.2 code = 35184-5) A/G Ratio (test 1.2 0.7-1.6 code = 1759-0) Calcium Level 9.3 mg/dl 8.5-10.5 Total (test code = 89197-0) ALT; Above High 91 u/l 0-65 Threshold (test code = 1743-4) AST; Above High 54 u/l 0-37 Threshold (test code = 06474-9) Bili Total (test 0.4 mg/dl 0.2-1.3 code = 1975-2) Alk Phos (test 98 u/l 39-136 code = 1783-0) eGFR (test code = 110 The eGFR i s calculated 01296-8) {ML/MIN/1.7} using the CKD-E PI formula. In [...] be multiplied by t he estimated BMI. [facility]] IRON, [id number] 12:01:01 Test Item Value Reference Range Interpretation Comments Iron (test code = 2498-4) 66 ug/dL 30-160 [facility]] TSH, 3RD [id number] 12:01:01 Test Item Value Reference Range Interpretation Comments TSH (test code = 40376-0) 0.860 {uIU/ml} 0.360-3.740 [facility]] VITAMIN [id number] 12:01:01 Test Item Value Reference Range Interpretation Comments Vitamin B12 Level (test code = 304 pg/ml 254-1320 2132-9) [facility]] FOLATE, [id number] 12:01:01 Test Item Value Reference Range Interpretation Comments Folate Level (test code = 2284-8) 41.6 ng/ml >=3.0 [facility]] LIPID [id number] 12:01:01 Test Item Value Reference Range Interpretation Comments Chol; Above High 254 mg/dl <=199 Threshold (test code = 2093-3) Trig; Above High 478 mg/dl <=149 Threshold (test code = 2571-8) HDL Cholesterol; 40 mg/dl >=61 Below Low Threshold (test code = 2085-9) CHD Risk; Above 6.35 3.90-5.80 High Threshold (test code = 45795-1) LDL (test code = See Note <=99 [place] [address]-9) calculated due to very high triglyceri jorge luis (>400mg/dL). Re commend Direct LDL if c linically indicated. VLDL (test code = See Note VLDL - Cho lesterol level VLDL) cannot be accur ately calculated due to very hightriglycerid es (>400 mg/dL). [facility]] HEMOGLOBIN [id number] 12:01:01 Test Item Value Reference Range Interpretation Comments Hemoglobin A1c; Above High Threshold 5.8 % <=5.6 (test code = 4548-4) [facility]] VITAMIN B1, WHOLE [id number] 12:01:01 Test Item Value Reference Range Interpretation Comments Vitamin B1 177.6 66.5-200.0 This test was d eveloped and its Level (test nmol/L performance code = characteristics determined by Vitamin B1 [facility]. It has not been Level) cleared orappro candace by the Food and Drug Administration. Performed At: [facility] [id number] [place], [place] [id number] marisol Mcmillan MD Ph:[phone] [facility][H] Vit [id number] 12:01:01 Test Item Value Reference Range Interpretation Comments Vitamin A 43.9 ug/dL 33.1-100.0 Reference inter vals for vitamin Level (test A determined fr om code = NationalHealth and Nutrition Vitamin A Examination Melissa vey, Level) 0239-2129.Indiv iduals with vitamin A less than 20 ug/dL areconsidered v itamin A deficient and t hose with serumconcentrat ions less than 10 ug/dL are co nsidered severelydeficie nt.This test was developed and i ts performance characteristics determined by [employer]. It has not been cleared orappro candace by the Food and Drug Administration. Performed At: [facility] [id number] [place], [place] [id number] marisol Mcmillan MD Ph:[phone] [facility][H] Vitamin E [id number] 12:01:01 Test Item Value Reference Range Interpretation Comments Alpha-Tocoph 20.6 mg/L 7.0-25.1 servando (test code = Alpha-Tocoph servando) Gamma-Tocoph 2.8 mg/L 0.5-5.5 Reference inter vals for alpha servando (test and gamma-tocop heroldetermined code = from National H ealth and Gamma-Tocoph Nutrition Exami nationSurvey, servando) 4793-5237. Sammi viduals with alpha-tocophero l levelsless than 0.5 mg/L are co nsidered vitamin E deficient.Thi s test was developed and i ts performance characteristics determined by [facility]. It has not been cleared orapproved by [facility] Food and Drug Administration. Performed At: [facility] [address] [place], [place] [id number] marisol Mcmillan MD Ph:[phone] [facility]
[2022-11-28 14:30] LABS: Hematocrit 40.7 % (36.0-45.0); Lymphocytes % 27.2 % (15.3-44.8); MPV 8.8 fL (7.6-11.3); Platelets 256 thou/uL (152-406); RBC Red Blood Cell Count 4.53 M/uL (3.86-4.86)
[2022-11-28 14:49] LABS: Albumin 3.5 g/dL (3.4-5.0); Bilirubin Direct 0.1 mg/dL (0-0.2); Bilirubin Indirect, Calculated 0.3 mg/dL (0.2-0.8); Bilirubin Total 0.4 mg/dL (0.2-1.0); Magnesium 2.4 mg/dL (1.6-2.4); Potassium 3.5 mEq/L (3.5-5.1); Protein, Total 7.4 g/dL (6.4-8.2); Troponin High Sensitivity 3.2 pg/mL (<58.9)
--- NOTE | 2022-11-28 15:04 | RAD REPORT ---
EXAM DESCRIPTION: RAD - Chest Single View - 11/28/2022 2:48 pm CLINICAL HISTORY: epigastric pain Chest pain. COMPARISON: Chest Single View dated 04/16/2021; CHEST PA AND LAT 2 VIEW dated 06/24/2012 FINDINGS: Portable technique limits examination quality. The lungs are grossly clear. The heart is normal in size. No displaced fractures. IMPRESSION: No acute intrathoracic process suspected.
--- NOTE | 2022-11-28 15:28 | EDPHYS ---
Physician Documentation [facility] Name: Luana Andre Age: 52 yrs Sex: Female : 1970 Arrival Date: 11/28/2022 Time: 13:32 Bed 2 Private MD: ED Physician Isaiah Ghosh HPI: 11/28 14:01 This 52 yrs old Female presents to ER via Ambulatory with complaints of Abdominal Pain, ms3 sweats, vibrations. 14:01 52-year-old female with past medical history of GERD, gastric sleeve presents for upper ms3 abdominal pain, sweating, lip tingling, hand tingling that occurred prior to arrival. Patient endorses vomiting on her way to the hospital. Patient states her pain is currently a 4/10 and cramping located in the epigastric region. Patient denies any alleviating or inciting factors. Patient denies radiation of pain. Historical: - Allergies: 13:41 Codeine (Vomiting); ld1 13:41 Robitussin Cough \T\ Cold CF; ld1 - PMHx: 13:43 None; ld1 - PSHx: 13:41 Ankle; hysterectomy; ld1 - Immunization history:: Adult Immunizations up to date. - Social history:: Smoking status: Patient reports the use of cigarette tobacco products, smokes one-half pack cigarettes per day, Patient/guardian denies using alcohol. ROS: 14:01 Constitutional: Negative for fever, and chills. Neck: Negative for injury, pain, and ms3 swelling, Cardiovascular: Negative for chest pain, and palpitations. Respiratory: Negative for shortness of breath, cough, wheezing, and pleuritic chest pain, 14:01 MS/Extremity: Negative for injury and deformity, Skin: Negative for injury, rash, and discoloration, 14:01 Abdomen/GI: Positive for abdominal pain, 14:01 All other systems are negative, Exam: 14:01 Constitutional: This is a well developed, well nourished patient who is awake, alert, ms3 and in no acute distress. Head/Face: Normocephalic, atraumatic. Neck: Trachea midline, no cervical lymphadenopathy. Supple, full range of motion without nuchal rigidity, or vertebral point tenderness. No Meningismus. Chest/axilla: Normal chest wall appearance and motion. Nontender with no deformity. Cardiovascular: Regular rate and rhythm with a normal S1 and S2. No gallops, murmurs, or rubs. Normal PMI, no JVD. No pulse deficits. Respiratory: Lungs have equal breath sounds bilaterally, clear to auscultation and percussion. No rales, rhonchi or wheezes noted. No increased work of breathing, no retractions or nasal flaring. Abdomen/GI: Soft, non-tender, with normal bowel sounds. No distension or tympany. No guarding or rebound. No evidence of tenderness throughout. Back: No spinal tenderness. No costovertebral tenderness. Full range of motion. Skin: Warm, dry with normal turgor. Normal color with no rashes, no lesions, and no evidence of cellulitis. MS/ Extremity: Pulses equal, no cyanosis. Neurovascular intact. Full, normal range of motion. 14:33 ECG was reviewed by the Attending Physician. ms3 Vital Signs: 13:39 BP 105 / 65; Pulse 65; Resp 18; Temp 98.3(O); Pulse Ox 100% on R/A; Weight 72.12 kg; ld1 Height 5 ft. 3 in. ; Pain 5/10; 15:26 BP 99 / 76; Pulse 68; Resp 16 S; Pulse Ox 99% on R/A; kc6 13:39 Body Mass Index 28.17 (72.12 kg, 160.02 cm) ld1 13:39 Pain Scale: Adult ld1 MDM: 14:01 Differential diagnosis: coronary artery disease, cholecystitis, Cholelithiasis, ms3 gastritis, myocardia ischemia or infarction, non-specific abd pain, pancreatitis. 14:10 Patient medically screened. ms3 15:27 Data reviewed: vital signs, nurses notes, lab test result(s), EKG, radiologic studies, ms3 and as a result, I will discharge patient. Independent interpretation of the following test(s) in the Emergency Department X-Ray: My interpretation is Chest x-ray image reviewed by me does not reveal pulmonary edema, pneumonia. Counseling: I had a detailed discussion with the patient and/or guardian regarding the historical points, exam findings, and any diagnostic results supporting the discharge/admit diagnosis, lab results, radiology results, the need for outpatient follow up, to return to the emergency department if symptoms worsen or persist or if there are any questions or concerns that arise at home. ED course: Discussed labs, chest x-ray, EKG with patient. Patient follow-up with Dr. Ni in 2 to 3 days. Patient understands and agrees with plan. All questions were answered. Return precautions discussed include worsening symptoms, or any other concerns.. 11/28 13:47 Order name: Basic Metabolic Panel; Complete Time: 15:12 ms3 11/28 13:47 Order name: CBC with Diff; Complete Time: 15:12 ms3 11/28 13:47 Order name: LFT's; Complete Time: 15:12 ms3 11/28 13:47 Order name: Magnesium; Complete Time: 15:12 ms3 11/28 13:47 Order name: Troponin HS; Complete Time: 15:12 ms3 11/28 13:47 Order name: Lipase; Complete Time: 15:12 ms3 11/28 13:47 Order name: XRAY Chest (1 view); Complete Time: 15:12 ms3 11/28 13:47 Order name: EKG; Complete Time: 13:47 ms3 11/28 13:47 Order name: Cardiac monitoring; Complete Time: 14:26 ms3 11/28 13:47 Order name: EKG - Nurse/Tech; Complete Time: 13:50 ms3 11/28 13:47 Order name: IV Saline Lock; Complete Time: 14:26 ms3 11/28 13:47 Order name: Labs collected and sent; Complete Time: 14:26 ms3 11/28 13:47 Order name: O2 Per Protocol; Complete Time: 14:10 ms3 11/28 13:47 Order name: O2 Sat Monitoring; Complete Time: 14:10 ms3 EC:33 Rate is 66 beats/min. Rhythm is regular. QRS [place] is Normal. [place] interval is normal. QRS ms3 interval is normal. QT interval is normal. Clinical impression: Normal ECG. Interpreted by me. Reviewed by me. Administered Medications: No medications were administered Disposition Summary: 11/28/22 15:27 Discharge Ordered Notes: Location: Home ms3 Condition: Stable ms3 Diagnosis - Epigastric pain ms3 Followup: ms3 - With: Casa Ni MD - When: 2 - 3 days - Reason: Recheck today's complaints Discharge Instructions: - Discharge Summary Sheet ms3 - Abdominal Pain, Adult ms3 Forms: - Medication Reconciliation Form ms3 - Thank You Letter ms3 - Antibiotic Education ms3 - Prescription Opioid Use ms3 - Patient Portal Instructions ms3 - Leadership Thank You Letter ms3 Signatures: Dispatcher [employer] EDIsaiah Carter, DO DO ms3 Debbie Ghosh, RN RN ld1
--- NOTE | 2022-11-28 15:28 | ER ---
Nurse's Notes [facility] Name: Luana Andre Age: 52 yrs Sex: Female : 1970 Arrival Date: 11/28/2022 Time: 13:32 Bed 2 Private MD: Diagnosis: Epigastric pain Presentation: 11/28 13:39 Chief complaint: Patient states: Sweating, epigastric pain, N/V, Tingling of hands and ld1 fingers to elbows, confusion/memory loss X 30-45 minutes. Coronavirus screen: At this time, the client does not indicate any symptoms associated with coronavirus-19. Ebola Screen: No symptoms or risks identified at this time. Initial Sepsis Screen: Does the patient meet any 2 criteria? No. Patient's initial sepsis screen is negative. Does the patient have a suspected source of infection? No. Patient's initial sepsis screen is negative. Risk Assessment: Do you want to hurt yourself or someone else? Patient reports no desire to harm self or others. Onset of symptoms was November 28, 2022 at 13:41. 13:39 Method Of Arrival: Ambulatory ld1 13:39 Acuity: ANA 3 ld1 Triage Assessment: 13:41 General: Appears in no apparent distress. comfortable, Behavior is calm, cooperative, ld1 appropriate for age. Pain: Complains of pain in abdomen Pain does not radiate. Pain currently is 5 out of 10 on a pain scale. Quality of pain is described as throbbing. EENT: No signs and/or symptoms were reported regarding the EENT system. Neuro: Level of Consciousness is awake, alert, obeys commands, Oriented to person, place, time, situation. Cardiovascular: Capillary refill < 3 seconds Patient's skin is warm and dry. Respiratory: Airway is patent Respiratory effort is even, unlabored. GI: Abdomen is round non-distended, Reports epigastric pain. : No signs and/or symptoms were reported regarding the genitourinary system. Derm: Reports tingling. Musculoskeletal: No signs and/or symptoms reported regarding the musculoskeletal system. Historical: - Allergies: 13:41 Codeine (Vomiting); ld1 13:41 Robitussin Cough \T\ Cold CF; ld1 - PMHx: 13:43 None; ld1 - PSHx: 13:41 Ankle; hysterectomy; ld1 - Immunization history:: Adult Immunizations up to date. - Social history:: Smoking status: Patient reports the use of cigarette tobacco products, smokes one-half pack cigarettes per day, Patient/guardian denies using alcohol. Screenin:[facility] ED Fall Risk Assessment (Adult) History of falling in the last 3 months, kc6 including since admission No falls in past 3 months (0 pts) Confusion or Disorientation No (0 pts) Intoxicated or Sedated No (0 pts) Impaired Gait No (0 pts) Mobility Assist Device Used No (0 pt) Altered Elimination No (0 pt) Score/Fall Risk Level 0 - 2 = Low Risk. Abuse screen: Denies threats or abuse. Denies injuries from another. Nutritional screening: No deficits noted. Tuberculosis screening: No symptoms or risk factors identified. Assessment: 14:27 General: Appears in no apparent distress. comfortable, well groomed, Behavior is calm, kc6 cooperative, appropriate for age. Pain: Complains of pain in abdomen. Neuro: Level of Consciousness is awake, alert, obeys commands, Oriented to person, place, time, situation, Appropriate for age Reports dizziness. Cardiovascular: Denies chest pain, Heart tones S1 S2 present Capillary refill < 3 seconds Rhythm is sinus rhythm. Respiratory: Airway is patent Trachea midline Respiratory effort is even, unlabored, Respiratory pattern is regular, symmetrical, Denies shortness of breath. GI: Abdomen is flat, non-distended, Bowel sounds present X 4 quads. Abd is soft and non tender X 4 quads. Reports nausea, vomiting, Patient currently denies diarrhea. : No signs and/or symptoms were reported regarding the genitourinary system. EENT: No signs and/or symptoms were reported regarding the EENT system. Derm: No signs and/or symptoms reported regarding the dermatologic system. Skin is intact, is healthy with good turgor, Skin is pink, warm \T\ dry. Musculoskeletal: No signs and/or symptoms reported regarding the musculoskeletal system. Circulation, motion, and sensation intact. Capillary refill < 3 seconds, Range of motion: intact in all extremities. 15:25 Reassessment: Patient appears in no apparent distress at this time. No changes from kc6 previously documented assessment. Patient and/or family updated on plan of care and expected duration. Pain level reassessed. Patient is alert, oriented x 3, equal unlabored respirations, skin warm/dry/pink. 16:25 Reassessment: Patient appears in no apparent distress at this time. No changes from kc6 previously documented assessment. Patient and/or family updated on plan of care and expected duration. Pain level reassessed. Patient is alert, oriented x 3, equal unlabored respirations, skin warm/dry/pink. Vital Signs: 13:39 BP 105 / 65; Pulse 65; Resp 18; Temp 98.3(O); Pulse Ox 100% on R/A; Weight 72.12 kg; ld1 Height 5 ft. 3 in. ; Pain 5/10; 15:26 BP 99 / 76; Pulse 68; Resp 16 S; Pulse Ox 99% on R/A; kc6 13:39 Body Mass Index 28.17 (72.12 kg, 160.02 cm) ld1 13:39 Pain Scale: Adult ld1 ED Course: 13:36 Patient arrived in ED. mg5 13:40 Isaiah Ghosh DO is Attending Physician. ms3 13:41 Triage completed. ld1 13:41 Arm band placed on right wrist. ld1 14:26 Amy Ferrari, RN is Primary Nurse. kc6 14:26 Patient has correct armband on for positive identification. Bed in low position. Call kc6 light in reach. Side rails up X2. Adult w/ patient. Client placed on continuous cardiac and pulse oximetry monitoring. NIBP monitoring applied. stem lead former on. 14:26 Inserted saline lock: 18 gauge in right antecubital area, using aseptic technique. kc6 Blood collected. Patient maintains SpO2 saturation greater than 95% on room air. 14:46 XRAY Chest (1 view) In Process Unspecified. EDMS 15:26 Casa Ni MD is Referral Physician. ms3 16:28 No provider procedures requiring assistance completed. IV discontinued, intact, kc6 bleeding controlled, No redness/swelling at site. Pressure dressing applied. Administered Medications: No medications were administered Medication: 16:29 VIS not applicable for this client. kc6 Outcome: 15:27 Discharge ordered by . ms3 16:28 Discharged to home ambulatory, with family, with significant other, kc6 16:28 Condition: improved 16:28 Discharge instructions given to patient, Instructed on discharge instructions, follow up and referral plans. Demonstrated understanding of instructions, follow-up care, 16:29 Patient left the ED. kc6 Signatures: Dispatcher [employer] EDMS Isaiah Ghosh, DO ms3 Debbie Ghosh RN RN ld1 Amy Ferrari RN RN kc6 Donna Calderon mg5 Corrections: (The following items were deleted from the chart) 13:41 13:39 Chief complaint: Patient states: Sweating, stomach pains, N/V, Tingling of hands ld1 and fingers to elbows, confusion/memory loss X 30-45 minutes. ld1
[2022-11-28 18:01] VITALS: TEMP 98.3
[2022-11-28 18:02] VITALS: BP 99/76; O2SAT 99
--- NOTE | 2022-11-29 12:23 | EKG ---
Test Date: 2022-11-28 Test Time: 13:48:35 [employer] Maker: Zach SI MEASUREMENT RESULTS: Intervals: Rate: 66 SD: 142 QRSD: 76 QT: 396 QTc: 415 [place]: P: 55 SD: 142 QRS: 72 T: 62 INTERPRETIVE STATEMENTS: Normal sinus rhythm with sinus arrhythmia Normal ECG Compared to ECG 04/16/2021 10:19:14 No significant changes Electronically Signed On 11-29-22 12:20:40 CDT by Yonas Blair
== END 2022-11-28 16:29 | disposition home or self-care (01) ==
LOC: ER 13:32
DX: R10.13 Epigastric pain (principal); R11.10 Vomiting, unspecified; F17.210 Nicotine dependence, cigarettes, uncomplicated; Z88.5 Allergy status to narcotic agent; Z88.8 Allergy status to other drugs, medicaments and biological substances
CPT/HCPCS: 36415; 71045; 80048; 80076; 83690; 83735; 84484; 85025; 93005; 99285